=== PATIENT | male | born 1945 | race Caucasian/White ===

== ENCOUNTER 2025-09-28 14:32 | Emergency (ER) | payer MEDICARE, SELFPAY ==
--- NOTE | 2025-09-28 14:36 | ECG_ITS ---
Test Date: 2025-09-28 15:03:57 Measurements Intervals [place] Rate: 95 P: 0 IN: 0 QRS: -49 QRSD: 117 T: 80 QT: 363 QTc: 457 Interpretive Statements ATRIAL FIBRILLATION LOW QRS VOLTAGE IN PRECORDIAL LEADS INCOMPLETE RIGHT BUNDLE BRANCH BLOCK LEFT ANTERIOR FASCICULAR BLOCK POSSIBLE ANTERIOR MYOCARDIAL INFARCTION Electronically Signed On 09-28-2025 20:02:39 MANAGER CONTRACT by Kashmir Arreguin D.O
[2025-09-28 14:45] VITALS: BP 144/72; PULSE 77; RESP 20; TEMP 36.4; O2SAT 97
--- NOTE | 2025-09-28 15:23 | ED.SOB ---
HPI - SOB/Dyspnea General Chief Complaint: Shortness of Breath/Dyspnea Stated Complaint: Breathing Problems Time Seen by Provider: 09/28/25 15:00 Source: patient and RN notes reviewed Mode of arrival: ambulatory Limitations: no limitations History of Present Illness HPI Narrative: 79-year-old male patient presents to the [facility] complaining of shortness of breath last 2 weeks. Reports is worse with exertion no also reports a cough. She denies any chest pain. Patient reports leg swelling but he says that is chronic. Patient also reports some intermittent abdominal pain and orthopnea. Patient has a history diabetes, hypothyroid, atrial fibrillation, he takes Eliquis for at is on medications. Patient denies any history of congestive heart failure. Patient is a poor historian. Related Data Home Medications ?Medication ?Instructions ?Recorded ?Confirmed ?Last Taken ?Type apixaban 5 mg tablet (Eliquis) mg 09/28/25 Unknown History atorvastatin 80 mg tablet mg 09/28/25 Unknown History blood-glucose sensor (FreeStyle 09/28/25 09/28/25 Unknown History Dylan 3 Sensor device) diltiazem HCl 120 mg mg PO 09/28/25 Unknown History capsule,extended release 24 hr, controlled duloxetine 30 mg capsule,delayed mg PO 09/28/25 Unknown History release furosemide 40 mg tablet mg 09/28/25 Unknown History gabapentin 600 mg tablet mg 09/28/25 Unknown History glipizide 5 mg tablet mg 09/28/25 Unknown History insulin glargine 100 unit/mL (3 unit subcut 09/28/25 Unknown History mL) subcutaneous pen (Lantus Solostar U-100 Insulin) insulin lispro 100 unit/mL subcut 09/28/25 Unknown History subcutaneous pen lancets 33 gauge (OneTouch Delica 09/28/25 09/28/25 Unknown History Plus Lancet) levothyroxine 75 mcg tablet mcg 09/28/25 Unknown History pen needle, diabetic 32 gauge x 09/28/25 09/28/25 Unknown History (TRUEplus Pen Needle) Allergies Allergy/AdvReac Type Severity Reaction Status Date / Time aspirin Allergy Unknown Swelling Verified 09/28/25 15:11 Review of Systems Review of Systems: CONSTITUTIONAL: Denies fever, chills, or sweats. EYES: Denies visual changes, redness, or discharge. ENT: Denies rhinorrhea, congestion, sore throat, or otalgia. CARDIOVASCULAR: Denies chest pain, palpitations, dizziness, lightheadedness. Positive orthopnea and edema RESPIRATORY: Positive for cough and dyspnea. GASTROINTESTINAL: Denies abdominal pain, nausea, vomiting, or diarrhea. GENITOURINARY: Denies dysuria or hematuria. SKIN: Denies rash or itching. MUSCULOSKELETAL: Denies back pain, joint pain, or myalgia. NEUROLOGIC: Denies headache, numbness, or weakness. PSYCHIATRIC: Denies anxiety or depression. All other systems reviewed are negative, except as documented in HPI. PMFSH Comments At the time of my signature, I reviewed and agree with the nursing past medical, surgical, social, and family history. There is no relevant family history pertinent to the patient complaint. Exam Narrative: GENERAL: This is a well-nourished, well-developed adult, in no apparent distress. They are non ill-appearing, nontoxic appearing. HEAD: normocephalic, atraumatic. EYES: Sclera clear/white. Conjunctiva normal. Vision is grossly intact. Extraocular movements intact EARS: External ears normal, Hearing grossly intact. NOSE: External nose normal THROAT: Mucous membranes moist, NECK: Neck supple, no JVD CARDIOVASCULAR: Regular rate and rhythm without murmurs, gallops, or rubs. RESPIRATORY: Diminished. Breath sounds equal bilaterally. No wheezes, rales, or rhonchi. Respiratory rate normal, respiratory effort nonlabored, no respiratory distress GASTROINTESTINAL: Abdomen large, round, nondistended. Mild tenderness throughout. Bowel sounds are active. No hepato-splenomegaly, or palpable masses. No guarding or rigidity. SKIN: warm, Dry, intact with no suspicious lesions or rash, good texture and turgor. NEURO: awake, alert, and oriented to person, place and time. There were no obvious focal neurologic abnormalities. EXTREMITIES: Lower extremities are 3+ pitting. BACK: Nontender without deformity. No CVA tenderness. Course Course Emergency Course: Portions of this record may have been created with voice recognition software Level of Care: Express Care Visit Vital Signs Vital signs: Vital Signs Temperature 97.6 F 09/28/25 14:45 Pulse Rate 77 09/28/25 14:45 Respiratory Rate 20 09/28/25 14:45 Blood Pressure 144/72 H 09/28/25 14:45 Pulse Oximetry 97 09/28/25 14:45 Oxygen Delivery Room Air 09/28/25 14:45 Temperature 97.6 F 09/28/25 14:45 Pulse Rate 77 09/28/25 14:45 Respiratory Rate 20 09/28/25 14:45 Blood Pressure 144/72 H 09/28/25 14:45 Pulse Oximetry 97 09/28/25 14:45 Oxygen Delivery Room Air 09/28/25 14:45 Reviewed Transfer Transfered to: [facility] Transportation: Other (Private vehicle) Transfer rationale: Patient requires higher level care, further evaluation management. Accepting physician: Dr. Trivedi MDM - SOB/Dyspnea MDM Narrative Medical decision making narrative: EKG is atrial fibrillation at a rate of 95. No ischemic findings otherwise. Patient's symptoms are concerning for congestive heart failure. Vital signs hemodynamically stable, normal oxygen saturations. Patient is nontoxic appearing, no apparent distress. Given patient's symptoms, it is recommend the patient seek a higher level care and proceed immediately to the emergency department. Patient is agreeable to go to [facility] ER. Called over to [facility] ER and spoke to Richie Vinson who is aware this patient and Dr. Trivedi accepted the patient for transfer. Patient advised to remain NPO proceed immediately to the ER. Differential Diagnosis Differential diagnosis: Likely acute exacerbation of chronic obstructive airways disease, congestive heart failure, community acquired pneumonia, pulmonary embolism and other (Atrial fibrillation, acute coronary syndrome) ECG Data EKG #1: ECG completion date: 09/28/25 ECG completion time: 15:03 Prior ECG tracings: not available for review EKG Interpretation: normal rate, atrial fibrillation, no ST changes, normal QRS and normal QT Critical Care Time Critical Care Time Critical Care Time: No Discharge Plan Discharge Clinical Impression: Shortness of breath Patient Disposition: Acute Care Hospital Condition: Stable Patient Language: Mongolian Prescriptions: No Action furosemide 40 mg tablet atorvastatin 80 mg tablet gabapentin 600 mg tablet levothyroxine 75 mcg tablet diltiazem HCl 120 mg capsule,ext.rel 24h degradable PO glipizide 5 mg tablet insulin lispro 100 unit/mL insulin pen SUBCUT duloxetine 30 mg capsule,delayed release(DR/EC) PO insulin glargine [Lantus Solostar U-100 Insulin] 100 unit/mL (3 mL) insulin pen SUBCUT (DME) FreeStyle Dylan 3 Sensor Device MISCELLANEOUS (DME) pen needle, diabetic [TRUEplus Pen Needle] 32 gauge x 5/32 needle MISCELLANEOUS (DME) lancets [OneTouch Delica Plus Lancet] 33 gauge misc MISCELLANEOUS Eliquis 5 mg tablet Follow-up/Referrals: Harms,Luis Carlos Gay M.D. [Primary Care Provider] Time of Disposition: 15:23
== END 2025-09-28 15:17 | disposition short-term general hospital (02) ==
PROVIDERS: PCP Family Medicine
DX: R06.02 Shortness of breath (principal); E11.9 Type 2 diabetes mellitus without complications; Z79.4 Long term (current) use of insulin; Z79.84 Long term (current) use of oral hypoglycemic drugs; I48.91 Unspecified atrial fibrillation; E03.9 Hypothyroidism, unspecified; Z79.01 Long term (current) use of anticoagulants
CPT/HCPCS: 93005; 99213; G0463

== ENCOUNTER 2025-11-03 07:08 | Outpatient (CLI) | payer MEDICARE, SELFPAY ==
--- OUTSIDE RECORDS SUMMARY | 2025-11-02 14:10 | XMS_ITS | Encounter Summary ---
Author Organization [facility] Healthcare Address [address] [place] [address] Care Team Providers Care Tax Audit Manager Name Role Phone Luis Carlos Calzada MD Primary Care Provider [phone] Zena Pandya RN Unavailable [phone] Richie Arroyo CAN LINE OPERATOR Unavailable [phone] Encounter Details Date Type Department Care Team (Late st Contact Info) Description 11/02/2025 2:10 PM [employer] Lab [address] [id number] Arrived Social History Tobacco Use Types Packs/Day Years Used Date Smoking Tobacco: Never Smokeless Tobacco: Never Alcohol Use Standard Drinks/Week Comments Never 0 (1 standard drink = 0.6 oz pur e alcohol) Social Connection and Isolation Panel Answer Date Recorded In a typical week, how many times do you talk on the phone with family, friends, or neighbors? Three times a week 01/20/2025 How often do you get togethe r with friends or relatives? Twice a week 01/20/2025 How often do you attend chur ch or islam services? Never 01/20/2025 Do you belong to any clubs o r organizations such as sabianism groups, unions, fraternal or athletic groups, or school groups? No 01/20/2025 How often do you attend meet ings of the clubs or organizations you belong to? Never 01/20/2025 Are you , , di vorced, , never , or living with a partner? 01/20/2025 Overall Financial Resource Strain (CARDIA) Answe r Date Recorded How hard is it for you to pa y for the very basics like food, housing, medical care, and heating? Not very hard 01/20/2025 PHQ-2 Answer Date Recorded PHQ-2 Total Score (If total score is 3 or more points, staff should administer the PHQ-9) 0 10/14/2025 PRAPARE - Transportation Answer Date Re corded In the past 12 months, has l ack of transportation kept you from medical appointments or from getting medications? No 01/10 In the past 12 months, has l ack of transportation kept you from meetings, work, or from getting things needed for daily living? No 01/20/2025 Housing Stability Vital Sign Answer Robbie e Recorded In the last 12 months, was t here a time when you were not able to pay the mortgage or rent on time? No 03/26/2023 In the last 12 months, how many places have you lived? 1 03/26/2023 In the last 12 months, was t here a time when you did not have a steady place to sleep or slept in a mcfp (including now)? No 03/26/2023 Housing Stability Vital Sign Answer Robbie e Recorded In the last 12 months, was t here a time when you were not able to pay the mortgage or rent on time? No 01/20/2025 In the past 12 months, how m any times have you moved where you were living? 0 01/20/2025 At any time in the past 12 m [facility], were you homeless or living in a mcfp (including now)? No 01/20/2025 Social Connection and Isolation Panel Answer Date Recorded In a typical week, how many times do you talk on the phone with family, friends, or neighbors? Three times a week 10/15/2025 How often do you get togethe r with friends or relatives? Three times a week 10/15/2025 How often do you attend chur ch or islam services? Never 10/15/2025 Do you belong to any clubs o r organizations such as sabianism groups, unions, fraternal or athletic groups, or school groups? No 10/15/2025 How often do you attend meet ings of the clubs or organizations you belong to? Never 10/15/2025 Are you , , di vorced, , never , or living with a partner? 10/15/2025 AUDIT-C Answer Date Recorded Q1: How often do you have a drink containing alcohol? Never 09/28/2025 Q2: How many drinks containi ng alcohol do you have on a typical day when you are drinking? Patient does not drink Q3: How often do you have si x or more drinks on one occasion? Never 09/28/2025 Overall Financial Resource Strain (CARDIA) Answe r Date Recorded How hard is it for you to pa y for the very basics like food, housing, medical care, and heating? Not very hard 10/15/2025 Hunger Vital Sign Answer Date Recorded Within the past 12 months, y ou worried that your food would run out before you got the money to buy more. Never true 10/15/20 25 Within the past 12 months, t he food you bought just didn't last and you didn't have money to get more. Never true 10/15/2025 PRAPARE - Transportation Answer Date Re corded In the past 12 months, has l ack of transportation kept you from medical appointments or from getting medications? No 02/2025 In the past 12 months, has l ack of transportation kept you from meetings, work, or from getting things needed for daily living? No 10/15/2025 Housing Stability Vital Sign Answer Robbie e Recorded In the last 12 months, was t here a time when you were not able to pay the mortgage or rent on time? No 10/15/2025 Number of Times Moved in the Last Year Not on fi le 10/15/2025 At any time in the past 12 m [facility], were you homeless or living in a mcfp (including now)? No 10/15/2025 [facility] Utilities Answer Date Recorded In the past 12 months has th e electric, gas, oil, or water company threatened to shut off services in your home? No 10/15/2025 Personal Safety Answer Date Recorded Have you ever been in or are you currently in a harmful physical or emotional relationship or is someone making you feel afraid or unsafe? Denies 09/28/2025 Sex and Gender Information Value Date Recorded Sex Assigned at Not on file Legal Sex Male 11:50 PM [employer] Gender Identity Male 12/11/2022 7:20 PM [employer] Sexual Orientation Straight 05/18/2019 6: 29 PM CDT documented as of this encounter Plan of Treatment Not on file documented as of this encounter Goals Goal Patient Goal Type Associated Problems Recent Progress Patient-Stated? Author HF Goal - Patient's CP status will be stable with increased knowledge of self-care management ACO Care Management On track(10/22 3:59 PM [employer]) Dianna Ortiz RN Note: Problem: Heart Failure Interventions: - Assess for HF exacerbation: dyspnea at rest, reports of increased dyspnea with exertion, sudden weight gain of 3+lbs in 1 day or 5+lbs in 1 week, increased edema in legs/ankles, frequent dry hacking cough, loss of appetite, increased fatigue. - Provide education surrounding fluid restrictions, daily weights, energy conservation techniques, sodium restricted diet, edema control. - Send heart failure educational materials. TRISHA General Goal - Patient schedules and keeps appointments with all recommended providers ACO Care Management On track(10/22 3:58 PM [employer]) Zena Macias RN Note: Problem: Potential for medical complications and readmission if follow-up appointments are not scheduled Interventions: - Ensure all follow-up appointments are scheduled, all prescribed medications have been received. - Address any barriers for keeping scheduled appointment. - Coordinate with patient/caregiver(s) to ensure patient is able to keep scheduled appointment. - Emphasize importance of keeping scheduled appointments. - Identify and discuss questions for next provider visit. - Follow up with patient after scheduled appointment(s) to review any new orders or changes made to medication regimen. TRISHA General Goal - Patient / caregiver verbalizes lifestyle changes necessary to meet self-care needs and executes self-care activities to utmost capability ACO Care Management On track(10/22 3:58 PM [employer]) Zena Macias RN Note: Problem: At Risk for Self Care Deficit Interventions: - Assess patient's level of dependence on others along with current level of assistance being provided. - Use motivational interviewing to help guide the patient in accepting the needed amount of assisstance, as applicable. - Contact caregiver and assess their involvement with patient and level of assistance provided, as appropriate. - Assess appropriateness for Home Health. Start referral process if skilled need is present. - Encourage independent ADL's as appropriate. Ensure patient has the appropriate tools at home to be as independent as possible. - Provide fall prevention education to patient and caregiver. - Evaluate need for assistive devices. - Refer to SW if appropriate and patient is agreeable. TRISHA General Goal - Level of ADL/IADL assistance will meet patient's needs ACO Care Management On track(10/22 3:58 PM [employer]) Zena Macias RN Note: Problem: Inadequate assistance to manage ADL's/IADL's Interventions: - Contact current caregiver and assess their involvement with patient and level of assistance provided. Inquire if any other family or friends can provide additional assistance. - Assess appropriateness for Home Health. Start referral process if skilled need is present. - Encourage independent ADL's as appropriate. Ensure patient has the appropriate tools at home to be as independent as possible. - Refer to SW if appropriate and patient is agreeable. documented as of this encounter Procedures Procedure Name Priority Date/Time Associated Diagnosis Comments EGFR Routine 11/02/2025 2:24 PM [employer] RENAL FUNCTION PANEL Routine 11/02/2025 2:24 PM [employer] documented in this encounter Results * (ABNORMAL) eGFR (11/02/2025 2:24 PM [employer]) eGFR 29(L) >=60 mL/min/1. 73 m2 Comment: Interpretive Data Reference Interval Normal >/= 90 mL/min/1.73m2 Mildly decreased* 60 - 89 mL/min/1.73m2 Mildly to moderately decreased 45 - 59 mL/min/1.73m2 Moderately to severely decreased 30 - 44 mL/min/1.73m2 Severely decreased 15 - 29 mL/min/1.73m2 Kidney Failure < 15 mL/min/1.73m2 *Relative to young adult level Estimated glomerular filtration rate is determined by the 2020 CKD-EPI equation recommended by the National Kidney Foundation (A Unifying Approach to GFR Estimation: Recommendations of the NKF-ASK Task Force on Reassessing the Inclusion of Race in Diagnosing Kidney Disease, JASN 2020). The CKD-EPI equation should not be used for patients with unstable renal function and has not been validated in children and those over 70. Current interpretive data was last reviewed 2021. Blood 11/02/2025 2:24 PM [employer] 11/02/2025 2:53 PM [employer] us Ryan Aceves MD LAB BLOOD ORDERABLES Final Re sult [facility] ([place]) [facility] Department [place] [address] * (ABNORMAL) Renal function panel (11/02/2025 2:24 PM [employer]) Sodium 145 135 - 145 mmol/L Potassium, pl 4.9 3.3 - 4.9 mmol/L [facility] ([place]) Chloride 114(H) 97 - 110 mmol/L [facility] ([place]) CO2 21(L) 22 - 32 mmol/L [facility] ([place]) Anion gap 10 2 - 15 mmol/L [facility] ([place]) BUN 43(H) 6 - 25 mg/dL [facility] ([place]) Creatinine 2.29(H) 0.80 - 1.30 mg/dL [facility] ([place]) Glucose 69(L) 70 - 199 mg/dL [facility] ([place]) Comment: Interpretive Data Fasting glucose >/= 126 mg/dl is diagnostic for diabetes. Fasting is defined as no caloric intake for at least 8 hours. Fasting glucose between 100 mg/dl to 125 mg/dl is diagnostic of prediabetes. In a patient with classic symptoms of hyperglycemia or hyperglycemic crisis, a random glucose >/= 200 mg/dl is diagnostic for diabetes. In the absence of unequivocal hyperglycemia, results should be confirmed by repeat testing. The classification and Diagnosis of Diabetes Diabetes Care 202; 46: S19-S40. Current interpretive data was last revised 2022. Calcium 9.9 8.5 - 10.3 mg/dL [facility] ([place]) Phosphorus, pl 2.9 2.3 - 4.5 mg/dL [facility] ([place]) Albumin 4.1 3.5 - 5.0 g/dL [facility] ([place]) Blood 11/02/2025 2:24 PM [employer] 11/02/2025 2:53 PM [employer] Ryan Aceves MD LAB BLOOD ORDERABLES Final Re sult [facility] ([place]) 1 [facility] Department [place] [address] documented in this encounter Visit Diagnoses Not on filedocumented in this encounter Care Teams Tax Audit Manager Relationship Specialty Start Date End Date Luis Carlos Calzada MD [address] [place] [address] PCP - General 02/09/17 Zena Pandya RN [address] [place] [address] [address] [place], [place] [id number] Geographic Analyst 10/07/25 Richie Arroyo LCSW [address] [place] [address] [address] [place] [address] Graphic Design Professor 10/07/25 documented as of this encounter
--- NOTE | ~2025-11-03 | PE_ITS ---
EXAMINATION: PET_PETPSMAST_PT DATE: 11/03/2025 09:56 INDICATION: Prostate cancer TECHNIQUE: 5.202 mCi of Illucix Ga-68([id number]) was administered i.v. Low dose computed tomography (CT) images were acquired from the base of the brain to the base of the brain to the proximal thighs for attenuation correction and anatomic localization. Positron emission tomography (PET) images were acquired in the same distribution beginning 67 minutes after injection. Images including fused PET/CT images were reconstructed in axial, coronal, and sagittal planes. Automated exposure control technique was employed. The dose-length product was 1242.86mGy-cm. COMPARISON: None FINDINGS: Head/neck: Typical pattern of symmetric physiologic increased activity in the lacrimal, parotid and submandibular glands as well as along the mucosa of the nasal and oral cavities, pharynx and hypopharynx. No pathologically enlarged cervical lymphadenopathy or suspicious foci of increased uptake in the visualized head or neck. Chest: Calcified right upper lobe nodule along with calcified right hilar and mediastinal lymph nodes consistent with old granulomatous disease. No other suspicious pulmonary nodules, pneumonia or pleural effusion. Mild cardiomegaly. Atherosclerotic coronary artery calcifications and aortic valve calcific loc ation. No pericardial effusion. Thoracic aorta is normal in caliber. No pathologically enlarged or PSMA avid thoracic lymphadenopathy. Abdomen/pelvis/proximal thighs: Physiologic renal accumulation and excretion of activity in the kidneys, bladder and along portions of ureters. There are bilateral intraureteral stents with loops formed in the renal pelvises and in the bladder. 5 mm stone positioned along side the right internal ureteral stent at the junction of the mid to distal right ureter. There are additional renal stones, 2 in the left kidney measuring up to 5 mm and one in the left kidney measuring 4 mm. Photopenic defects associated with a couple renal cysts measuring 2.4 cm at the right kidney and 2.3 cm the left kidney. Status post prostatectomy. There is increased PSMA uptake associated with soft tissue density at the prostatectomy bed most prominent posteriorly, inferiorly and lateral and to lesser degree at the more cephalad prostatectomy bed peripheral to a central photopenic defect which would favor recurrent disease over urine activity. Normal degree and slightly heterogenous pattern of increased uptake throughout the liver and spleen without radiologic correlate or dominant PSMA avid lesion. Multiple small gallstones layering along the dependent aspect of the normal gallbladder. Dystrophic calcification at the head of the pancreas, likely sequela of chronic pancreatitis. Bilateral adrenal glands are normal. Moderate uptake scattered throughout the bowels with typical duodenal and proximal jejunal predominance and without radiologic correlate, also likely physiologic. Mild to moderate without adjacent from trace stranding to suggest diverticulitis. There are small to moderate-sized fat-containing direct and indirect left inguinal hernias. There are bilateral PSMA avid obturator lymph nodes measuring 7 mm in maximal diameter with maximal SUV of 15.3 on the left and measuring 5 mm with maximal SUV of 17.4 and 4 mm with maximal SUV of 4.0 on the right. There is an additional PSMA avid superior left external iliac chain lymph node measuring 8 mm in short axis diameter with central fatty hilum and with maximal SUV of 17.4. Musculoskeletal: Mild spondylosis with bridging osteophytes at multiple levels consistent with diffuse idiopathic skeletal hyperostosis (DISH). No suspicious lytic, blastic or abnormally PSMA avid bone lesions. IMPRESSION: 1. Prominent increased PSMA activity at what appears to be the bed of a prior prostatectomy which suggests residual/locally recurrent disease. 2. Increased activity associated with a normal-sized bilateral obturator and left external iliac chain lymph nodes consistent with metastatic disease. Reviewed, dictated and finalized at location A. RANCE ADVISER IMPRESSION: 1. Prominent increased PSMA activity at what appears to be the bed of a prior p rostatectomy which suggests residual/locally recurrent disease. 2. Increased activity associated with a normal-sized bilateral obturator and le ft external iliac chain lymph nodes consistent with metastatic disease.
--- OUTSIDE RECORDS SUMMARY | 2025-11-03 07:13 | XMS_ITS ---
Author Organization [facility] Address [address] [place] [address] Care Team Providers Care Mat Weaver Name Role Phone Luis Carlos Calzada MD Primary Care Provider [phone] Zena Pandya RN Unavailable [phone] Richie Arroyo NAILHEAD OPERATOR Unavailable [phone] Active Problems Problem Noted Date Diagnosed Date Shortness of breath 09/28/2025 Assessment & Plan (10/14/2025 11:27 AM HEAD OF IT): Resolved. Will continue to monitor. Elevated brain natriuretic peptide (BNP) level 1 11/28/2024 Assessment & Plan (10/14/2025 11:27 AM HEAD OF IT): Will continue to monitor. Swelling improved. Pneumonia 09/28/2025 Assessment & Plan (10/14/2025 11:27 AM HEAD OF IT): Resolved. Will continue to monitor. Hyperkalemia 09/28/2025 Assessment & Plan (10/14/2025 11:27 AM HEAD OF IT): Will get updated labs. Will continue to monitor. LORAINE (acute kidney injury) 09/28/2025 Assessment & Plan (10/14/2025 11:27 AM HEAD OF IT): Improving. Will continue to monitor. Will be getting updated kidney function labs next week. Continues to follow with Nephrology and Urology. Will continue to monitor. Hypertension associated with diabetes 01/22/2025 Assessment & Plan (09/10/2025 11:05 AM CDT): Stable and well-controlled. Continues on Cardizem. We will continue to monitor. Congestive heart failure, un specified HF chronicity, unspecified heart failure type 01/09/2025 Assessment & Plan (10/14/2025 11:27 AM HEAD OF IT): SOB resolved. Lower leg swelling improving. Will continue to hold Lasix while waiting for kidney function to improve. Continues to follow with Cardiology and Nephrology. Will continue to monitor. Continues on Cardizem Assessment & Plan (09/10/2025 11:05 AM CDT): Stable and well controlled. No issues with shortness or wheezing. No lower leg swelling. Continues on Cardizem. We will continue to monitor and follow with Cardiology. Assessment & Plan (02/26/2025 8:28 AM CDT): Having SOB with some wheezing. Lasix is not being given due to LORAINE. Having lower leg swelling as well. No CP. Will get BNP to assess fluid status. Orders: Pro B-type natriuretic peptide; Future Type 2 diabetes mellitus wit h stage 4 chronic kidney disease, with long-term current use of insulin 08/26/2024 Assessment & Plan (10/14/2025 11:27 AM HEAD OF IT): Will get updated labs. Continues to avoid NSAIDs and other nephrotoxic medications. Will continue to follow with nephrology. Will continue to monitor. Assessment & Plan (09/10/2025 11:05 AM CDT): Does show some decrease in kidney function. Continues to avoid nephrotoxic medications and ensure proper hydration. We will continue to monitor. Continues to work on tight control of blood pressure and cholesterol. Assessment & Plan (02/26/2025 8:28 AM CDT): Will repeat CMP and monitor. Continues to hold lasix and avoiding NSAIDs. Orders: Comprehensive metabolic panel; Future Albumin Creatinine Ratio, Urine; Future Assessment & Plan (11/27/2024 1:11 PM HEAD OF IT): Continue to monitor CMP, eGFR, and discussed avoiding NSAIDs due to kidney disease. Will recheck in 3 months. Following with Nephrology Assessment & Plan (08/26/2024 10:42 AM CDT): Continue to monitor CMP, eGFR, and discussed avoiding NSAIDs due to kidney disease. Will recheck in 3 months. Following with Nephrology. Medicare annual wellness visit, subsequent 08/20 Assessment & Plan (09/10/2025 11:05 AM CDT): In regard to health maintenance, DM-annual visual examination and podiatry visits every 3 months advised. Influenza vaccine- Given in office Eat a healthy diet: focus on lean meats and proteins, more fruits, vegetables and whole grains and low in sugars and fats. Limit red meat and avoid processed meat. Maintain a healthy weight; avoid being overweight. Aim for a normal body mass index (BMI) of 18.5-24.9. Help learning to eat healthier, we can set up appointment with certified addiction counselor/warehouse packer. Have an active lifestyle, strive for 30 minutes of moderate exercise 5 times a week and strength or resistance training at least twice a week. Use broad-spectrum (UVA+UVB) sunscreen with SPF 30 or greater, is water resistant, limit time spent in the sun (10 am-4pm), wear hat, wear UV protective clothing, wear sunglasses. Never use a tanning bed. Skin that was irradiated may be more sensitive over your lifetime. Do not smoke or chew tobacco; participate in a smoking cessation program. Limit alcohol intake, 1 drink per day for a woman and 2 drinks per day for a man. Assessment & Plan (08/26/2024 10:34 AM CDT): In regard to health maintenance, PSA- ordered DM-annual visual examination and podiatry visits every 3 months advised. Influenza vaccine- Declined ASCVD risk: 45.8% Eat a healthy diet: focus on lean meats and proteins, more fruits, vegetables and whole grains and low in sugars and fats. Limit red meat and avoid processed meat. Maintain a healthy weight; avoid being overweight. Aim for a normal body mass index (BMI) of 18.5-24.9. Help learning to eat healthier, we can set up appointment with certified addiction counselor/warehouse packer. Have an active lifestyle, strive for 30 minutes of moderate exercise 5 times a week and strength or resistance training at least twice a week. Use broad-spectrum (UVA+UVB) sunscreen with SPF 30 or greater, is water resistant, limit time spent in the sun (10 am-4pm), wear hat, wear UV protective clothing, wear sunglasses. Never use a tanning bed. Skin that was irradiated may be more sensitive over your lifetime. Do not smoke or chew tobacco; participate in a smoking cessation program. Limit alcohol intake, 1 drink per day for a woman and 2 drinks per day for a man. Assessment & Plan (08/20/2023 9:42 AM CDT): Preventive exam; reviewed recommended preventive screenings and vaccinations. Encourage annual flu vaccine. Hypothyroidism 08/20/2023 Assessment & Plan (09/10/2025 11:05 AM CDT): Euthyroid. We will continue on Synthroid. We will continue to monitor. Assessment & Plan (02/26/2025 8:28 AM CDT): Euthryoid. Will repeat levels. Will continue on Synthroid. Will continue to monitor. Orders: TSH; Future T4, free; Future Assessment & Plan (08/26/2024 10:05 AM CDT): Levothyroxine increased to 75 mcg will recheck in 3 months. Assessment & Plan (08/20/2023 9:43 AM CDT): Levothyroxine 50 mcg daily. Will check TSH/T4 and make changes as needed. Lab Results Component Value Date TSH 3.51 06/29/2022 TSH 7.87 (H) 11/18/2021 TSH 5.86 (H) 11/27/2014 Pharyngoesophageal dysphagia 10/20/2022 Assessment & Plan (10/20/2022 11:43 AM HEAD OF IT): Try to swallow with sips of water all dry foods Modified Barium swallow study Laryngeal spasm 10/20/2022 Assessment & Plan (10/20/2022 11:44 AM HEAD OF IT): Try to swallow with sips of water all dry foods Modified Barium swallow study Centralized Scheduling: Start Pepcid (Famotidine) 40 mg at bedtime Acute on chronic diastolic congestive heart fail ure 08/23/2022 Assessment & Plan (09/10/2025 11:05 AM CDT): Stable and well-controlled. Continues to show no signs of fluid overload. Denies shortness of breath, wheezing, or difficulty sleeping when lying down. Continues on Cardizem and Eliquis. We will continue to monitor. Assessment & Plan (01/22/2025 10:03 AM CDT): Symptomatically improved. Limit sodium. Will hold furosemide for now due to LORAINE. Monitor symptoms closely. Follow-up with cardiology and nephrology. Red flags reviewed. Assessment & Plan (11/27/2024 1:11 PM HEAD OF IT): Stable and well controlled. Will continue on Lasix. No signs of fluid overload. Will continue to monitor. Assessment & Plan (08/26/2024 10:38 AM CDT): Continues on Laxis. Patient no longer following with Cardiology. Encouraged to get in and get appointment. DELPHINE (obstructive sleep apnea) 08/23/2022 Assessment & Plan (09/10/2025 11:05 AM CDT): Compliant with nightly CPAP use. Does state that if he loses another 10 lb can get the inspire implantable device. We will continue to monitor. Denies daytime fatigue or drowsiness. Assessment & Plan (01/22/2025 10:02 AM CDT): Highly encouraged CPAP use. Assessment & Plan (08/26/2024 10:05 AM CDT): Not using CPAP discussed benefits of wearing machine on overall health. Assessment & Plan (08/20/2023 9:41 AM CDT): Does not currently CPAP. Discussed untreated sleep apnea contributing to cardiovascular risk. Dyslipidemia associated with type 2 diabetes ivet litus 12/23/2020 Assessment & Plan (09/10/2025 11:05 AM CDT): LDL at goal of less than 70. We will continue to monitor. We will continue on atorvastatin. Stable and well-controlled. Orders: atorvastatin (LIPITOR) 80 mg tablet; Take 1 tablet (80 mg total) by mouth daily Assessment & Plan (02/26/2025 8:28 AM CDT): Lipid panel ordered. Will continue to monitor. Continues on Atorvastatin. Orders: Lipid panel; Future Assessment & Plan (11/27/2024 1:10 PM HEAD OF IT): Lipid panel order placed by another provider. Will get labs today. Will continue to monitor. Will continue on Atorvastatin and monitor. Assessment & Plan (08/26/2024 10:04 AM CDT): Lipid panel not stable. Lipitor increased to 80 mg. Discussed heart healthy diet and lifestyle. Will recheck in 3 months. Assessment & Plan (08/20/2023 9:21 AM CDT): Continues atorvastatin 40 mg daily. Assessment & Plan (03/22/2021 10:15 AM CDT): Atorvastatin 40mg daily Patient should focus on limiting bad fats in the diet and using exercise as a way to improve the lipid status. Secondary prevention. Reviewed medications. Denies any statin Ses. Reviewed diet/exercise recommendations. Reviewed red flags. Assessment & Plan (12/23/2020 2:16 PM HEAD OF IT): Lab Results Component Value Date CHOL 137 12/15/2020 CHOL 152 06/10/2020 CHOL 194 02/11/2019 HDL 42 12/15/2020 HDL 38 (L) 06/10/2020 HDL 40 02/11/2019 LDL 151 (H) 03/05/2017 LDL 127 09/20/2016 LDL 136 (H) 02/03/2016 TRIG 142 12/15/2020 TRIG 183 (H) 06/10/2020 TRIG 176 (H) 02/11/2019 Patient should focus on limiting bad fats in the diet and using exercise as a way to improve the lipid status. Secondary prevention. Reviewed medications. Lipid panel ordered; will call w/results when rec'd. Denies any statin Ses. Reviewed diet/exercise recommendations. Reviewed red flags. Class 2 severe obesity with serious comorbidity and body mass index (BMI) of 36.0 to 36.9 in adult 12/23/2020 Assessment & Plan (10/14/2025 11:27 AM HEAD OF IT): Encouraged heart healthy diet and lifestyle. Advised 150 min/week of aerobic exercise. Assessment & Plan (09/10/2025 11:05 AM CDT): Encouraged heart healthy diet and lifestyle. Advised 150 min/week of aerobic exercise. To be congratulated on weight loss success. Continues to keep up the good work. Assessment & Plan (02/26/2025 8:28 AM CDT): Encouraged heart healthy diet and lifestyle. Advised 150 min/week of aerobic exercise. Assessment & Plan (01/22/2025 10:02 AM CDT): Limit sodium intake. Monitor weight. Assessment & Plan (11/27/2024 1:10 PM HEAD OF IT): Weight appropriate for patient. Assessment & Plan (08/26/2024 10:04 AM CDT): Encouraged heart healthy diet and lifestyle. Advised 150 min/week of aerobic exercise. Assessment & Plan (03/22/2021 10:10 AM CDT): Reviewed need to lose weight, reviewed health benefits. Reviewed recommendations for daily intake & activity 20-30 minutes/day. Discussed healthy diet and importance of regular physical activity. Assessment & Plan (12/23/2020 2:25 PM HEAD OF IT): Reviewed need to lose weight, reviewed health benefits. Reviewed recommendations for daily intake & activity 20-30 minutes/day. Discussed healthy diet and importance of regular physical activity. Has been exercising regularly. Prostate cancer 11/26/2020 Overview (11/26/2020): Added automatically from request for surgery [id number] Assessment & Plan (09/10/2025 11:05 AM CDT): Stable and controlled. Continues to follow with Urology. We will continue to monitor. Assessment & Plan (08/26/2024 10:03 AM CDT): PSA lab ordered for next appointment. Continue to follow with Urology. Assessment & Plan (08/20/2023 9:39 AM CDT): PSA check every 6 months following with urology. Assessment & Plan (03/22/2021 10:11 AM CDT): Had surgery 01/04/21 w/Dr Evans. Has healed w/o difficulty. Denies any urinary issues. Reports that chemo/xrt not indicated. Assessment & Plan (12/23/2020 2:15 PM HEAD OF IT): Has surgery scheduled 01/04/21 w/Dr Evans. History of colonic polyps 10/29/2020 Overview (10/29/2020): Added automatically from request for surgery [id number] Need for influenza vaccination 09/22/2020 Assessment & Plan (09/10/2025 11:05 AM CDT): Flu vaccine given in office today. Orders: Flu Vaccine High Dose Tri PF 65y+ IM - Fluzone High Dose () Assessment & Plan (11/27/2024 1:09 PM HEAD OF IT): Flu vaccine given at appointment Assessment & Plan (09/22/2020 10:39 AM HEAD OF IT): Flu vaccine given today. Discussed possible tenderness/redness at injection site. Colon cancer screening 09/22/2020 Assessment & Plan (09/22/2020 10:38 AM HEAD OF IT): Refuses colonoscopy; aware that it is gold standard for CRC screening. Agreeable to cologuard. Aware that cologuard kit will be mailed with directions. To call if no results rec'd 1-2 weeks after kit mailed back for completion of test. Diabetic polyneuropathy asso ciated with type 2 diabetes mellitus 09/22/2020 Assessment & Plan (09/10/2025 11:05 AM CDT): Reports significant improvement better control of blood sugars. Continues on duloxetine 30 mg daily. We will continue to monitor. Assessment & Plan (02/26/2025 8:28 AM CDT): Continues to having neuropathy. Continues with Duloxetine and Gabapentin. Will continue to monitor. Assessment & Plan (11/27/2024 1:09 PM HEAD OF IT): Neuropathy not well controlled. Will continue on Gabapentin. Referral placed to Neurology as well for additional relief and evaluation. Assessment & Plan (08/26/2024 10:03 AM CDT): Continue on Gabapentin. Feet are unchanged. Assessment & Plan (12/23/2020 2:15 PM HEAD OF IT): Improvement noted w/gabapentin. Denies any med SE. Assessment & Plan (09/22/2020 11:45 AM HEAD OF IT): +neuropathy. Aware to check feet. Discussed worsening if BG remains uncontrolled. Hx of colonic polyps 05/20/2020 Overview (05/20/2020): Added automatically from request for surgery [id number] Elevated PSA 05/10/2019 Assessment & Plan (12/23/2020 2:12 PM HEAD OF IT): Scheduled for prostate surgery 01/04/21 w/Dr Evans. Assessment & Plan (09/22/2020 11:46 AM HEAD OF IT): Has bx 09/30/20 w/Dr Evans at [facility]. MRI shows high suspicion for malignancy. Assessment & Plan (05/10/2019 9:33 AM CDT): PSA 02/11/19 PSA=8.94. Will repeat. Can be discussed w/Dr Galeana at [facility] for kidney stones also. Screening for malignant neoplasm of colon 2017 Primary osteoarthritis of right knee 07/17/2017 Assessment & Plan (08/26/2024 10:01 AM CDT): Parking placard filled out for patient. Discussed avoiding NSAIDs due to kidney disease, and taking Tylenol 650 mg PRN ordered. Type 2 diabetes mellitus wit h hypoglycemia, with long-term current use of insulin 03/14/2017 Overview (04/06/2017): Type 2 diabetes mellitus with hyperglycemia, without long-term current use of insulin Assessment & Plan (10/14/2025 11:27 AM HEAD OF IT): Blood sugar low at 68 despite eating bonita's and breakfast this AM. Increased and started to resolve symptoms after eating jelly beans. Will decrease Lantus to 24 Units and continue to follow sliding scale insulin instructions. Will continue on Glipizide. Lab Results Component Value Date HGBA1C 7.9 (H) 08/28/2025 HGBA1C 8.9 (H) 03/19/2025 HGBA1C 11.1 (H) 01/12/2025 Office Visit on 10/14/2025 Component Date Value Ref Range Status Glucose Blood, POC 10/14/2025 68 Normal Fasting 70 - 100, Random <200 mg/dL Final Orders: insulin glargine (LANTUS) 100 unit/mL (3 mL) pen for injection; Inject 24 Units under the skin nightly POCT glucose Assessment & Plan (09/10/2025 11:05 AM CDT): Stable and well-controlled. Significant improvement in A1c. We will continue on glipizide, Lantus, and Humalog. We will continue to monitor. Lab Results Component Value Date HGBA1C 7.9 (H) 08/28/2025 HGBA1C 8.9 (H) 03/19/2025 HGBA1C 11.1 (H) 01/12/2025 Assessment & Plan (02/26/2025 8:28 AM CDT): Having low blood sugars in the morning around the 60s. He states he is having nightly blood sugars around 200s which he thinks is why after the 28 units his blood sugar is low in the AM. Advised if less than 210 to do 24 units and we will monitor. Will continue on Lantus nightly, Humalog with meals, Glipizide, and monitoring blood sugars. Orders: Comprehensive metabolic panel; Future CBC with auto differential; Future Hemoglobin A1c; Future Assessment & Plan (01/22/2025 10:03 AM CDT): Improving. Continue current regimen. Keep follow-up next month to re-evaluate. RTC sooner for any concerns. Red flags reviewed. Assessment & Plan (11/27/2024 1:09 PM HEAD OF IT): Still having elevated blood sugars even after increases Lantus to 28 units. Will restart Humalog with meals and continue to monitor. Lab Results Component Value Date HGBA1C 10.4 (H) 08/19/2024 HGBA1C 9.4 (H) 08/13/2023 HGBA1C 8.7 (H) 06/14/2023 Assessment & Plan (10/07/2024 11:35 AM HEAD OF IT): Blood sugar 312 in office. A1C [id number]. Lantus increased 28 U nightly. Will use CGM for blood sugar monitoring. Will recheck in 3 months. Assessment & Plan (08/20/2023 9:40 AM CDT): Instructed to resume glipizide, to take 2.5 mg twice daily. Continue basaglar 25 units nightly and lispro for bs >150. A1c not at goal. Will repeat labs in 3 months. Assessment & Plan (12/23/2020 2:13 PM HEAD OF IT): Lab Results Component Value Date HGBA1C 9.9 (H) 12/15/2020 HGBA1C 11.5 % 09/22/2020 HGBA1C 10.8 (H) 06/10/2020 Improvement in A1c. Congratulated on results--especially over the holidays. Reviewed dietary/exercise recommendations. Instructed to perform daily foot check. Reviewed medication side effects & scheduling. To check/record FSBS & bring to appointments. Labs ordered; will call with results when received. To make follow up appointment in 3 months. Reviewed red flags; what would warrant further evaluation. Assessment & Plan (04/06/2020 1:46 PM CDT): Reviewed diabetic diet and need for complete labs and will await these pending labs. Other emphysema 09/14/2016 Overview (02/16/2017): COPD Assessment & Plan (09/10/2025 11:05 AM CDT): Stable and well-controlled. Continues to show no signs of recent flare-ups or shortness of breath. We will continue to monitor. Not currently using any inhalers. Assessment & Plan (02/26/2025 8:28 AM CDT): Stable and no recent flare ups. Continues to use Albuterol inhaler PRN and Breo Ellipta with relief. Assessment & Plan (08/26/2024 10:01 AM CDT): Controlled Ellipta. Denies recent exacerbations and continues to follow with Pulmonology. Assessment & Plan (08/20/2023 9:20 AM CDT): Following with pulmonology Dr. Canales. Continues breo ellipta. Denies any recent exacerbations or need for albuterol. Assessment & Plan (03/22/2021 10:10 AM CDT): Has rescue inhaler but no maintenance inhaler. No exacerbations. Doing well w/o inhalers currently. Assessment & Plan (12/23/2020 2:26 PM HEAD OF IT): No exacerbations. Denies SOB/cough. Assessment & Plan (04/06/2020 1:47 PM CDT): No recent exacerbation. Symptoms have been well controlled. Benign prostatic hyperplasia without urinary obs truction 04/29/2014 Assessment & Plan (09/10/2025 11:05 AM CDT): Stable and controlled. Will continue to monitor. Assessment & Plan (02/26/2025 8:28 AM CDT): Stable and controlled. Will continue to monitor. Assessment & Plan (12/23/2020 2:13 PM HEAD OF IT): Has prostate surgery scheduled for 01/04/21 w/Dr Evans. Hypogonadism in male 01/28/2014 Current Treatment and Therapy Plans No current plan information found. Past Treatment and Therapy Plans No past plan information found. Lifetime Dose Tracking * Chemical Lifetime Dose Automatic Entry Manual Entr y Fluoro Time 5.433 minutes 4.933 minutes 0.5 minutes Air kerma at the reference point (Ka,r) 195.79 mGy 1 95.79 mGy 0 mGy Resolved Problems Problem Noted Date Diagnosed Date Resolved Date Diabetic polyneuropathy asso ciated with type 2 diabetes mellitus 08/20/2023 08/26/2024 Assessment & Plan (08/20/2023 9:41 AM CDT): Discussed importance of glycemic control. Continue gabapentin. Checking feet daily. Osteomyelitis of left foot, unspecified type 3 08/26/2024 Multifocal atrial tachycardia 08/23/2022 08/26/2024 Assessment & Plan (08/26/2024 10:34 AM CDT): Controlled with Diltiazem. Morbid (severe) obesity due to excess calories 06/29/2022 11/27/2024 Need for pneumococcal vaccination 09/22/2020 12/23/2020 Assessment & Plan (09/22/2020 10:39 AM HEAD OF IT): Pneumovax 23 vaccine given today. Discussed possible tenderness/redness at injection site. BMI 38.0-38.9,adult 09/22/2020 12/23/19 21 Assessment & Plan (09/22/2020 10:38 AM HEAD OF IT): Reviewed need to lose weight, reviewed health benefits. Reviewed recommendations for daily intake & activity 20-30 minutes/day. Discussed healthy diet and importance of regular physical activity. Uncontrolled type 2 diabetes mellitus with hyperglycemia 09/22/2020 08/26/2024 Assessment & Plan (08/26/2024 10:02 AM CDT): BS was 312 in office. A1C not at goal. Increased Lantus to 28 Units nightly. Will recheck in 3 months. Assessment & Plan (03/22/2021 10:12 AM CDT): Lab Results Component Value Date HGBA1C 9.9 (H) 12/15/2020 HGBA1C 11.5 % 09/22/2020 HGBA1C 10.8 (H) 06/10/2020 A1c=9.2% today. Has been trying to improve diet. Discussed increasing activity. Reviewed dietary/exercise recommendations. Instructed to perform daily foot check. Reviewed medication side effects & scheduling. To check/record FSBS & bring to appointments. To make follow up appointment in 3 months. Reviewed red flags; what would warrant further evaluation. Assessment & Plan (12/23/2020 2:24 PM HEAD OF IT): Lab Results Component Value Date HGBA1C 9.9 (H) 12/15/2020 HGBA1C 11.5 % 09/22/2020 HGBA1C 10.8 (H) 06/10/2020 Improvement in A1c. Congratulated on results--especially over the holidays. ozempic 0.25mg subcutaneous injection every 7 days. Reviewed med SE& scheduling. Reviewed dietary/exercise recommendations. Instructed to perform daily foot check. Reviewed medication side effects & scheduling. To check/record FSBS & bring to appointments. Labs ordered; will call with results when received. To make follow up appointment in 3 months. Reviewed red flags; what would warrant further evaluation. Assessment & Plan (09/22/2020 11:48 AM HEAD OF IT): Refuses insulin at this time. Lab Results Component Value Date HGBA1C 11.5 % 09/22/2020 HGBA1C 10.8 (H) 06/10/2020 HGBA1C 10.6 10/07/2019 Hand out for glycemic index given to Mr & Mrs Hill. Discussed diet. Needs to greatly change diet & increase activity. Discussed poor healing after prostate bx d/t elevated BG/A1c. Reviewed end-organ damage. Website/info for ADA given to Mr Mrs Hill to review DM education, tips, help. Declines repeat DM educator. Stressed need for great diet/activity changes at this time. Declines insulin/injections at this time. Discussed need for additional meds if he cannot get under control with increased activity/improved diet. Hyperlipidemia 04/06/2020 12/23/2020 Assessment & Plan (09/22/2020 11:46 AM HEAD OF IT): Poor diet habits. We will check labs and make adjustments to medications as needed. Patient should focus on limiting bad fats in the diet and using exercise as a way to improve the lipid status. Secondary prevention. Reviewed medications. Lipid panel ordered; will call w/results when rec'd. Denies any statin Ses. Reviewed diet/exercise recommendations. Reviewed red flags. Assessment & Plan (04/06/2020 1:47 PM CDT): Reviewed heart healthy eating. Bilateral kidney stones 05/21/201909/12 Overview (05/21/2019): Added automatically from request for surgery [id number] Refused influenza vaccine 05/10/2019 Obesity (BMI 30-39.9) 05/10/20192020 Assessment & Plan (04/06/2020 1:47 PM CDT): Weight loss encouraged. Assessment & Plan (05/10/2019 9:33 AM CDT): Reviewed need to lose weight, reviewed health benefits. Reviewed recommendations for daily intake & activity 20-30 minutes/day. Discussed healthy diet and importance of regular physical activity. Swelling of lower extremity 03/02/2017 12/23/2020 Overview (04/06/2017): Left leg swelling Preoperative state 12/01/2016 0 Overview (02/16/2017): Preoperative clearance Calculus of kidney 01/28/2014 5 Assessment & Plan (05/10/2019 9:32 AM CDT): Referral to Dr Galeana. Will continue flomax until seen. Aware to push fluids. Strain urine. Specimen cup given to bring in any stones for testing. Reviewed med side effects & scheduling. Discussed different options of treatment: stents or lithotripsy if unable to pass stone on own. Reviewed red flags; what would warrant more emergent evaluation.
--- OUTSIDE RECORDS SUMMARY | 2025-11-03 07:13 | XMS_ITS | Encounter Summary ---
Author Organization [facility] Healthcare Address [address] [place] [address] Care Team Providers Care Event Marketing Manager Name Role Phone Luis Carlos Calzada MD Primary Care Provider [phone] Carlos Mcneill PT Unavailable Unavailable Maria Luisa Pittman FLOORWORKER DISTRIBUTOR Unavailable Unavailab Gordo Owens PT Unavailable Unavaila ble Dianna Stanford RN Unavailable [phone] Maranda Pitts RN Unavailable [phone] Maranda Pitts RN Unavailable [phone] Xiomy Morgan CDAnusha Unavailable Dianna Stanford RN Unavailable Zena Pandya RN Unavailable Richie Arroyo LCSW Unavailable [phone] Encounter Details Date Type Department Care Team (Late st Contact Info) Description 09/10/2020 Telephone [facility] Radiology [address] [place] [address] Tasha Purcell, CHRISTIAN [address] [place] [address] Social History Tobacco Use Types Packs/Day Years Used Date Smoking Tobacco: Never Smokeless Tobacco: Never Alcohol Use Standard Drinks/Week Comments No 0 (1 standard drink = 0.6 oz pur e alcohol) PHQ-2 Answer Date Recorded PHQ-2 Score 0 07/02/2019 Sex and Gender Information Value Date Recorded Sex Assigned at Not on file Legal Sex Male 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 Gender Identity Male 12/11/2022 7:20 PM CNC MACHINE OPERATOR Sexual Orientation Straight 05/18/2019 6: 29 PM CDT documented as of this encounter Plan of Treatment Not on file documented as of this encounter Visit Diagnoses Not on filedocumented in this encounter Additional Health Concerns Infection Onset Date Last Indicated Resolved Time COVID: Suspected 10/11/2021 10/11/2021 10/11/2021 9:12 AM CNC MACHINE OPERATOR COVID: Suspected 10/11/2021 10/11/2021 10/11/2021 5:06 PM CNC MACHINE OPERATOR COVID: Suspected 01/09/2025 01/09/2025 01/09/2025 11:18 PM CNC MACHINE OPERATOR documented as of this encounter Care Teams Event Marketing Manager Relationship Specialty Start Date End Date Luis Carlos Calzada MD [address] [place] [address] PCP - General 02/09/17 Carlos Mcneill, PT Physical Therapist Physical Therapy 01/07/18 10/06/25 Maria Luisa Pittman, FLOORWORKER DISTRIBUTOR Physical Therapist Physical Therapy 01/14/1809/13 Gordo Burnette, PT Physical Therapist Physical Therapy 01/28/18 Dianna Stanford RN [address] [place] [address] [place] [address] Genetic Engineer 03/29/23 05/02/23 Maranda Pitts RN [address] [place] [address] [address] [place] [address] Genetic Engineer 05/03/23 06/05/23 Maranda Pitts RN [address] [place] [address] [address] [place] [address] Genetic Engineer 06/06/23 08/30/23 Xiomy Morgan CDE [address] [place] [address] [address] [place] [address] Director Volunteer Services 06/25/23 07/03/23 Dianna Stanford RN [address] [place] [address] [place] [address] Genetic Engineer 01/19/25 02/09/25 Zena Pandya RN [address] [place] [address] [address] [place] [address] Genetic Engineer 10/07/25 Richie Arroyo LCSW [address] [place] [address] [address] [place] [address] Skein Yard Drier 10/07/25 documented as of this encounter
--- OUTSIDE RECORDS SUMMARY | 2025-11-03 07:13 | XMS_ITS | Clinical Summary ---
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 Dx: hyperglycemia 300 each 3 019 Active lancets 23 gauge misc USE TO TEST BLOOD SUGAR 1 TIME DAILY-E11.9 100 each 3 023 Active lancets 30 gauge misc Use as directed to test blood sugars daily. Dx: E11. 42 100 each 3 023 Active blood glucose diagnostic (OneTouch Verio test strips) stripIndication s:Type 2 diabetes mellitus with hyperglycemia, with long-term current use of insulin (HCC) 1 each by other route as directed Use test strip two times a day before meals. 100 each 2 024 Active blood-glucose meter (OneTouch Verio Flex meter) miscIndications :Type 2 diabetes mellitus with hyperglycemia, with long-term current use of insulin (HCC) Use to test blood sugar twice a day DX: E11.69 type 2 diabetes non insulin independent 1 each 024 Active lancets (Lancets,Thin) 23 gauge miscIndications :Type 2 diabetes mellitus with hyperglycemia, with long-term current use of insulin (HCC) Use as directed to check blood sugar, type 2 diabetes mellitus without long-term use of insulin, 2 times a day 1 each 1 Active pen needle, diabetic (TRUEplus Pen Needle) 32 gauge x 5/32 needle USE 1 NEW PEN NEEDLE WITH EACH INJECTION 3 TIMES A DAY BEFORE MEALS AND NIGHTLY WITH NOVOLOG ANG 100 each 3 Active dilTIAZem CD/XR/XT (CARDIZEM CD,DILACOR XR) 120 mg 24 hr capsule Take 1 capsule (120 mg total) by mouth daily 30 capsule 11 2025 Active apixaban (ELIQUIS) 5 mg tabletIndicatio ns:atrial fibrillation Take 1 tablet (5 mg total) by mouth every 12 (twelve) hours 60 tablet 11 025 2025 Active albuterol HFA (Ventolin HFA) 90 mcg/actuation inhaler Inhale 2 puffs every 6 (six) hours as needed for wheezing 18 g 3 Active blood-glucose sensor (FreeStyle Dylan 3 Sensor) device Freestyle Dylan 3 sensor use for 14 days to monitor blood sugar., E11.65/Z79.4 6 each [address] (CYMBALTA) 30 mg capsuleIndicati ons: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) TAKE 1 CAPSULE BY MOUTH EVERY DAY 90 capsule 1 Active glipiZIDE (GLUCOTROL) 5 mg tablet TAKE 1 TABLET BY MOUTH TWICE DAILY BEFORE BREAKFAST AND LUNCH 180 tablet Active levothyroxine (SYNTHROID) 75 mcg tabletIndicatio ns:Hypothyroidi sm, unspecified type TAKE 1 TABLET BY MOUTH EVERY DAY 90 tablet 3 025 Active atorvastatin (LIPITOR) 80 mg tabletIndicatio ns:Dyslipidemia associated with type 2 diabetes mellitus (HCC) Take 1 tablet (80 mg total) by mouth daily Active furosemide (LASIX) 40 mg tablet Take 1 tablet (40 mg total) by mouth daily Active insulin lispro (HumaLOG, ADMELOG) 100 unit/mL vial for injection Inject 1-14 Units under the skin 3 (three) times a day before meals Sliding scale Active tamsulosin (FLOMAX) 0.4 mg extended release capsule Take 1 capsule (0.4 mg total) by mouth daily with dinner 30 capsule 1 025 2025 Active gabapentin (NEURONTIN) 600 mg tablet TAKE 1 TABLET BY MOUTH THREE TIMES A DAY 300 tablet 1 Active insulin glargine (LANTUS) 100 unit/mL (3 mL) pen for injectionIndica tions:Type 2 diabetes mellitus with hypoglycemia without coma, with long-term current use of insulin (HCC) Inject 24 Units under the skin nightly 15 mL 3 025 2025 Active insulin lispro (HumaLOG, ADMELOG) 100 unit/mL pen for injectionIndica tions:type 2 diabetes mellitus Inject 1-14 Units under the skin 3 (three) times a day with meals (2 units for every 25 mg/dL blood glucose greater than 150 mg/dL up to max 14 units) Refer to After Visit Summary for Sliding Scale Insulin Instructions. 12.6 mL 1 025 2024 Discontinued(S top Taking at Discharge) gabapentin (NEURONTIN) 600 mg tablet TAKE 1 TABLET BY MOUTH THREE TIMES A DAY 270 tablet 1 025 2024 Discontinued insulin glargine (LANTUS) 100 unit/mL (3 mL) pen for injectionIndica tions:Type 2 diabetes mellitus with hyperglycemia, with long-term current use of insulin (HCC) INJECT 28 UNITS UNDER THE SKIN NIGHTLY 15 mL 3 025 2024 Discontinued(R eorder) Active Problems Problem Noted Date Diagnosed Date Shortness of breath 09/28/2025 Assessment & Plan (10/14/2025 11:27 AM RANGE OPERATOR): Resolved. Will continue to monitor. Elevated brain natriuretic peptide (BNP) level 1 11/28/2024 Assessment & Plan (10/14/2025 11:27 AM RANGE OPERATOR): Will continue to monitor. Swelling improved. Pneumonia 09/28/2025 Assessment & Plan (10/14/2025 11:27 AM RANGE OPERATOR): Resolved. Will continue to monitor. Hyperkalemia 09/28/2025 Assessment & Plan (10/14/2025 11:27 AM RANGE OPERATOR): Will get updated labs. Will continue to monitor. CLOVIS (acute kidney injury) 09/28/2025 Assessment & Plan (10/14/2025 11:27 AM RANGE OPERATOR): Improving. Will continue to monitor. Will be [...] 01/09/2025 Assessment & Plan (10/14/2025 11:27 AM RANGE OPERATOR): SOB resolved. Lower leg swelling improving. Will [...] Lasix is not being given due to CLOVIS. Having lower leg swelling as well. No CP. Will get BNP to assess fluid status. 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 Continues to avoid [...] Future Assessment & Plan (11/27/2024 1:11 PM RANGE OPERATOR): Continue to monitor CMP, eGFR, and discussed [...] healthier, we can set up appointment with grubber/car installations supervisor. Have an active lifestyle, strive for 30 [...] healthier, we can set up appointment with grubber/car installations supervisor. Have an active lifestyle, strive for 30 [...] 10/20/2022 Assessment & Plan (10/20/2022 11:43 AM RANGE OPERATOR): Try to swallow with sips of water all dry foods Modified Barium swallow study Laryngeal spasm 10/20/2022 Assessment & Plan (10/20/2022 11:44 AM RANGE OPERATOR): Try to swallow with sips of water [...] Will hold furosemide for now due to CLOVIS. Monitor symptoms closely. Follow-up with cardiology and nephrology. Red flags reviewed. Assessment & Plan (11/27/2024 1:11 PM RANGE OPERATOR): Stable and well controlled. Will continue on [...] Future Assessment & Plan (11/27/2024 1:10 PM RANGE OPERATOR): Lipid panel order placed by another provider. [...] flags. Assessment & Plan (12/23/2020 2:16 PM RANGE OPERATOR): Lab Results Component Value Date CHOL 137 [...] 12/23/2020 Assessment & Plan (10/14/2025 11:27 AM RANGE OPERATOR): Encouraged heart healthy diet and lifestyle. Advised [...] weight. Assessment & Plan (11/27/2024 1:10 PM RANGE OPERATOR): Weight appropriate for patient. Assessment & Plan (08/26/2024 10:04 AM CDT): Encouraged heart healthy diet and lifestyle. Advised 150 min/week of aerobic exercise. Assessment & Plan (03/22/2021 10:10 AM CDT): Reviewed need to lose weight, reviewed health benefits. Reviewed recommendations for daily intake & activity 20-30 minutes/day. Discussed healthy diet and importance of regular physical activity. Assessment & Plan (12/23/2020 2:25 PM RANGE OPERATOR): Reviewed need to lose weight, reviewed health benefits. Reviewed recommendations for daily intake & activity 20-30 minutes/day. Discussed healthy diet and importance of regular physical activity. Has been exercising regularly. Prostate cancer 11/26/2020 Overview (11/26/2020): Added automatically from request for surgery [id number] Assessment & Plan (09/10/2025 11:05 AM CDT): [...] indicated. Assessment & Plan (12/23/2020 2:15 PM RANGE OPERATOR): Has surgery scheduled 01/04/21 w/Dr Evans. History of colonic polyps 10/29/2020 Overview (10/29/2020): Added automatically from request for surgery [id number] Need for influenza vaccination 09/22/2020 Assessment & Plan (09/10/2025 11:05 AM CDT): Flu vaccine given in office today. Orders: Flu Vaccine High Dose Tri PF 65y+ IM - Fluzone High Dose () Assessment & Plan (11/27/2024 1:09 PM RANGE OPERATOR): Flu vaccine given at appointment Assessment & Plan (09/22/2020 10:39 AM RANGE OPERATOR): Flu vaccine given today. Discussed possible tenderness/redness at injection site. Colon cancer screening 09/22/2020 Assessment & Plan (09/22/2020 10:38 AM RANGE OPERATOR): Refuses colonoscopy; aware that it is gold [...] monitor. Assessment & Plan (11/27/2024 1:09 PM RANGE OPERATOR): Neuropathy not well controlled. Will continue on Gabapentin. Referral placed to Neurology as well for additional relief and evaluation. Assessment & Plan (08/26/2024 10:03 AM CDT): Continue on Gabapentin. Feet are unchanged. Assessment & Plan (12/23/2020 2:15 PM RANGE OPERATOR): Improvement noted w/gabapentin. Denies any med SE. Assessment & Plan (09/22/2020 11:45 AM RANGE OPERATOR): +neuropathy. Aware to check feet. Discussed worsening if BG remains uncontrolled. Hx of colonic polyps 05/20/2020 Overview (05/20/2020): Added automatically from request for surgery [id number] Elevated PSA 05/10/2019 Assessment & Plan (12/23/2020 2:12 PM RANGE OPERATOR): Scheduled for prostate surgery 01/04/21 w/Dr Evans. Assessment & Plan (09/22/2020 11:46 AM RANGE OPERATOR): Has bx 09/30/20 w/Dr Evans at [facility]. MRI shows high suspicion for malignancy. Assessment & Plan (05/10/2019 9:33 AM CDT): PSA 02/11/19 PSA=8.94. Will repeat. Can be discussed w/Dr Galeana at [facility] for kidney stones also. Screening for [...] insulin Assessment & Plan (10/14/2025 11:27 AM RANGE OPERATOR): Blood sugar low at 68 despite eating [...] reviewed. Assessment & Plan (11/27/2024 1:09 PM RANGE OPERATOR): Still having elevated blood sugars even after increases Lantus to 28 units. Will restart Humalog with meals and continue to monitor. Lab Results Component Value Date HGBA1C 10.4 (H) 08/19/2024 HGBA1C 9.4 (H) 08/13/2023 HGBA1C 8.7 (H) 06/14/2023 Assessment & Plan (10/07/2024 11:35 AM RANGE OPERATOR): Blood sugar 312 in office. A1C [id number]. Lantus increased 28 U nightly. Will use CGM for blood sugar monitoring. Will recheck in 3 months. Assessment & Plan (08/20/2023 9:40 AM CDT): Instructed to resume glipizide, to take 2.5 mg twice daily. Continue basaglar 25 units nightly and lispro for bs >150. A1c not at goal. Will repeat labs in 3 months. Assessment & Plan (12/23/2020 2:13 PM RANGE OPERATOR): Lab Results Component Value Date HGBA1C 9.9 [...] currently. Assessment & Plan (12/23/2020 2:26 PM RANGE OPERATOR): No exacerbations. Denies SOB/cough. Assessment & Plan (04/06/2020 1:47 PM CDT): No recent exacerbation. Symptoms have been well controlled. Benign prostatic hyperplasia without urinary obs truction 04/29/2014 Assessment & Plan (09/10/2025 11:05 AM CDT): Stable and controlled. Will continue to monitor. Assessment & Plan (02/26/2025 8:28 AM CDT): Stable and controlled. Will continue to monitor. Assessment & Plan (12/23/2020 2:13 PM RANGE OPERATOR): Has prostate surgery scheduled for 01/04/21 w/Dr Evans. Hypogonadism in male 01/28/2014 Resolved Problems Problem Noted Date Diagnosed Date [...] 12/23/2020 Assessment & Plan (09/22/2020 10:39 AM RANGE OPERATOR): Pneumovax 23 vaccine given today. Discussed possible tenderness/redness at injection site. BMI 38.0-38.9,adult 09/22/2020 12/23/19 21 Assessment & Plan (09/22/2020 10:38 AM RANGE OPERATOR): Reviewed need to lose weight, reviewed health [...] evaluation. Assessment & Plan (12/23/2020 2:24 PM RANGE OPERATOR): Lab Results Component Value Date HGBA1C 9.9 [...] evaluation. Assessment & Plan (09/22/2020 11:48 AM RANGE OPERATOR): Refuses insulin at this time. Lab Results Component Value Date HGBA1C 11.5 % 09/22/2020 HGBA1C 10.8 (H) 06/10/2020 HGBA1C 10.6 10/07/2019 Hand out for glycemic index given to Mr & Mrs Gleason. Discussed diet. Needs to greatly change diet & increase activity. Discussed poor healing after prostate bx d/t elevated BG/A1c. Reviewed end-organ damage. Website/info for ADA given to Mr Mrs Gleason to review DM education, tips, help. Declines repeat DM educator. Stressed need for great diet/activity changes at this time. Declines insulin/injections at this time. Discussed need for additional meds if he cannot get under control with increased activity/improved diet. Hyperlipidemia 04/06/2020 12/23/2020 Assessment & Plan (09/22/2020 11:46 AM RANGE OPERATOR): Poor diet habits. We will check labs [...] (05/21/2019): Added automatically from request for surgery [id number] Refused influenza vaccine 05/10/2019 Obesity (BMI 30-39.9) [...] flags; what would warrant more emergent evaluation. Encounters Date Type Department Care Team Description 11/02/2025 2:10 PM RANGE OPERATOR Lab [facility] [address] [place] [address] Arrived 10/30/2025 12:30 PM RANGE OPERATOR Office Visit [facility] at [address] [place] [phone] Mignon Burt MD Chronic diastolic congestive heart failure (HCC) (Primary Dx); Class 2 severe obesity due to excess calories with serious comorbidity and body mass index (BMI) of 37.0 to 37.9 in adult; DELPHINE (obstructive sleep apnea); Chronic kidney disease (CKD), stage IV (severe) (HCC); On continuous oral anticoagulation; Paroxysmal atrial fibrillation (HCC); Essential hypertension 10/29/2025 10:00 AM RANGE OPERATOR Office Visit [facility] [address] [facility] [address] [place] [phone] Albina Adame MD DELPHINE (obstructive sleep apnea) (Primary Dx); Hypersomnia with sleep apnea; Severe obesity (BMI 35.0-35.9 with comorbidity) (HCC) 10/27/2025 Telephone [facility] [address] [phone] Ciera Aldridge NP 10/23/2025 11:35 AM RANGE OPERATOR Lab [facility] [address] [place] [address] 10/19/2025 9:05 AM RANGE OPERATOR Lab [facility] [address] [place] [address] CLOVIS (acute kidney injury) 10/19/2025 8:50 AM RANGE OPERATOR Lab [facility] [address] [place] [address] 10/14/2025 10:00 AM RANGE OPERATOR Office Visit [facility] [address] [phone] Ciera Aldridge NP Type 2 diabetes mellitus with hypoglycemia without coma, with long-term current use of insulin ([facility]) (Primary Dx); Hospital discharge follow-up; CLOVIS (acute kidney injury); Hyperkalemia; Pneumonia due to infectious organism, unspecified laterality, unspecified part of lung; Shortness of breath; Elevated brain natriuretic peptide (BNP) level; Congestive heart failure, unspecified HF chronicity, unspecified heart failure type ([facility]); Type 2 diabetes mellitus with stage 4 chronic kidney disease, with long-term current use of insulin ([facility]); Class 2 severe obesity with serious comorbidity and body mass index (BMI) of 36.0 to 36.9 in adult, unspecified obesity type 10/12/2025 Telephone [facility] [address] [phone] Luis Carlos Calzada MD 09/30/2025 12:30 PM RANGE OPERATOR - 09/30/2025 1:30 PM RANGE OPERATOR Surgery [facility] Operating Room [address] [place] [address] Oscar Alcazar MD CYSTOSCOPY PLACEMENT URETERAL STENT-BILATERAL. LAZAR CATHETER PLACEMENT, RETROGRADE PYELOGRAM 09/30/2025 12:10 PM RANGE OPERATOR Anesthesia Event [facility] Operating Room [address] [place] [address] Farhat Cabrera DO Murphy, Shelby Morgan, CRNA 09/28/2025 5:18 PM RANGE OPERATOR - 10/06/2025 6:10 PM RANGE OPERATOR Hospital Encounter [facility] Acute Medicine [address] [place] [address] Blanche Oakley MD Sargsyan, Narine, MD Nikolic, Jelena, MD Shortness of breath (Primary Dx); CLOVIS (acute kidney injury); Pneumonia of left lung due to infectious organism, unspecified part of lung; Hyperkalemia Discharge Disposition: Discharge to home or self care 09/10/2025 10:30 AM CDT Office Visit [facility] [address] [place] [address] Ciera Aldridge NP Medicare annual wellness visit, subsequent (Primary Dx); Congestive heart failure, unspecified HF chronicity, unspecified heart failure type (HCC); Type 2 diabetes mellitus without complication, with long-term current use of insulin (HCC); Diabetic polyneuropathy associated with type 2 diabetes mellitus (HCC); Prostate cancer (HCC); Dyslipidemia associated with type 2 diabetes mellitus (HCC); Acute on chronic diastolic congestive heart failure (HCC); Type 2 diabetes mellitus with stage 4 chronic kidney disease, with long-term current use of insulin (HCC); Hypertension associated with diabetes (HCC); Acquired hypothyroidism; DELPHINE (obstructive sleep apnea); Other emphysema; Benign prostatic hyperplasia without urinary obstruction; Need for influenza vaccination; Class 2 severe obesity with serious comorbidity and body mass index (BMI) of 35.0 to 35.9 in adult, unspecified obesity type 08/31/2025 Results Follow-Up [facility] [address] [place] [address] Ciera Aldridge NP Lipid panel, Comprehensive metabolic panel, CBC with auto differential, Additional followed-up results: 3 08/28/2025 11:44 AM CDT - 08/28/2025 11:59 PM CDT Hospital Encounter [facility] [address] [place] [address] 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); Type 2 diabetes mellitus with hyperglycemia, with long-term current use of insulin (HCC); Type 2 diabetes mellitus with hypoglycemia without coma, with long-term current use of insulin (HCC); Type 2 diabetes mellitus with stage 4 chronic kidney disease, with long-term current use of insulin (HCC); Dyslipidemia associated with type 2 diabetes mellitus (HCC) Discharge Disposition: Discharge to home or self care 08/28/2025 9:35 AM CDT [facility] [address] [place] [address] Type 2 diabetes mellitus with hypoglycemia without coma, with long-term current use of insulin (HCC); Type 2 diabetes mellitus with stage 4 chronic kidney disease, with long-term current use of insulin (HCC); Dyslipidemia associated with type 2 diabetes mellitus (HCC); 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); Type 2 diabetes mellitus with hyperglycemia, with long-term current use of insulin (HCC) 08/28/2025 Orders Only [facility] [address] [address] Ciera Aldridge NP 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) (Primary Dx); Type 2 diabetes mellitus with hyperglycemia, with long-term current use of insulin (HCC); Type 2 diabetes mellitus with hypoglycemia without coma, with long-term current use of insulin (HCC); Type 2 diabetes mellitus with stage 4 chronic kidney disease, with long-term current use of insulin (HCC); Dyslipidemia associated with type 2 diabetes mellitus (HCC) 08/18/2025 8:45 AM CDT Office Visit [facility] [address] [place] [address] [place] [phone] Albina Adame MD DELPHINE (obstructive sleep apnea) (Primary Dx); Hypersomnia with sleep apnea; Severe obesity (BMI 35.0-35.9 with comorbidity) (HCC) 08/17/2025 9:00 AM CDT Office Visit [facility] [address] [place] [address] [address] [address] Gordo King MD Diabetic polyneuropathy associated with type 2 diabetes mellitus (HCC) (Primary Dx) 08/13/2025 Telephone [facility] [address] [address] Luis Carlos Calzada MD Medical Question/Miscellaneou s 08/13/2025 Telephone [facility] [address] [address] Ciera Aldridge, UROGYNECOLOGY PHYSICIAN 08/04/2025 Telephone [facility] [address] [address] Luis Carlos Calzada MD Med Refill from Last 3 Months Immunizations Immunization Administration Dates Next Due Influenza, Quadrivalent, Hig h Dose, Preservative Free, Intrr 11/18/2021,09/22/2020 Influenza, Quadrivalent, Spl it, Preservative Free, Intramuscular 09/02/2015 Influenza, Split 03/16/2014 Influenza, Trivalent, High D ose, Split, Preservative Free, Intramuscular 09/10/2025,11/27/2024 Influenza, Unspecified 09/10/2025(Deferr ed: Patient Refused),08/26/2024(Deferred: Patient Refused),08/20/2023(Deferred: Patient Refused),07/13/2023(Deferred: Patient Refused),07/13/2023(Deferred: Patient Refused),12/13/2022(Deferred: Patient Refused),08/12/2022(Deferred: Patient Refused),07/13/2022(Deferred: Patient Refused),11/12/2019(Deferred: Patient Refused),05/06/2019(Deferred: Patient Refused),11/12/2018(Deferred: Patient Refused),08/12/2018(Deferred: Patient Refused),11/19/2017(Deferred: Patient Refused),11/12/2017(Deferred: Patient Refused),11/12/2016(Deferred: Patient Refused) Pfizer SARS-CoV-2 Monovalent Vaccination (12+ Yrs) PURPLE 06/16/2022,09/23/2021,09/23/2021 Pneumococcal Conjugate PCV 13 11/18/2021 Pneumococcal Polysaccharide PPV23 09/22/2020 Surgical History Surgery Date Site/Laterality Comments OTHER SURGICAL HISTORY 11/12/2013 - 11/11/2014 Right kidney stone: REmoval of kidney stone KNEE ARTHROPLASTY Bilateral Knee replacement JOINT REPLACEMENT left knee 2017 JOINT REPLACEMENT right knee 2018 SINUS SURGERY ROTATOR CUFF REPAIR Right COLONOSCOPY 11/12/2009 - 11/11/2010 more than ten years ago, unable to locate report PROSTATE SURGERY 11/12/2020 - 11/11/2021 PROSTATE SURGERY TOE AMPUTATION 03/12/2023 - 04/11/2023 Left left great toe CATARACT EXTRACTION Left eye 04/17/23 and Right eye on 05/29/23 CARDIAC CATHETERIZATION 01/13/2025 N/A Procedure: RIGHT HEART CATHETERIZATION [id number]; Surgeon: Mignon Burt MD; Location: [facility] CARDIAC MOBILE DISC [place]OC[place]; Service: Cardiovascular; Laterality: N/A; Medical History Medical History Date Comments Chronic obstructive pulmonary disease COPD Type 2 diabetes mellitus Sleep apnea Does not wear t he mask Vertigo Arthritis Bilateral kidney stones 05/21/2019 Added au tomatically from request for surgery [id number] Atrial fibrillation (HCC) Cataract Cancer (HCC) Prostate Calculus of kidney 01/28/2014 Family History Medical History Relation Name Comments Other Father asbestosis; Cau se of : asbestosis Cancer Father's Brother 1 [place] Liz Cancer Father's Brother 2 [place] Novi Other Mother Alive and well; Relation Name Status Comments Father Father's Brother 1 [place] Novi Father's Brother 2 [place] Liz Alive Mother Social History Tobacco Use Types Packs/Day Years Used Date Smoking Tobacco: Never Smokeless Tobacco: Never Tobacco Cessation:Counseling Given: Not Answered Alcohol Use Standard Drinks/Week Comments Never 0 [...] often do you attend chur ch or caodaism services? Never 01/20/2025 Do you belong to any clubs o r organizations such as muslim groups, unions, fraternal or athletic groups, or [...] place to sleep or slept in a intermediate (including now)? No 03/26/2023 Housing Stability Vital [...] time in the past 12 m [facility], were you homeless or living in a intermediate (including now)? No 01/20/2025 Social Connection and Isolation Panel Answer Date Recorded In a typical week, how many times do you talk on the phone with family, friends, or neighbors? Three times a week 10/15/2025 How often do you get togethe r with friends or relatives? Three times a week 10/15/2025 How often do you attend chur ch or caodaism services? Never 10/15/2025 Do you belong to any clubs o r organizations such as muslim groups, unions, fraternal or athletic groups, or [...] time in the past 12 m [facility], were you homeless or living in a intermediate (including now)? No 10/15/2025 [facility] Utilities Answer Date Recorded In the past [...] on file Legal Sex Male 11:50 PM RANGE OPERATOR Gender Identity Male 12/11/2022 7:20 PM RANGE OPERATOR Sexual Orientation Straight 05/18/2019 6: 29 PM CDT Last Filed Vital Signs Vital Sign Reading Time Taken Comments Blood Pressure 118/72 10/30/2025 12:48 PM RANGE OPERATOR Pulse 83 10/30/2025 12:48 PM RANGE OPERATOR Temperature 36.5 C (97.7 F) 10/14/2025 10:31 AM RANGE OPERATOR Respiratory Rate 16 10/14/2025 10:31 AM RANGE OPERATOR Oxygen Saturation 95% 10/29/2025 10:03 AM RANGE OPERATOR Inhaled Oxygen Concentration - - Weight 106.1 kg (234 lb) 10/30/2025 12:48 PM RANGE OPERATOR Height 167.6 cm (5' 6) 10/30/2025 12:48 PM RANGE OPERATOR Body Mass Index 37.77 10/30/2025 12:48 PM RANGE OPERATOR Plan of Treatment Health Maintenance Due Date Last Done Comments Hepatitis C Screening 1945 Hepatitis B Screening 1965 Zoster Vaccine (1 of 2) 1997 Dilated Eye Exam 09/30/2023 09/30/2021, , 05/06/2018, Additional history exists Covid-19 Vaccine (2024- 6 season) 2025 06/16/2022, 06/15/2022, 09/23/2021, Additional history exists Foot Exam 11/27/2025 11/27/2024, 08/12, 03/06/2023, Additional history exists Hemoglobin A1C 02/26/2026 08/28/2025, 05/0 06/2025, 01/12/2025, Additional history exists Albumin Creatinine Ratio, Urine 08/28/2026 08/28/2025, 08/19/2024, 12/13/2022, Additional history exists Lipid Panel 08/28/2026 08/28/2025, 03/0 01/2025, 11/27/2024, Additional history exists Well Visit 65+ 09/10/2026 09/10/2025, 08/12, 08/20/2023, Additional history exists Depression Screening 10/14/2026 10/14/2025, 09/10/2025, 02/26/2025, Additional history exists Fall Risk Assessment 10/14/2026 10/14/2025, 10/06/2025, 09/10/2025, Additional history exists eGFR 11/02/2026 11/02/2025, 10/12, 10/19/2025, Additional history exists Colon Cancer Screening-CT Colonography Discontinued 11/19/2020 Colon Cancer Screening-Colonoscopy Discontinued 11/19/2020 Colon Cancer Screening-DNA Stool Discontinued 11/19/19, 10/03/2020 Colon Cancer Screening-FIT Discontinued 11/19/2020, Colon Cancer Screening-FOBT Discontinued 11/19/2020, 12/03/2019 Colon Cancer Screening-Sigmoidoscopy Discontinued 11/19/2020 Colorectal Cancer Screening Discontinued Pneumococcal vaccine 65+ Discontinued 11/18/2021, 09/12 Influenza Vaccine Completed 09/10/2025, , 11/18/2021, Additional history exists DTaP/Tdap/Td Vaccine Discontinued Goals Goal Patient Goal Type Associated Problems Recent Progress Patient-Stated? Author HF Goal - Patient's CP status will be stable with increased knowledge of self-care management ACO Care Management On track(10/22 3:59 PM RANGE OPERATOR) No Dianna Stanford RN Note: Problem: Heart Failure Interventions: - [...] ACO Care Management On track(10/22 3:58 PM RANGE OPERATOR) No Zena Pandya RN Note: Problem: Potential for medical complications [...] ACO Care Management On track(10/22 3:58 PM RANGE OPERATOR) Zena Macias RN Note: Problem: At Risk [...] ACO Care Management On track(10/22 3:58 PM RANGE OPERATOR) Zena Macias RN Note: Problem: Inadequate assistance [...] SW if appropriate and patient is agreeable. Medical Devices Implanted Type Area Seo Professional Device Identifier Shelf Expiration Date Model / Serial / Lot Cement Bone Smartset Gentamicin 40 Gm High Viscosity - [id number] Implanted:Qty: 1 on 12/17/2017 by Refugio Haas MD at [facility] Right: Knee [employer] 05/11/2019 [id number] / / [id number] Cement Bone Smartset Gentamicin 40 Gm High Viscosity - [id number] Implanted:Qty: 1 on 12/17/2017 by Refugio Haas MD at [facility] Right: Knee [employer] 05/11/2019 [id number] / / [id number] Component Femoral Attune 6 Knee Right Cemented Posterior Stabilize Sterile - Sn/A - [id number] Implanted:Qty: 1 on 12/17/2017 by Refugio Haas MD at [facility] Right: Knee [employer] 09/11/2027 [id number] / N/A / [id number] Dome Patellar Attune Aox H38 Mm Knee Cemented Medialize Sterile - Sn/A - [id number] Implanted:Qty: 1 on 12/17/2017 by Refugio Haas MD at [facility] Right: Patella [employer] 07/12/2022 [id number] / N/A / [id number] Attune Knee System, Tibial Base Fixed Bearing Implanted:Qty: 1 on 12/17/2017 by Refugio Haas MD at [facility] Right: Patella [employer] 10/11/2027 1506-70-007 / N/A / [id number] Description:Tibial Base 1506 -70-007 Insert Tibial Attune Aox 6 H12 Mm Knee Posterior Stabilize Fix Bearing Sterile - Sn/A - [id number] Implanted:Qty: 1 on 12/17/2017 by Refugio Haas MD at [facility] Right: Knee [employer] 05/11/2018 [id number] / N/A / [id number] [employer] Catherine Contour Vl 6fr 22-30cm Large Inner Lumen Low Profile Bladder Steffen Latex Free [id number] - [id number] Implanted:Qty: 1 on 09/30/2025 by Oscar Alcazar MD at [facility] Right: Ureter [employer] Catherine 01/27/2028 [id number] / / [id number] [employer] Catherine Contour Vl 6fr 22-30cm Large Inner Lumen Low Profile Bladder Steffen Latex Free [id number] - [id number] Implanted:Qty: 1 on 09/30/2025 by Oscar Alcazar MD at [facility] Left: Ureter [employer] 01/07/2028 [id number] / / [id number] Explanted Type Area Seo Professional Device Identifier Shelf Expiration Date Model / Serial / Lot Pin Fixation Attune Thread Pack Head Headless Disposable - [id number] Explanted:Qty: 1 on 12/17/2017 at [facility] Right: Knee [employer] [id number] / / [employer] Catherine 180-222 Contour 6fr 24cm Large Inner Lumen Low Profile Bladder Steffen Taper Latex Free - [id number] Implanted:Qty: 1 on 07/22/2019 by Dez Evans MD at [facility] Explanted:Qty: 1 on 08/04/2019 by Dez Evans MD Right: Kidney [employer] Catherine 04/21/2022 180-222 / / [id number] [employer] Catherine 180-222 Contour 6fr 24cm Large Inner Lumen Low Profile Bladder Steffen Taper Latex Free - [id number] Implanted:Qty: 1 on 07/22/2019 by Dez Evans MD at [facility] Explanted:Qty: 1 on 08/04/2019 by Dez Evans MD Left: Kidney [employer] Catherine 04/23/2022 180-222 / / [id number] [employer] Catherine 180-222 Contour 6fr 24cm Large Inner Lumen Low Profile Bladder Steffen Taper Latex Free - [id number] Implanted:Qty: 1 on 12/01/2021 by Dez Evans MD at [facility] Explanted:Qty: 1 on 01/11/2022 Right: Ureter [employer] 09/05/2024 180-222 / / [id number] [employer] Catherine 180-222 Contour 6fr 24cm Large Inner Lumen Low Profile Bladder Steffen Taper Latex Free - [id number] Implanted:Qty: 1 on 12/01/2021 by Dez Evans MD at [facility] Explanted:Qty: 1 on 01/12/2022 Left: Ureter [employer] Catherine 09/05/2024 180-222 / / [id number] [employer] Catherine 180-222 Contour 6fr 24cm Large Inner Lumen Low Profile Bladder Steffen Taper Latex Free - [id number] Implanted:Qty: 1 on 01/12/2022 by Dez Evans MD at [facility] Explanted:Qty: 1 on 01/20/2022 Left: Ureter [employer] Catherine 09/05/2024 180-222 / / [id number] [employer] Catherine 180-222 Contour 6fr 24cm Large Inner Lumen Low Profile Bladder Steffen Taper Latex Free - [id number] Implanted:Qty: 1 on 01/12/2022 by Dez Evans MD at [facility] Explanted:Qty: 1 on 01/20/2022 Right: Ureter [employer] Catherine 10/02/2024 180-222 / / [id number] Procedures Procedure Name Priority Date/Time Associated Diagnosis Comments EGFR Routine 11/02/2025 2:24 PM RANGE OPERATOR RENAL FUNCTION PANEL Routine 11/02/2025 2:24 PM RANGE OPERATOR EGFR Routine 10/23/2025 11:56 AM RANGE OPERATOR RENAL FUNCTION PANEL Routine 10/23/2025 11:56 AM RANGE OPERATOR EGFR Routine 10/19/2025 8:52 AM RANGE OPERATOR DIFFERENTIAL AUTO Routine 10/19/2025 8:5 2 AM RANGE OPERATOR PRO B-TYPE NATRIURETIC PEPTIDE Routine 10/19/2025 8:52 AM RANGE OPERATOR CBC WITH AUTO DIFFERENTIAL Routine 10/19/2025 8:52 AM RANGE OPERATOR RENAL FUNCTION PANEL Routine 10/19/2025 8:52 AM RANGE OPERATOR EGFR Routine 10/19/2025 8:50 AM RANGE OPERATOR CLOVIS (acute kidney injury) BASIC METABOLIC PANEL Routine 10/19/2025 8:50 AM RANGE OPERATOR CLOVIS (acute kidney injury) POCT GLUCOSE Routine 10/14/2025 10:57 AM RANGE OPERATOR Type 2 diabetes mellitus with hypoglycemia without coma, with long-term current use of insulin (HCC) POCT GLUCOSE DEVICE Routine 10/06/2025 5 :04 PM RANGE OPERATOR POCT GLUCOSE DEVICE Routine 10/06/2025 1 1:35 AM RANGE OPERATOR POCT GLUCOSE DEVICE Routine 10/06/2025 7 :47 AM RANGE OPERATOR EGFR Routine 10/06/2025 6:47 AM RANGE OPERATOR RENAL FUNCTION PANEL Routine 10/06/2025 6:47 AM RANGE OPERATOR CBC WITHOUT DIFFERENTIAL Routine 10/06/2025 6:47 AM RANGE OPERATOR POCT GLUCOSE DEVICE Routine 10/06/2025 3 :09 AM RANGE OPERATOR POCT GLUCOSE DEVICE Routine 10/05/2025 8 :59 PM RANGE OPERATOR POCT GLUCOSE DEVICE Routine 10/05/2025 4 :23 PM RANGE OPERATOR POCT GLUCOSE DEVICE Routine 10/05/2025 1 1:01 AM RANGE OPERATOR POCT GLUCOSE DEVICE Routine 10/05/2025 7 :06 AM RANGE OPERATOR EGFR Routine 10/05/2025 3:18 AM RANGE OPERATOR RENAL FUNCTION PANEL Routine 10/05/2025 3:18 AM RANGE OPERATOR CBC WITHOUT DIFFERENTIAL Routine 10/05/2025 3:18 AM RANGE OPERATOR POCT GLUCOSE DEVICE Routine 10/05/2025 2 :47 AM RANGE OPERATOR POCT GLUCOSE DEVICE Routine 10/04/2025 8 :44 PM RANGE OPERATOR POCT GLUCOSE DEVICE Routine 10/04/2025 4 :28 PM RANGE OPERATOR POCT GLUCOSE DEVICE Routine 10/04/2025 1 1:20 AM RANGE OPERATOR POCT GLUCOSE DEVICE Routine 10/04/2025 7 :09 AM RANGE OPERATOR EGFR Routine 10/04/2025 2:59 AM RANGE OPERATOR RENAL FUNCTION PANEL Routine 10/04/2025 2:59 AM RANGE OPERATOR CBC WITHOUT DIFFERENTIAL Routine 10/04/2025 2:59 AM RANGE OPERATOR POCT GLUCOSE DEVICE Routine 10/04/2025 2 :18 AM RANGE OPERATOR POCT GLUCOSE DEVICE Routine 10/03/2025 7 :59 PM RANGE OPERATOR POCT GLUCOSE DEVICE Routine 10/03/2025 4 :35 PM RANGE OPERATOR POCT GLUCOSE DEVICE Routine 10/03/2025 1 1:13 AM RANGE OPERATOR POCT GLUCOSE DEVICE Routine 10/03/2025 7 :14 AM RANGE OPERATOR EGFR Routine 10/03/2025 3:37 AM RANGE OPERATOR RENAL FUNCTION PANEL Routine 10/03/2025 3:37 AM RANGE OPERATOR CBC WITHOUT DIFFERENTIAL Routine 10/03/2025 3:37 AM RANGE OPERATOR POCT GLUCOSE DEVICE Routine 10/03/2025 3 :10 AM RANGE OPERATOR POCT GLUCOSE DEVICE Routine 10/02/2025 8 :17 PM RANGE OPERATOR POCT GLUCOSE DEVICE Routine 10/02/2025 4 :23 PM RANGE OPERATOR CLINICAL PATHOLOGY REPORT Routine 10/02/2025 12:18 PM RANGE OPERATOR PROTEIN ELECTROPHORESIS, WITH REFLEX, SERUM Routine 10/02/2025 12:[address] ABDOMEN PELVIS WO CONTRAST IP Routine 10/02/2025 11:48 AM RANGE OPERATOR URINALYSIS, MICROSCOPIC ONLY Routine 10/02/2025 11:30 AM RANGE OPERATOR SODIUM, URINE, RANDOM Routine 10/02/2025 11:30 AM RANGE OPERATOR URINE CULTURE Routine 10/02/2025 11:30 AM RANGE OPERATOR URINALYSIS AND REFLEX TO MICROSCOPIC AND CULTURE Routine 10/02/2025 11:30 AM RANGE OPERATOR POCT GLUCOSE DEVICE Routine 10/02/2025 1 1:21 AM RANGE OPERATOR US SCROTUM W COMPLETE DOPPLER (C) IP Routine 10/02/2025 8:41 AM RANGE OPERATOR POCT GLUCOSE DEVICE Routine 10/02/2025 7 :23 AM RANGE OPERATOR ERYTHROCYTE SEDIMENTATION RATE Routine 10/02/2025 3:53 AM RANGE OPERATOR C3 COMPLEMENT Routine 10/02/2025 3:53 AM RANGE OPERATOR EGFR Routine 10/02/2025 3:53 AM RANGE OPERATOR RENAL FUNCTION PANEL Routine 10/02/2025 3:53 AM RANGE OPERATOR CBC WITHOUT DIFFERENTIAL Routine 10/02/2025 3:53 AM RANGE OPERATOR POCT GLUCOSE DEVICE Routine 10/02/2025 2 :00 AM RANGE OPERATOR POCT GLUCOSE DEVICE Routine 10/01/2025 7 :[address] CHEST WO CONTRAST IP Routine 10/01/2025 4:52 PM RANGE OPERATOR POCT GLUCOSE DEVICE Routine 10/01/2025 3 :57 PM RANGE OPERATOR POCT GLUCOSE DEVICE Routine 10/01/2025 1 1:29 AM RANGE OPERATOR POCT GLUCOSE DEVICE Routine 10/01/2025 7 :19 AM RANGE OPERATOR PSA DIAGNOSTIC Routine 10/01/2025 3:47 AM RANGE OPERATOR EGFR Routine 10/01/2025 3:47 AM RANGE OPERATOR PHOSPHORUS Routine 10/01/2025 3:47 AM RANGE OPERATOR COMPREHENSIVE METABOLIC PANEL Routine 10/01/2025 3:47 AM RANGE OPERATOR CBC WITHOUT DIFFERENTIAL Routine 10/01/2025 3:47 AM RANGE OPERATOR PRO B-TYPE NATRIURETIC PEPTIDE Routine 10/01/2025 3:47 AM RANGE OPERATOR POCT GLUCOSE DEVICE Routine 10/01/2025 3 :10 AM RANGE OPERATOR POCT GLUCOSE DEVICE Routine 09/30/2025 7 :54 PM RANGE OPERATOR POCT GLUCOSE DEVICE Routine 09/30/2025 5 :05 PM RANGE OPERATOR POCT GLUCOSE DEVICE Routine 09/30/2025 1 :07 PM RANGE OPERATOR FL FLUOROSCOPY < 1 HOUR IP Routine 09/30/2025 12:50 PM RANGE OPERATOR URINE CULTURE Routine 09/30/2025 12:36 PM RANGE OPERATOR [place] AN ELECTIVE SUPRAGLOTTIC AIRWAY Routine 09/30/2025 12:16 PM RANGE OPERATOR CYSTOSCOPY PLACEMENT URETERAL STENT 09/30/2025 12:10 PM RANGE OPERATOR BILATERAL URETERAL STONES POCT GLUCOSE DEVICE Routine 09/30/2025 1 1:32 AM RANGE OPERATOR POCT GLUCOSE DEVICE Routine 09/30/2025 8 :04 AM RANGE OPERATOR EGFR Routine 09/30/2025 3:56 AM RANGE OPERATOR PHOSPHORUS Routine 09/30/2025 3:56 AM RANGE OPERATOR COMPREHENSIVE METABOLIC PANEL Routine 09/30/2025 3:56 AM RANGE OPERATOR CBC WITHOUT DIFFERENTIAL Routine 09/30/2025 3:56 AM RANGE OPERATOR PRO B-TYPE NATRIURETIC PEPTIDE Routine 09/30/2025 3:56 AM RANGE OPERATOR POCT GLUCOSE DEVICE Routine 09/30/2025 2 :58 AM RANGE OPERATOR POCT GLUCOSE DEVICE Routine 09/29/2025 7 :59 PM RANGE OPERATOR POCT GLUCOSE DEVICE Routine 09/29/2025 4 :40 PM RANGE OPERATOR URINALYSIS, MICROSCOPIC ONLY Routine 09/29/2025 4:26 PM RANGE OPERATOR SODIUM, URINE, RANDOM Routine 09/29/2025 4:26 PM RANGE OPERATOR URINALYSIS AND REFLEX TO MICROSCOPIC AND CULTURE Routine 09/29/2025 4:26 PM RANGE OPERATOR TRANSTHORACIC ECHO (TTE) LIMITED/FOLLOW UP W LTD DOPPLER/CF WO CONTRAST Routine 09/29/2025 1:21 PM RANGE OPERATOR POCT GLUCOSE DEVICE Routine 09/29/2025 1 1:[address] ABDOMEN PELVIS WO CONTRAST IP Routine 09/29/2025 11:09 AM RANGE OPERATOR US KIDNEY COMPLETE IP Routine 09/29/2025 9: 52 AM RANGE OPERATOR XR ABDOMEN AP 1 VIEW IP Routine 09/29/2025 9:19 AM RANGE OPERATOR POCT GLUCOSE DEVICE Routine 09/29/2025 7 :32 AM RANGE OPERATOR EGFR Routine 09/29/2025 4:04 AM RANGE OPERATOR COMPREHENSIVE METABOLIC PANEL Routine 09/29/2025 4:04 AM RANGE OPERATOR CBC WITHOUT DIFFERENTIAL Routine 09/29/2025 4:04 AM RANGE OPERATOR POCT GLUCOSE DEVICE Routine 09/29/2025 2 :33 AM RANGE OPERATOR PRO B-TYPE NATRIURETIC PEPTIDE Routine 09/28/2025 9:49 PM RANGE OPERATOR TROPONIN T HIGH-SENSITIVITY 6-HOUR Timed 09/28/2025 9:49 PM RANGE OPERATOR MRSA ONLY (STAPHYLOCOCCUS AUREUS) PCR Routine 09/28/2025 9:35 PM RANGE OPERATOR POCT GLUCOSE DEVICE Routine 09/28/2025 8 :12 PM RANGE OPERATOR PROCALCITONIN Routine 09/28/2025 7:53 PM RANGE OPERATOR TROPONIN T HIGH-SENSITIVITY 4-HR Timed 09/28/2025 7:47 PM RANGE OPERATOR UREA NITROGEN, URINE, RANDOM Routine 09/28/2025 6:18 PM RANGE OPERATOR CREATININE, URINE, RANDOM Routine 09/28/2025 6:18 PM RANGE OPERATOR URINALYSIS, MICROSCOPIC ONLY STAT 09/28/2025 6:18 PM RANGE OPERATOR SODIUM, URINE, RANDOM Routine 09/28/2025 6:18 PM RANGE OPERATOR LEGIONELLA ANTIGEN, URINE Routine 09/28/2025 6:18 PM RANGE OPERATOR STREP PNEUMONIAE AG, URINE Routine 09/28/2025 6:18 PM RANGE OPERATOR URINALYSIS AND REFLEX TO MICROSCOPIC AND CULTURE STAT 09/28/2025 6:18 PM RANGE OPERATOR ED CRITICAL CARE Routine 09/28/2025 5:50 PM RANGE OPERATOR SEPSIS LACTATE WITH REFLEX STAT 09/28/2025 5:48 PM RANGE OPERATOR TROPONIN T HIGH-SENSITIVITY 2-HOUR Timed 09/28/2025 5:48 PM RANGE OPERATOR BLOOD CULTURE Routine 09/28/2025 5:48 PM RANGE OPERATOR BLOOD CULTURE Routine 09/28/2025 5:48 PM RANGE OPERATOR XR CHEST PA LATERAL 2 VIEWS ED 09/28/2025 4:17 PM RANGE OPERATOR EGFR STAT 09/28/2025 4:04 PM RANGE OPERATOR DIFFERENTIAL AUTO STAT 09/28/2025 4:0 4 PM RANGE OPERATOR PRO B-TYPE NATRIURETIC PEPTIDE STAT 09/28/2025 4:04 PM RANGE OPERATOR TROPONIN T HIGH-SENSITIVITY SERIES (BASELINE, 2HR, 4HR, 6HR) STAT 09/28/2025 4:04 PM RANGE OPERATOR COMPREHENSIVE METABOLIC PANEL STAT 09/28/2025 4:04 PM RANGE OPERATOR CBC WITH AUTO DIFFERENTIAL STAT 09/28/2025 4:04 PM RANGE OPERATOR POCT GLUCOSE DEVICE Routine 09/28/2025 4 :03 PM RANGE OPERATOR ECG 12-LEAD STAT 09/28/2025 3:51 PM RANGE OPERATOR ALBUMIN CREATININE RATIO, URINE Routine 08/28/2025 11:44 AM CDT 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) Type 2 diabetes mellitus with hyperglycemia, with long-term current use of insulin (HCC) Type 2 diabetes mellitus with hypoglycemia without coma, with long-term current use of insulin (HCC) Type 2 diabetes mellitus with stage 4 chronic kidney disease, with long-term current use of insulin (HCC) Dyslipidemia associated with type 2 diabetes mellitus (HCC) EGFR Routine 08/28/2025 9:59 AM CDT 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) Type 2 diabetes mellitus with hyperglycemia, with long-term current use of insulin (HCC) Type 2 diabetes mellitus with hypoglycemia without coma, with long-term current use of insulin (HCC) Type 2 diabetes mellitus with stage 4 chronic kidney disease, with long-term current use of insulin (HCC) Dyslipidemia associated with type 2 diabetes mellitus (HCC) DIFFERENTIAL AUTO Routine 08/28/2025 9:5 9 AM CDT 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) Type 2 diabetes mellitus with hyperglycemia, with long-term current use of insulin (HCC) Type 2 diabetes mellitus with hypoglycemia without coma, with long-term current use of insulin (HCC) Type 2 diabetes mellitus with stage 4 chronic kidney disease, with long-term current use of insulin (HCC) Dyslipidemia associated with type 2 diabetes mellitus (HCC) HEMOGLOBIN A1C Routine 08/28/2025 9:59 AM CDT 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) Type 2 diabetes mellitus with hyperglycemia, with long-term current use of insulin (HCC) Type 2 diabetes mellitus with hypoglycemia without coma, with long-term current use of insulin (HCC) Type 2 diabetes mellitus with stage 4 chronic kidney disease, with long-term current use of insulin (HCC) Dyslipidemia associated with type 2 diabetes mellitus (HCC) CBC WITH AUTO DIFFERENTIAL Routine 08/28/2025 9:59 AM CDT 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) Type 2 diabetes mellitus with hyperglycemia, with long-term current use of insulin (HCC) Type 2 diabetes mellitus with hypoglycemia without coma, with long-term current use of insulin (HCC) Type 2 diabetes mellitus with stage 4 chronic kidney disease, with long-term current use of insulin (HCC) Dyslipidemia associated with type 2 diabetes mellitus (HCC) COMPREHENSIVE METABOLIC PANEL Routine 08/28/2025 9:59 AM CDT 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) Type 2 diabetes mellitus with hyperglycemia, with long-term current use of insulin (HCC) Type 2 diabetes mellitus with hypoglycemia without coma, with long-term current use of insulin (HCC) Type 2 diabetes mellitus with stage 4 chronic kidney disease, with long-term current use of insulin (HCC) Dyslipidemia associated with type 2 diabetes mellitus (HCC) LIPID PANEL Routine 08/28/2025 9:59 AM CDT 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) Type 2 diabetes mellitus with hyperglycemia, with long-term current use of insulin (HCC) Type 2 diabetes mellitus with hypoglycemia without coma, with long-term current use of insulin (HCC) Type 2 diabetes mellitus with stage 4 chronic kidney disease, with long-term current use of insulin (HCC) Dyslipidemia associated with type 2 diabetes mellitus (HCC) DIABETIC EYE EXAM Routine 09/30/2021 COLONOSCOPY 11/19/2020 8:53 AM RANGE OPERATOR DIABETES FOOT EXAM Routine 11/19/2017 from Last 3 Months or Most Recently Relevant to Health Maintenance Results * (ABNORMAL) eGFR (11/02/2025 2:24 PM RANGE OPERATOR) eGFR 29(L) >=60 mL/min/1. 73 m2 Comment: [...] last reviewed 2021. Blood 11/02/2025 2:24 PM RANGE OPERATOR 11/02/2025 2:53 PM RANGE OPERATOR Herminia Aceves MD LAB BLOOD ORDERABLES Final Re sult BRETT GOMEZ ([place]) [facility] Department [place] [address] * (ABNORMAL) Renal function panel (11/02/2025 2:24 PM RANGE OPERATOR) Sodium 145 135 - 145 mmol/L Potassium, [...] [facility] ([place]) Blood 11/02/2025 2:24 PM RANGE OPERATOR 11/02/2025 2:53 PM RANGE OPERATOR us Herminia Aceves MD LAB BLOOD ORDERABLES Final Re sult BRETT GOMEZ ([place]) 1 [facility] Department [place] [address] * (ABNORMAL) eGFR (10/23/2025 11:56 AM RANGE OPERATOR) eGFR 27(L) >=60 mL/min/1. 73 m2 Comment: Interpretive Data [...] Current interpretive data was last reviewed 2021. Testing performed by: [facility], [address] [place] [address]., [id number] Blood 10/23/2025 11:5 6 AM RANGE OPERATOR 10/23/2025 5:50 PM RANGE OPERATOR us Herminia Aceves MD LAB BLOOD ORDERABLES Final Re sult BRETT GOMEZ ([place]) 1 [facility] Department [place] [address] * (ABNORMAL) Renal function panel (10/23/2025 11:56 AM RANGE OPERATOR) Sodium 140 135 - 145 mmol/L Comment:Testing performed by : [address] [id number] Potassium, pl 5.2(H) 3.3 - 4.9 mmol/L BRETT GOMEZ ([place]) Comment:Testing performed by : [facility], [address] [place] [address]., [id number] Chloride 106 97 - 110 mmol/L [facility] ([place]) Comment:Testing performed by : [facility], [address] [place] [address]., [id number] CO2 20(L) 22 - 32 mmol/L [facility] ([place]) Comment:Testing performed by : [facility], [address] [place] [address]., [id number] Anion gap 14 2 - 15 mmol/L [facility] ([place]) Comment:Testing performed by : [address] [address] BUN 54(H) 6 - 25 mg/dL [facility] ([place]) Comment:Testing performed by : [facility], [address] [place] [address], [address] Creatinine 2.42(H) 0.80 - 1.30 mg/dL [facility] ([place]) Comment:Testing performed by : [address], [address] Glucose 198 70 - 199 mg/dL [facility] ([place]) [...] Current interpretive data was last revised 2022. Testing performed by: [facility], [address] [place] [address]., [id number] Calcium 9.5 8.5 - 10.3 mg/dL [facility] ([place]) Comment:Testing performed by : [address] [address] Phosphorus, pl 3.6 2.3 - 4.5 mg/dL [facility] ([place]) Comment:Testing performed by : [address] [address] Albumin 3.9 3.5 - 5.0 g/dL [facility] ([place]) Comment:Testing performed by : [address], [address] Blood 10/23/2025 11:5 6 AM RANGE OPERATOR 10/23/2025 11:56 AM RANGE OPERATOR Narrative REECEKIMBERLY GOMEZ ([place]) - 10/23/2025 6:23 PM RANGE OPERATOR Computer would not change registration from Luis Carlos to Aceves even though registration did it on their side. Send results to Herminia Aceves only eHrminia Aceves MD LAB BLOOD ORDERABLES Final Re sult BRETT JASON ([place]) 1 [facility] Department [place] [address] * (ABNORMAL) eGFR (10/19/2025 8:52 AM RANGE OPERATOR) eGFR 28(L) >=60 mL/min/1. 73 m2 Comment: Interpretive Data [...] Current interpretive data was last reviewed 2021. Testing performed by: [facility], [address] [place] [address], [place]., [address] Blood 10/19/2025 8:52 AM RANGE OPERATOR 10/19/2025 3:50 PM RANGE OPERATOR us Herminia Aceves MD LAB BLOOD ORDERABLES Final Re sult [facility] ([place]) [facility] Department [place] [address] * Differential, auto (10/19/2025 8:52 AM RANGE OPERATOR) Neutrophil abs 5.42 1.50 - 6.50 K/cumm Comment:Testing performed by : [facility], [address] [place] [address]., [id number] Imm gran abs 0.04 0.00 - 0.10 K/cumm [facility] ([place]) Comment:Testing performed by : [facility], [address] [place] [address]., [id number] Lymphocyte abs 2.38 0.80 - 3.30 K/cumm [facility] ([place]) Comment:Testing performed by : [facility], [address] [place] [address], [id number] Monocyte abs 0.60 0.20 - 0.80 K/cumm [facility] ([place]) Comment:Testing performed by : [address], [address] Eosinophil abs 0.32 0.00 - 0.50 K/cumm [facility] ([place]) Comment:Testing performed by : [facility], [address] [place] [address]., [id number] Basophil abs 0.06 0.00 - 0.10 K/cumm [facility] ([place]) Comment:Testing performed by : [address], [address] Neutrophil pct 61.4 % [facility] ([place]) Comment: Interpretive Data Percent cell count reference ranges are not reported, since discordance with absolute values may lead to misinterpretation of CBC data. Current Interpretive Data was last revised on 2018. Testing performed by: [facility], [address] [place] [address]., [id number] Imm gran pct 0.5 % [facility] ([place]) Comment: Interpretive Data Percent cell count reference ranges are not reported, since discordance with absolute values may lead to misinterpretation of CBC data. Current Interpretive Data was last revised on 2018. Testing performed by: [address], [address] Lymphocyte pct 27.0 % [facility] ([place]) Comment: Interpretive Data Percent cell count reference ranges are not reported, since discordance with absolute values may lead to misinterpretation of CBC data. Current Interpretive Data was last revised on 2018. Testing performed by: [facility], [address] [place] [address]., [address] Monocyte pct 6.8 % [facility] ([place]) Comment: Interpretive Data Percent cell count reference ranges are not reported, since discordance with absolute values may lead to misinterpretation of CBC data. Current Interpretive Data was last revised on 2018. Testing performed by: [facility], [address] [place] [address]., [id number] Eosinophil pct 3.6 % [facility] ([place]) Comment: Interpretive Data Percent cell count reference ranges are not reported, since discordance with absolute values may lead to misinterpretation of CBC data. Current Interpretive Data was last revised on 2018. Testing performed by: [address] [address] Basophil pct 0.7 % [facility] ([place]) Comment: Interpretive Data Percent cell count reference ranges are not reported, since discordance with absolute values may lead to misinterpretation of CBC data. Current Interpretive Data was last revised on 2018. Testing performed by: [address] [address] Blood 10/19/2025 8:52 AM RANGE OPERATOR 10/19/2025 8:52 AM RANGE OPERATOR Herminia Aceves MD LAB BLOOD ORDERABLES Final Re sult REECEKIMBERLY GOMEZ ([place]) 1 [facility] Department [place] [address] * (ABNORMAL) Pro B-type natriuretic peptide (10/19/2025 8:52 AM RANGE OPERATOR) NT-proBNP 3,026(H) <=450 pg/mL Comment: Interpretive Comments: A. Dyspnea in Acute Care Setting All Ages: < 300 pg/ml, acute heart failure unlikely. < 50 yrs: 300 - 450 pg/ml, further investigation warranted. > 450 pg/ml, acute heart failure likely. 50 - 74 yrs: 300 - 900 pg/ml, further investigation warranted. > 900 pg/ml, acute heart failure likely . > or = 75 yrs: 450 - 1800 pg/ml, further investigation warranted. > 1800 pg/ml, acute heart failure likely. B. Non-acute Setting < 75 yrs < 125 pg/ml, rules out heart failure. > or = 125 pg/ml, further investigation warranted. > or = 75 yrs < 450 pg/ml, rules out heart failure. > or = 450 pg/ml, further investigation warranted. - Knowledge of each individual patient's NT-proBNP range may be more useful than using similar cut-points for every patient. Please note that marked elevations in NT-proBNP levels may be observed in state other than Left Ventricular Congestive Failure, including: acute coronary syndromes, right heart strain/failure (including pulmonary embolism and cor pulmonale), critical illness, renal failure, as well as advanced age. - References: 1. Vira BA et.al. Eur Heart J. 2006:27:330-337. 2. Zenia RW, Aicha KC. J. AM Martinez Cardiol: Cardiovasc Imag. 2009;2: 216- 225. Interpretive Data Last Revised Date: 2018. Testing performed by: [address] [address] Blood 10/19/2025 8:52 AM RANGE OPERATOR 10/19/2025 8:52 AM RANGE OPERATOR Herminia Aceves MD LAB BLOOD ORDERABLES Final Re sult [facility] ([place]) 1 [facility] Department [place] [address] * (ABNORMAL) CBC with auto differential (10/19/2025 8:52 AM RANGE OPERATOR) [facility] WBC 8.82 3.80 - 9.90 K/cumm Comment:Testing performed by : [address] [address] Hgb 9.3(L) 13.0 - 17.5 g/dL [facility] ([place]) Comment:Testing performed by : [address], [address] Hct 31.5(L) 38.9 - 50.3 % [facility] ([place]) Comment:Testing performed by : [address], [address] Plt 240 150 - 400 K/cumm [facility] ([place]) Comment:Testing performed by : [address], [address] MPV 11.5 9.1 - 12.3 fL [facility] ([place]) Comment:Testing performed by : [address], [address] RBC 3.36(L) 4.30 - 5.80 M/cumm [facility] ([place]) Comment:Testing performed by : [address], [address] MCV 93.8 81.3 - 96.4 fL [facility] ([place]) Comment:Testing performed by : [address], [address] MCH 27.7 27.1 - 33.3 pg [facility] ([place]) Comment:Testing performed by : [address], [address] MCHC 29.5(L) 32.3 - 35.7 g/dL [facility] ([place]) Comment:Testing performed by : [address], [address] RDW CV 15.0(H) 11.1 - 14.9 % [facility] ([place]) Comment:Testing performed by : [address], [address] RDW SD 51.7(H) 35.7 - 48.1 fL [facility] ([place]) Comment:Testing performed by : [address], [address] NRBC abs 0.00 0.00 - 0.01 K/cumm [facility] ([place]) Comment:Testing performed by : [address], [address] Blood 10/19/2025 8:52 AM RANGE OPERATOR 10/19/2025 8:52 AM RANGE OPERATOR us Herminia Aceves MD LAB BLOOD ORDERABLES Final Re sult BRETT JASON ([place]) 1 [facility] Department [place] [address] * (ABNORMAL) Renal function panel (10/19/2025 8:52 AM RANGE OPERATOR) Sodium 143 135 - 145 mmol/L Comment:Testing performed by : [facility], [address] [place] [address]., [address] Potassium, pl 5.5(H) 3.3 - 4.9 mmol/L [facility] ([place]) Comment:Testing performed by : [facility], [address] [place] [address], [address] Chloride 108 97 - 110 mmol/L [facility] ([place]) Comment:Testing performed by : [address], [address] CO2 23 22 - 32 mmol/L [facility] ([place]) Comment:Testing performed by : [facility], [address] [place] [address], [address] Anion gap 12 2 - 15 mmol/L [facility] ([place]) Comment:Testing performed by : [address], [address] BUN 51(H) 6 - 25 mg/dL [facility] ([place]) Comment:Testing performed by : [address], [address] Creatinine 2.37(H) 0.80 - 1.30 mg/dL [facility] ([place]) Comment:Testing performed by : [address], [address] Glucose 129 70 - 199 mg/dL [facility] ([place]) Comment: Interpretive Data Fasting glucose [...] classification and Diagnosis of Diabetes Diabetes Care 2021; 46: S19-S40. Current interpretive data was last revised 2022. Testing performed by: [facility], [address] [place] [address]., [address] Calcium 9.6 8.5 - 10.3 mg/dL [facility] ([place]) Comment:Testing performed by : [facility], [address] [place] [address]., [address] Phosphorus, pl 4.2 2.3 - 4.5 mg/dL [facility] ([place]) Comment:Testing performed by : [facility], [address] [place] [address], [address] Albumin 3.8 3.5 - 5.0 g/dL [facility] ([place]) Comment:Testing performed by : [facility], [address] [place] [address]., [address] Blood 10/19/2025 8:52 AM RANGE OPERATOR 10/19/2025 8:52 AM RANGE OPERATOR us Herminia Aceves MD LAB BLOOD ORDERABLES Final Re sult BRETT JASON ([place]) 1 [facility] Department [place] [address] * (ABNORMAL) eGFR (10/19/2025 8:50 AM RANGE OPERATOR) eGFR 27(L) >=60 mL/min/1. 73 m2 Comment: Interpretive Data [...] Current interpretive data was last reviewed 2021. Testing performed by: [address] [address] Blood 10/19/2025 8:50 AM RANGE OPERATOR 10/19/2025 3:50 PM RANGE OPERATOR Blanche [place]ley MD LAB BLOOD ORDERABLES Ching hernandez Result [facility] ([place]) 1 [facility] Department [place] [address] * (ABNORMAL) Basic metabolic panel (10/19/2025 8:50 AM RANGE OPERATOR) Sodium 144 135 - 145 mmol/L Comment:Testing performed by : [address], [address] Potassium, pl 5.4(H) 3.3 - 4.9 mmol/L [facility] ([place]) Comment:Testing performed by : [address], [address] Chloride 110 97 - 110 mmol/L [facility] ([place]) Comment:Testing performed by : [address], [address] CO2 23 22 - 32 mmol/L [facility] ([place]) Comment:Testing performed by : [address], [address] Anion gap 11 2 - 15 mmol/L [facility] ([place]) Comment:Testing performed by : [address], [address] BUN 52(H) 6 - 25 mg/dL [facility] ([place]) Comment:Testing performed by : [address], [address] Creatinine 2.41(H) 0.80 - 1.30 mg/dL [facility] ([place]) Comment:Testing performed by : [address], [address] Glucose 131 70 - 199 mg/dL [facility] ([place]) [...] classification and Diagnosis of Diabetes Diabetes Care 2021; 46: S19-S40. Current interpretive data was last revised 2022. Testing performed by: [facility], [address] [place] [address]., [address] Calcium 9.7 8.5 - 10.3 mg/dL [facility] ([place]) Comment:Testing performed by : [facility], [address] [place] [address]., [address] Blood 10/19/2025 8:50 AM RANGE OPERATOR 10/19/2025 3:40 PM RANGE OPERATOR Blanche [place]ley MD LAB BLOOD ORDERABLES Ching l Result [facility] ([place]) 1 [facility] Department of Laboratories [place], [place] [id number] * POCT glucose (10/14/2025 10:57 AM RANGE OPERATOR) Glucose Blood, POC 68 Normal Fasting 70 - 100, Random <200 mg/dL Blood 10/14/2025 10:5 7 AM RANGE OPERATOR Ciera Aldridge NP POINT OF CARE TEST ORDERABLES Final Result * POCT glucose (10/06/2025 5:04 PM RANGE OPERATOR) Glucose, POC 130 70 - 199 mg/dL Blood 10/06/2025 5:04 PM RANGE OPERATOR 10/06/2025 5:04 PM RANGE OPERATOR Blanche [place]ley MD LAB POCT ORDERABLES - DEV ICE Final Result [facility] ([place]) 1 [facility] [place] [address] * (ABNORMAL) POCT glucose (10/06/2025 11:35 AM RANGE OPERATOR) Glucose, POC 286(H) 70 - 199 mg/dL Blood 10/06/2025 11:3 5 AM RANGE OPERATOR 10/06/2025 11:35 AM RANGE OPERATOR us Blanhce [place]ley MD LAB POCT ORDERABLES - DEV ICE Final Result Performing Organization Address City/[facility]/ZIP Co de Phone Number BRETT MotleyBUDA) 1 [facility] [place] [address] * POCT glucose (10/06/2025 7:47 AM RANGE OPERATOR) Glucose, POC 126 70 - 199 mg/dL Blood 10/06/2025 7:47 AM RANGE OPERATOR 10/06/2025 7:47 AM RANGE OPERATOR us Blanche [place]ley MD LAB POCT ORDERABLES - DEV ICE Final Result Performing Organization Address City/[facility]/ZIP Co de Phone Number [facility]TT [facility] ([place]) 1 [facility] [place] [address] * (ABNORMAL) eGFR (10/06/2025 6:47 AM RANGE OPERATOR) eGFR 23(L) >=60 mL/min/1. 73 m2 Comment: Interpretive Data [...] interpretive data was last reviewed 2021. Blood 10/06/2025 6:47 AM RANGE OPERATOR 10/06/2025 8:35 AM RANGE OPERATOR us Herminia Aceves MD LAB BLOOD ORDERABLES Final Re sult [facility] ([place]) 1 [facility] Department [place] [address] * (ABNORMAL) CBC without differential (10/06/2025 6:47 AM RANGE OPERATOR) WBC 8.61 3.80 - 9.90 K/cumm Hgb 9.2(L) 13.0 - 17.5 g/dL [facility] ([place]) Hct 30.1(L) 38.9 - 50.3 % [facility] ([place]) Plt 184 150 - 400 K/cumm [facility] ([place]) MPV 11.0 9.1 - 12.3 fL [facility] ([place]) RBC 3.30(L) 4.30 - 5.80 M/cumm [facility] ([place]) MCV 91.2 81.3 - 96.4 fL [facility] ([place]) MCH 27.9 27.1 - 33.3 pg [facility] ([place]) MCHC 30.6(L) 32.3 - 35.7 g/dL [facility] ([place]) RDW CV 14.1 11.1 - 14.9 % [facility] ([place]) RDW SD 46.7 35.7 - 48.1 fL [facility] ([place]) NRBC abs 0.00 0.00 - 0.01 K/cumm [facility] ([place]) Blood 10/06/2025 6:47 AM RANGE OPERATOR 10/06/2025 7:29 AM RANGE OPERATOR us Marc PALACIOS LAB BLOOD ORDERABLES Final Result [facility] ([place]) 1 [facility] Department [place] [address] * (ABNORMAL) Renal function panel (10/06/2025 6:47 AM RANGE OPERATOR) Sodium 141 135 - 145 mmol/L Potassium, pl 4.7 3.3 - 4.9 mmol/L [facility] ([place]) Chloride 109 97 - 110 mmol/L [facility] ([place]) CO2 20(L) 22 - 32 mmol/L [facility] ([place]) Anion gap 12 2 - 15 mmol/L [facility] ([place]) BUN 46(H) 6 - 25 mg/dL [facility] ([place]) Creatinine 2.80(H) 0.80 - 1.30 mg/dL [facility] ([place]) Glucose 130 70 - 199 mg/dL [facility] ([place]) [...] interpretive data was last revised 2022. Calcium 9.2 8.5 - 10.3 mg/dL [facility] ([place]) Phosphorus, pl 3.6 2.3 - 4.5 mg/dL [facility] ([place]) Albumin 3.3(L) 3.5 - 5.0 g/dL [facility] ([place]) Blood 10/06/2025 6:47 AM RANGE OPERATOR 10/06/2025 8:35 AM RANGE OPERATOR us Herminia Aceves MD LAB BLOOD ORDERABLES Final Re sult [facility] ([place]) 1 [place] [address] * POCT glucose (10/06/2025 3:09 AM RANGE OPERATOR) Glucose, POC 134 70 - 199 mg/dL Blood 10/06/2025 3:09 AM RANGE OPERATOR 10/06/2025 3:09 AM RANGE OPERATOR us Blanche [place] MD LAB POCT ORDERABLES - DEV ICE Final Result Performing Organization Address City/[facility]/ZIP Co de Phone Number [facility]TT G[facility] ([place]) 1 [facility] [place] [address] * POCT glucose (10/05/2025 8:59 PM RANGE OPERATOR) Glucose, POC 152 70 - 199 mg/dL Blood 10/05/2025 8:59 PM RANGE OPERATOR 10/05/2025 8:59 PM RANGE OPERATOR us Blanche [place]ley MD LAB POCT ORDERABLES - DEV ICE Final Result Performing Organization Address City/[facility]/ZIP Co de Phone Number [facility] ([place]) 1 [facility] [place] [address] * POCT glucose (10/05/2025 4:23 PM RANGE OPERATOR) Glucose, POC 199 70 - 199 mg/dL Blood 10/05/2025 4:23 PM RANGE OPERATOR 10/05/2025 4:23 PM RANGE OPERATOR us Blanche Oakley MD LAB POCT ORDERABLES - DEV ICE Final Result [facility] ([place]) 1 [facility] [place] [address] * POCT glucose (10/05/2025 11:01 AM RANGE OPERATOR) Glucose, POC 137 70 - 199 mg/dL Blood 10/05/2025 11:0 1 AM RANGE OPERATOR 10/05/2025 11:01 AM RANGE OPERATOR Blanche Oakley MD LAB POCT ORDERABLES - DEV ICE Final Result Performing Organization Address City/[facility]/ZIP Co de Phone Number BRETT G[facility] ([place]) 1 [facility] [place] [address] * POCT glucose (10/05/2025 7:06 AM RANGE OPERATOR) Glucose, POC 149 70 - 199 mg/dL Blood 10/05/2025 7:06 AM RANGE OPERATOR 10/05/2025 7:06 AM RANGE OPERATOR Blanche Oakley MD LAB POCT ORDERABLES - DEV ICE Final Result Performing Organization Address City/[facility] Co de Phone Number [facility] ([place]) 1 [facility] [place] [address] * (ABNORMAL) eGFR (10/05/2025 3:18 AM RANGE OPERATOR) [facility] eGFR 21(L) >=60 mL/min/1. 73 m2 Comment: Interpretive Data [...] interpretive data was last reviewed 2021. Blood 10/05/2025 3:18 AM RANGE OPERATOR 10/05/2025 3:28 AM RANGE OPERATOR us Herminia Aceves MD LAB BLOOD ORDERABLES Final Re sult [facility] ([place]) 1 [facility] [place] [place] [address] * (ABNORMAL) CBC without differential (10/05/2025 3:18 AM RANGE OPERATOR) WBC 8.92 3.80 - 9.90 K/cumm Hgb 8.6(L) 13.0 - 17.5 g/dL [facility] ([place]) Hct 28.0(L) 38.9 - 50.3 % [facility] ([place]) Plt 186 150 - 400 K/cumm [facility] ([place]) MPV 10.7 9.1 - 12.3 fL [facility] ([place]) RBC 3.14(L) 4.30 - 5.80 M/cumm [facility] ([place]) MCV 89.2 81.3 - 96.4 fL [facility] ([place]) MCH 27.4 27.1 - 33.3 pg [facility] ([place]) MCHC 30.7(L) 32.3 - 35.7 g/dL [facility] ([place]) RDW CV 14.0 11.1 - 14.9 % [facility] ([place]) RDW SD 45.4 35.7 - 48.1 fL [facility] ([place]) NRBC abs 0.00 0.00 - 0.01 K/cumm [facility] ([place]) Blood 10/05/2025 3:18 AM RANGE OPERATOR 10/05/2025 3:28 AM RANGE OPERATOR us Marc PALACIOS LAB BLOOD ORDERABLES Final Result [facility] ([place]) 1 [facility] [place] [address] * (ABNORMAL) Renal function panel (10/05/2025 3:18 AM RANGE OPERATOR) Sodium 140 135 - 145 mmol/L Potassium, pl 4.6 3.3 - 4.9 mmol/L [facility] ([place]) Chloride 107 97 - 110 mmol/L [facility] ([place]) CO2 23 22 - 32 mmol/L [facility] ([place]) Anion gap 10 2 - 15 mmol/L [facility] ([place]) BUN 54(H) 6 - 25 mg/dL [facility] ([place]) Creatinine 2.93(H) 0.80 - 1.30 mg/dL [facility] ([place]) Glucose 152 70 - 199 mg/dL [facility] ([place]) Comment: Interpretive Data Fasting glucose >/= [...] classification and Diagnosis of Diabetes Diabetes Care 2021; 46: S19-S40. Current interpretive data was last revised 2022. Calcium 8.6 8.5 - 10.3 mg/dL [facility] ([place]) Phosphorus, pl 3.3 2.3 - 4.5 mg/dL [facility] ([place]) Albumin 3.3(L) 3.5 - 5.0 g/dL [facility] ([place]) Blood 10/05/2025 3:18 AM RANGE OPERATOR 10/05/2025 3:28 AM RANGE OPERATOR us Herminia Aceves MD LAB BLOOD ORDERABLES Final Re sult [facility] G[facility] ([place]) 1 [facility] Department [place] [address] * POCT glucose (10/05/2025 2:47 AM RANGE OPERATOR) Glucose, POC 151 70 - 199 mg/dL Blood 10/05/2025 2:47 AM RANGE OPERATOR 10/05/2025 2:47 AM RANGE OPERATOR us Tamanna James MD LAB POCT ORDERABLES - DEVICE F inal Result Performing Organization Address [facility] Co de Phone Number [facility] ([place]) 1 [facility] [place] [address] * POCT glucose (10/04/2025 8:44 PM RANGE OPERATOR) Glucose, POC 162 70 - 199 mg/dL Blood 10/04/2025 8:44 PM RANGE OPERATOR 10/04/2025 8:44 PM RANGE OPERATOR Tamanna James MD LAB POCT ORDERABLES - DEVICE F inal Result Performing Organization Address [facility] Co de Phone Number BRETT [facility] ([place]) 1 [facility] [place] [address] * POCT glucose (10/04/2025 4:28 PM RANGE OPERATOR) Glucose, POC 170 70 - 199 mg/dL Blood 10/04/2025 4:28 PM RANGE OPERATOR 10/04/2025 4:28 PM RANGE OPERATOR Tamanna James MD LAB POCT ORDERABLES - DEVICE F inal Result Performing Organization Address [facility] Co de Phone Number BRETT [facility] ([place]) 1 [facility] [place] [address] * POCT glucose (10/04/2025 11:20 AM RANGE OPERATOR) Glucose, POC 178 70 - 199 mg/dL Blood 10/04/2025 11:2 0 AM RANGE OPERATOR 10/04/2025 11:20 AM RANGE OPERATOR Tamanna James MD LAB POCT ORDERABLES - DEVICE F inal Result Performing Organization Address City/[facility]/ZIP Co de Phone Number [facility] ([place]) 1 [facility] [place] [address] * POCT glucose (10/04/2025 7:09 AM RANGE OPERATOR) Glucose, POC 119 70 - 199 mg/dL Blood 10/04/2025 7:09 AM RANGE OPERATOR 10/04/2025 7:09 AM RANGE OPERATOR us Tamanna James MD LAB POCT ORDERABLES - DEVICE F inal Result Performing Organization Address [facility] Co de Phone Number [facility] ([place]) 1 [place] [address] * (ABNORMAL) eGFR (10/04/2025 2:59 AM RANGE OPERATOR) [facility] eGFR 18(L) >=60 mL/min/1. 73 m2 Comment: Interpretive Data [...] interpretive data was last reviewed 2021. Blood 10/04/2025 2:59 AM RANGE OPERATOR 10/04/2025 4:02 AM RANGE OPERATOR us Herminia Aceves MD LAB BLOOD ORDERABLES Final Re sult Performing Organization Address City/[facility]/ZIP Co de Phone Number [facility] ([place]) 1 [facility] Department [place] [address] * (ABNORMAL) CBC without differential (10/04/2025 2:59 AM RANGE OPERATOR) [facility] WBC 8.84 3.80 - 9.90 K/cumm Hgb 8.7(L) 13.0 - 17.5 g/dL [facility] ([place]) Hct 28.5(L) 38.9 - 50.3 % [facility] ([place]) Plt 194 150 - 400 K/cumm [facility] ([place]) MPV 10.9 9.1 - 12.3 fL [facility] ([place]) RBC 3.14(L) 4.30 - 5.80 M/cumm [facility] ([place]) MCV 90.8 81.3 - 96.4 fL [facility] ([place]) MCH 27.7 27.1 - 33.3 pg [facility] ([place]) MCHC 30.5(L) 32.3 - 35.7 g/dL [facility] ([place]) RDW CV 13.8 11.1 - 14.9 % [facility] ([place]) RDW SD 45.7 35.7 - 48.1 fL [facility] ([place]) NRBC abs 0.00 0.00 - 0.01 K/cumm [facility] ([place]) Blood 10/04/2025 2:59 AM RANGE OPERATOR 10/04/2025 4:03 AM RANGE OPERATOR Marc PALACIOS LAB BLOOD ORDERABLES Final Result [facility] ([place]) 1 [facility] Department [place] [address] * (ABNORMAL) Renal function panel (10/04/2025 2:59 AM RANGE OPERATOR) [facility] Sodium 143 135 - 145 mmol/L Potassium, pl 4.0 3.3 - 4.9 mmol/L [facility] ([place]) Chloride 107 97 - 110 mmol/L [facility] ([place]) CO2 25 22 - 32 mmol/L [facility] ([place]) Anion gap 11 2 - 15 mmol/L [facility] ([place]) BUN 63(H) 6 - 25 mg/dL [facility] ([place]) Creatinine 3.35(H) 0.80 - 1.30 mg/dL [facility] ([place]) Glucose 124 70 - 199 mg/dL [facility] ([place]) [...] interpretive data was last revised 2022. Calcium 8.6 8.5 - 10.3 mg/dL [facility] ([place]) Phosphorus, pl 3.9 2.3 - 4.5 mg/dL [facility] ([place]) Albumin 3.3(L) 3.5 - 5.0 g/dL [facility] ([place]) Blood 10/04/2025 2:59 AM RANGE OPERATOR 10/04/2025 4:02 AM RANGE OPERATOR us Herminia Aceves MD LAB BLOOD ORDERABLES Final Re sult [facility] ([place]) 1 [facility] [place] [address] * POCT glucose (10/04/2025 2:18 AM RANGE OPERATOR) Glucose, POC 135 70 - 199 mg/dL Blood 10/04/2025 2:18 AM RANGE OPERATOR 10/04/2025 2:18 AM RANGE OPERATOR Faith Hightower MD LAB POCT ORDERABLES - DEVICE Final Result [facility] G[facility] ([place]) 1 [facility] [employer] [place] [address] * POCT glucose (10/03/2025 7:59 PM RANGE OPERATOR) Glucose, POC 183 70 - 199 mg/dL Blood 10/03/2025 7:59 PM RANGE OPERATOR 10/03/2025 7:59 PM RANGE OPERATOR Faith Hightower MD LAB POCT ORDERABLES - DEVICE Final Result [facility] G[facility] ([place]) 1 [facility] [place] [address] * POCT glucose (10/03/2025 4:35 PM RANGE OPERATOR) Glucose, POC 127 70 - 199 mg/dL Blood 10/03/2025 4:35 PM RANGE OPERATOR 10/03/2025 4:35 PM RANGE OPERATOR us Faith Hightower MD LAB POCT ORDERABLES - DEVICE Final Result Performing Organization Address City/[facility]/ZIP Co de Phone Number [facility] ([place]) 1 [facility] [place] [address] * POCT glucose (10/03/2025 11:13 AM RANGE OPERATOR) Glucose, POC 171 70 - 199 mg/dL Blood 10/03/2025 11:1 3 AM RANGE OPERATOR 10/03/2025 11:13 AM RANGE OPERATOR us Faith Hightower MD LAB POCT ORDERABLES - DEVICE Final Result Performing Organization Address City/[facility]/ZIP Co de Phone Number [facility] ([place]) 1 [facility] [place] [address] * POCT glucose (10/03/2025 7:14 AM RANGE OPERATOR) Glucose, POC 114 70 - 199 mg/dL Blood 10/03/2025 7:14 AM RANGE OPERATOR 10/03/2025 7:14 AM RANGE OPERATOR Faith Hightower MD LAB POCT ORDERABLES - DEVICE Final Result Performing Organization Address [facility] Co de Phone Number [facility] ([place]) 1 [facility] [employer] [place] [address] * (ABNORMAL) eGFR (10/03/2025 3:37 AM RANGE OPERATOR) eGFR 15(L) >=60 mL/min/1. 73 m2 Comment: Interpretive Data [...] interpretive data was last reviewed 2021. Blood 10/03/2025 3:37 AM RANGE OPERATOR 10/03/2025 4:54 AM RANGE OPERATOR us Herminia Aceves MD LAB BLOOD ORDERABLES Final Re sult Performing Organization Address City/[facility]/ZIP Co de Phone Number [facility] ([place]) 1 [facility] [place] [address] * (ABNORMAL) CBC without differential (10/03/2025 3:37 AM RANGE OPERATOR) WBC 9.07 3.80 - 9.90 K/cumm Hgb 8.2(L) 13.0 - 17.5 g/dL [facility] ([place]) Hct 26.8(L) 38.9 - 50.3 % [facility] ([place]) Plt 209 150 - 400 K/cumm [facility] ([place]) MPV 11.0 9.1 - 12.3 fL [facility] ([place]) RBC 3.00(L) 4.30 - 5.80 M/cumm [facility] ([place]) MCV 89.3 81.3 - 96.4 fL [facility] ([place]) MCH 27.3 27.1 - 33.3 pg [facility] ([place]) MCHC 30.6(L) 32.3 - 35.7 g/dL [facility] ([place]) RDW CV 14.1 11.1 - 14.9 % [facility] ([place]) RDW SD 45.7 35.7 - 48.1 fL [facility] ([place]) NRBC abs 0.00 0.00 - 0.01 K/cumm [facility] Blood 10/03/2025 3:37 AM RANGE OPERATOR 10/03/2025 4:54 AM RANGE OPERATOR Marc PALACIOS LAB BLOOD ORDERABLES Final Result [facility] ([place]) 1 [facility] Department [place] [address] * (ABNORMAL) Renal function panel (10/03/2025 3:37 AM RANGE OPERATOR) Sodium 136 135 - 145 mmol/L Potassium, pl 3.6 3.3 - 4.9 mmol/L [facility] ([place]) Chloride 101 97 - 110 mmol/L [facility] ([place]) CO2 26 22 - 32 mmol/L [facility] ([place]) Anion gap 9 2 - 15 mmol/L [facility] ([place]) BUN 73(H) 6 - 25 mg/dL [facility] ([place]) Creatinine 3.96(H) 0.80 - 1.30 mg/dL [facility] ([place]) Glucose 139 70 - 199 mg/dL [facility] ([place]) Comment: Interpretive Data Fasting glucose [...] classification and Diagnosis of Diabetes Diabetes Care 2021; 46: S19-S40. Current interpretive data was last revised 2022. Calcium 8.6 8.5 - 10.3 mg/dL [facility] ([place]) Phosphorus, pl 4.9(H) 2.3 - 4.5 mg/dL [facility] ([place]) Albumin 3.3(L) 3.5 - 5.0 g/dL [facility] ([place]) Blood 10/03/2025 3:37 AM RANGE OPERATOR 10/03/2025 4:54 AM RANGE OPERATOR Herminia Aceves MD LAB BLOOD ORDERABLES Final Re sult Performing Organization Address City/[facility]/ZIP Co de Phone Number [facility] ([place]) 1 [facility] [place] [address] * POCT glucose (10/03/2025 3:10 AM RANGE OPERATOR) Glucose, POC 149 70 - 199 mg/dL Blood 10/03/2025 3:10 AM RANGE OPERATOR 10/03/2025 3:10 AM RANGE OPERATOR Faith Hightower MD LAB POCT ORDERABLES - DEVICE Final Result Performing Organization Address City/[facility]/ZIP Co de Phone Number [facility] ([place]) 1 [facility] [employer] [address] * (ABNORMAL) POCT glucose (10/02/2025 8:17 PM RANGE OPERATOR) Glucose, POC 234(H) 70 - 199 mg/dL Blood 10/02/2025 8:17 PM RANGE OPERATOR 10/02/2025 8:17 PM RANGE OPERATOR Faith Hightower MD LAB POCT ORDERABLES - DEVICE Final Result [facility] G[facility] ([place]) 1 [facility] [place] [address] * POCT glucose (10/02/2025 4:23 PM RANGE OPERATOR) Glucose, POC 151 70 - 199 mg/dL Blood 10/02/2025 4:23 PM RANGE OPERATOR 10/02/2025 4:23 PM RANGE OPERATOR Faith Hightower MD LAB POCT ORDERABLES - DEVICE Final Result Performing Organization Address [facility] de Phone Number BRETT [place]) 1 [facility] [place] [address] * Clinical pathology report (10/02/2025 12:18 PM RANGE OPERATOR) Miscellaneous 10/02/2025 12: 18 PM RANGE OPERATOR 10/06/2025 8:09 AM RANGE OPERATOR Narrative 10/07/2025 11:53 AM RANGE OPERATOR EPIC results best viewed via link to PDF [facility] Department of Pathology [address] [place] [id number] Final Report Note to Patients: This report may contain a detailed description of human tissue sent by a health care provider to the laboratory for pathologic evaluation. The content of this report is essential for diagnosis and may provide important critical findings. This information may be unfamiliar to patients to review without a medical professional present. It is advised that the patient review this report in the presence of a health care provider who can answer questions and explain the details. Patient Name: MONICO GLEASON Address: [address] [place] [id number]- Gender: M : 1945 (Age: 79) Service: Medical Location: [facility] Hospital #: [id number] Patient Type: [facility] Taken: 10/02/2025 Received: 10/06/2025 Accessioned: 10/06/2025 Physician(s): Herminia Aceves M.D. Specimen(s) Received A: Blood (serum) Serum Protein ElectrophoresisReported:10/07/2025 Interpretation: Serum Protein Electrophoresis: Normal serum protein electrophoresis pattern. Comment: Serum Protein Electrophoresis: There are no significant abnormalities of the protein fractions. See Epic and/or separate report for protein fraction table. Matteo Coleman MD PhDReport Electronically Reviewed and Signed Out By Matteo Coleman MD PhD 10/07/2025 11:51:01 The performance characteristics of some immunohistochemical stains, fluorescence in-situ hybridization tests and immunophenotyping by flow cytometry cited in this report (if any) were determined by the Surgical Pathology Department at [facility] as part of an ongoing quality control engineer program and in compliance with federally mandated regulations drawn from the Clinical Laboratory Improvement Act of 1988 (CLIA '88). Some of these tests rely on the use of analyte specific reagents and are subject to specific labeling requirements by the US Food and Drug Administration. Such diagnostic tests may only be performed in a facility that is certified by the Department of Health and Human Services as a high complexity laboratory under CLIA '88. The FDA has determined that such clearance or approval is not necessary. This test is used for clinical purposes. It should not be regarded as investigational or for research. Nevertheless, federal rules concerning the medical use of analyte specific reagents require that the following disclaimer be attached to the report: This test was developed and its performance characteristics determined by the Surgical Pathology Department [facility]. It has not been cleared or approved by the U. S. Food and Drug Administration. REPORT IMAGES AND SCANNED DOCUMENTS, IF INCLUDED, ONLY VIEWABLE IN PDF VERSION OF REPORTe o Herminia Aceves MD LAB PATHOLOGY ORDERABLES Ching l Result * (ABNORMAL) Protein electrophoresis with reflex, serum with interpretation (10/02/2025 12:18 PM RANGE OPERATOR) Protein, sr 6.9 6.2 - 8.2 g/dL Comment:Testing performed by : [facility], [address] [place] [address], [place]., [id number] Albumin 3.4 3.2 - 5.0 g/dL [facility] ([place]) Comment:Testing performed by : [facility], [address] [place] [address], [place] [address] Alpha-1 globulin 0.4 0.2 - 0.4 g/dL [facility] ([place]) Comment:Testing performed by : [facility], [address] [place] [address]., [id number] Alpha-2 globulin 1.1(H) 0.5 - 1.0 g/dL [facility] ([place]) Comment:Testing performed by : [facility], [address] [place] [address]., [id number] Beta-1 globulin 0.4 0.3 - 0.6 g/dL [facility] ([place]) Comment:Testing performed by : [facility], [address] [place] [address]., [id number] Beta-2 globulin 0.5 0.2 - 0.6 g/dL [facility] ([place]) Comment:Testing performed by : [facility], [address] [place] [address]., [id number] Gamma globulin 1.1 0.5 - 1.7 g/dL [facility] ([place]) Comment:Testing performed by : [facility], [address] [place] [address]., [phone] SPEP interp See Cl Path Rpt [facility] ([place]) Comment:Testing performed by : [facility], [address] [place] [address]., [id number] Blood 10/02/2025 12:1 8 PM RANGE OPERATOR 10/02/2025 6:26 PM RANGE OPERATOR us Herminia Aceves MD LAB BLOOD ORDERABLES Final Re sult [facility] ([place]) 1 [facility] Department [place] [address] * CT Abdomen Pelvis WO Contrast (10/02/2025 11:48 AM RANGE OPERATOR) Anatomical Region Laterality Modality Body N/A Computed Tomogra phy 10/02/2025 12:3 6 PM RANGE OPERATOR Impressions 10/02/2025 12:36 PM RANGE OPERATOR Resolution of previous hydronephrosis with bilateral ureteral stents normally positioned. Electronically signed by: Monico Matta M.D. Narrative 10/02/2025 12:36 PM RANGE OPERATOR EXAMINATION: CT ABDOMEN PELVIS WO CONTRAST ORDERING HEALTHCARE PROVIDER: YANG ARROYO HISTORY: assess stent position/resolving hydro. Creatinine worsening. TECHNIQUE: CT abdomen and pelvis without intravenous and without oral contrast. Reconstructed coronal and sagittal MPR images reviewed. All images stored on PACS. Automated exposure control was used as a dose optimization technique for this examination. COMPARISON: 09/29/2025 FINDINGS: The sensitivity for detection of visceral lesions is diminished without the use of intravenous contrast. LOWER CHEST: Bibasilar linear densities most suggestive of scarring or atelectasis similar to slightly more pronounced than previous. No large effusion. Heart size moderately enlarged partially visualized. Coronary chill calcifications are present. LIVER: Normal length. GALLBLADDER: Gallbladder is distended containing multiple small stones and/or sludge. No surrounding induration. SPLEEN: Normal length. PANCREAS: No peripancreatic inflammation. ADRENALS: No discrete nodules. KIDNEYS/URINARY TRACT: The right kidney demonstrates resolution of previous hydronephrosis. A double pigtail ureteral stent is identified extending to the upper pole moiety superiorly and extending to the urinary bladder inferiorly in appropriate position. Calyceal stone mid pole right kidney unchanged. Ureteral stone mid to distal segment on the right unchanged. Left kidney also demonstrates a double pigtail ureteral stent positioned appropriately. Unchanged calyceal stones. Bladder is decompressed containing a balloon tip Lazar catheter. GI: No bowel obstruction. Normal appendix. PERITONEUM: No free intraperitoneal air or ascites. VASCULATURE: No abdominal aortic aneurysm. MUSCULOSKELETAL: No acute findings. OTHER: No other acute findings. Procedure Note Monico Matta MD - 10/02/2025 EXAMINATION: CT ABDOMEN PELVIS WO CONTRAST ORDERING HEALTHCARE PROVIDER: YANG ARROYO HISTORY: assess stent position/resolving hydro. Creatinine worsening. TECHNIQUE: CT abdomen and pelvis without intravenous and without oral contrast. Reconstructed coronal and sagittal MPR images reviewed. All images stored on PACS. Automated exposure control was used as a dose optimization technique for this examination. COMPARISON: 09/29/2025 FINDINGS: The sensitivity for detection of visceral lesions is diminished without the use of intravenous contrast. LOWER CHEST: Bibasilar linear densities most suggestive of scarring or atelectasis similar to slightly more pronounced than previous. No large effusion. Heart size moderately enlarged partially visualized. Coronary chill calcifications are present. LIVER: Normal length. GALLBLADDER: Gallbladder is distended containing multiple small stones and/or sludge. No surrounding induration. SPLEEN: Normal length. PANCREAS: No peripancreatic inflammation. ADRENALS: No discrete nodules. KIDNEYS/URINARY TRACT: The right kidney demonstrates resolution of previous hydronephrosis. A double pigtail ureteral stent is identified extending to the upper pole moiety superiorly and extending to the urinary bladder inferiorly in appropriate position. Calyceal stone mid pole right kidney unchanged. Ureteral stone mid to distal segment on the right unchanged. Left kidney also demonstrates a double pigtail ureteral stent positioned appropriately. Unchanged calyceal stones. Bladder is decompressed containing a balloon tip Lazar catheter. GI: No bowel obstruction. Normal appendix. PERITONEUM: No free intraperitoneal air or ascites. VASCULATURE: No abdominal aortic aneurysm. MUSCULOSKELETAL: No acute findings. OTHER: No other acute findings. IMPRESSION: Resolution of previous hydronephrosis with bilateral ureteral stents normally positioned. Electronically signed by: Monico Matta M.D. Yang Arroyo UROGYNECOLOGY PHYSICIAN IMG CT PROCEDURES Final Resu lt * (ABNORMAL) Urinalysis reflex to microscopic and culture Urine (10/02/2025 11:30 AM RANGE OPERATOR) Color, ur Light-Brown Clarity, ur Turbid(A) Clear [facility] ([place]) Specific gravity, ur 1.013 1.003 - 1.030 [facility] ([place]) pH, urine 6.5 [facility] ([place]) Comment: Interpretive Data U rine pH is affected by diet, medications, systemic acid-base disturbances, and renal tubular function. pH may affect urinary stone formation. For example, urine pH below 6.0 may help reduce the tendency for calcium phosphate stones and pH greater than 6.0 may reduce the tendency for uric acid stone formation. Source: 2can Current Interpretive Data was last revised on 2017 Protein, ur ql 1+(A) Negative [facility] ([place]) Glucose, ur ql 1+(A) Negative [facility] ([place]) Ketones, ur Negative Negative [facility] ([place]) Bilirubin, ur Negative Negative [facility] ([place]) Blood, ur 3+(A) Negative [facility] ([place]) Urobilinogen, ur <2.0 <2.0 mg/dL [facility] ([place]) Nitrite, ur Negative Negative [facility] A ([place]) Leukocyte esterase, ur 4+(A) Negative [facility] UA reflex comment Reflex to microscopic UA will be performed. [facility] ([place]) Urine 10/02/2025 11:3 0 AM RANGE OPERATOR 10/02/2025 11:34 AM RANGE OPERATOR Herminia Aceves MD LAB MICROBIOLOGY - GENERAL OR DERABLES Final Result Performing Organization Address [facility] Co de Phone Number [facility] ([place] 1 [facility] [place] [address] * Sodium, urine, random (10/02/2025 11:30 AM RANGE OPERATOR) Sodium, ur 72 mmol/L Comment: Interpretive Data No reference range established. Current interpretive data was last revised 2019. Urine 10/02/2025 11:3 0 AM RANGE OPERATOR 10/02/2025 11:34 AM RANGE OPERATOR Narrative [facility] ([place] - 10/02/2025 11:56 AM RANGE OPERATOR No normal range Herminia Aceves MD LAB URINE ORDERABLES Final Re sult Performing Organization Address [facility] Co de Phone Number [facility] ([place] 1 [facility] [place] [address] * (ABNORMAL) Urinalysis, microscopic only (10/02/2025 11:30 AM RANGE OPERATOR) WBC, ur 21-50(A) 0 - 5 /HPF RBC, ur >50(A) 0 - 2 /HPF [facility] ([place]) Bacteria, ur Trace(A) [facility] ([place]) Mucous, ur Present(A) [facility] A ([place]) Culture Reflex Comment Reflex to urine culture will be performed. BRETT [facility] ([place]) Urine 10/02/2025 11:3 0 AM RANGE OPERATOR 10/02/2025 11:34 AM RANGE OPERATOR Herminia Aceves MD LAB URINE ORDERABLES Final Re sult Performing Organization Address City/[facility]/ZIP Co de Phone Number [facility] ([place]) 1 [facility] [place] [address] * Urine culture Urine (10/02/2025 11:30 AM RANGE OPERATOR) Report Final Report: No growth Comment:Testing performed by : [facility], 1 [facility] [place]., [address] Urine 10/02/2025 11:3 0 AM RANGE OPERATOR 10/02/2025 3:07 PM RANGE OPERATOR Narrative [facility] ([place]) - 10/03/2025 5:29 PM RANGE OPERATOR Urine culture reflexed based upon urinalysis results. Testing performed by [facility] Microbiology Laboratory ([phone]) Herminia Aceves MD LAB MICROBIOLOGY - GENERAL OR DERABLES Final Result Performing Organization Address [facility]/ZIP Co de Phone Number [facility] ([place]) 1 [facility] [place] [address] * POCT glucose (10/02/2025 11:21 AM RANGE OPERATOR) Glucose, POC 80 70 - 199 mg/dL Blood 10/02/2025 11:2 1 AM RANGE OPERATOR 10/02/2025 11:21 AM RANGE OPERATOR Faith Hightower MD LAB POCT ORDERABLES - DEVICE Final Result [facility] ([place]) 1 [facility] [place] [address] * US Scrotum W Complete Doppler (C) (10/02/2025 8:41 AM RANGE OPERATOR) Anatomical Region Laterality Modality Testis N/A Ultrasound 10/02/2025 8:54 AM RANGE OPERATOR Impressions 10/02/2025 8:54 AM RANGE OPERATOR 1. No evidence of testicular torsion. 2. Scrotal wall swelling. 3. 1.5 cm septated cyst or cluster of cysts in the right epididymal head. 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 Electronically signed by: Wilian Woods M.D. Narrative 10/02/2025 8:54 AM RANGE OPERATOR EXAMINATION: 1. SCROTAL SONOGRAM 2. SCROTAL DOPPLER HISTORY: Scrotal swelling for one month, improved. COMPARISON: None FINDINGS: SCROTAL SONOGRAM: The testes are normal in size and appearance. The right testis measures 4.0, 1.9. 2.5 cm and the left measures 3.8 2.1, 2.4 cm . No focal lesions are seen. In the right epididymis there is a septated cyst or cluster of adjacent cysts measuring 1.5 x 1.1 x 1.1 cm in aggregate. There is a 4 mm cyst in the left epididymal head. No abnormal scrotal masses or fluid collections are seen. (Comment on the presence or absence of a varicocele). There is scrotal wall thickening. There is bilateral ectasia of the rete testis. SCROTAL DOPPLER: Color Doppler and spectral analysis were used to evaluate the scrotal contents. Blood flow is readily detectable in both the right and left testis and appears symmetric bilaterally. Arterial waveforms are present bilaterally. Venous waveforms are detectable on both sides. There is no evidence of hyperemia in either the right or left epididymis. Procedure Note Wilian Woods MD - 10/02/2025 EXAMINATION: 1. SCROTAL SONOGRAM 2. SCROTAL DOPPLER HISTORY: Scrotal swelling for one month, improved. COMPARISON: None FINDINGS: SCROTAL SONOGRAM: The testes are normal in size and appearance. The right testis measures 4.0, 1.9. 2.5 cm and the left measures 3.8 2.1, 2.4 cm . No focal lesions are seen. In the right epididymis there is a septated cyst or cluster of adjacent cysts measuring 1.5 x 1.1 x 1.1 cm in aggregate. There is a 4 mm cyst in the left epididymal head. No abnormal scrotal masses or fluid collections are seen. (Comment on the presence or absence of a varicocele). There is scrotal wall thickening. There is bilateral ectasia of the rete testis. SCROTAL DOPPLER: Color Doppler and spectral analysis were used to evaluate the scrotal contents. Blood flow is readily detectable in both the right and left testis and appears symmetric bilaterally. Arterial waveforms are present bilaterally. Venous waveforms are detectable on both sides. There is no evidence of hyperemia in either the right or left epididymis. IMPRESSION: 1. No evidence of testicular torsion. 2. Scrotal wall swelling. 3. 1.5 cm septated cyst or cluster of cysts in the right epididymal head. 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 Electronically signed by: Wilian Woods M.D. us Yang Arroyo NP IMG US PROCEDURES Final Resu lt * (ABNORMAL) POCT glucose (10/02/2025 7:23 AM RANGE OPERATOR) Glucose, POC 267(H) 70 - 199 mg/dL Blood 10/02/2025 7:23 AM RANGE OPERATOR 10/02/2025 7:23 AM RANGE OPERATOR us Faith Hightower MD LAB POCT ORDERABLES - DEVICE Final Result [facility]) 4 [facility] [place] [address] * (ABNORMAL) eGFR (10/02/2025 3:53 AM RANGE OPERATOR) eGFR 13(L) >=60 mL/min/1. 73 m2 Comment: Interpretive Data [...] interpretive data was last reviewed 2021. Blood 10/02/2025 3:53 AM RANGE OPERATOR 10/02/2025 5:02 AM RANGE OPERATOR Herminia Aceves MD LAB BLOOD ORDERABLES Final Re sult [facility] ([place]) 1 [facility] [place] [address] * (ABNORMAL) Erythrocyte sedimentation rate (10/02/2025 3:53 AM RANGE OPERATOR) Erythrocyte sedimentation rate 62(H) 1 - 20 mm/hr Blood 10/02/2025 3:53 AM RANGE OPERATOR 10/02/2025 10:12 AM RANGE OPERATOR Herminia Aceves MD LAB BLOOD ORDERABLES Final Re sult Performing Organization Address City/[facility]/ZIP Co de Phone Number [facility] ([place]) 1 [facility] [place] [address] * (ABNORMAL) CBC without differential (10/02/2025 3:53 AM RANGE OPERATOR) WBC 9.97(H) 3.80 - 9.90 K/cumm Hgb 8.3(L) 13.0 - 17.5 g/dL [facility] ([place]) Hct 27.0(L) 38.9 - 50.3 % [facility] ([place]) Plt 207 150 - 400 K/cumm [facility] ([place]) MPV 11.0 9.1 - 12.3 fL [facility] ([place]) RBC 3.04(L) 4.30 - 5.80 M/cumm [facility] ([place]) MCV 88.8 81.3 - 96.4 fL [facility] ([place]) MCH 27.3 27.1 - 33.3 pg [facility] ([place]) MCHC 30.7(L) 32.3 - 35.7 g/dL [facility] ([place]) RDW CV 14.0 11.1 - 14.9 % [facility] ([place]) RDW SD 45.7 35.7 - 48.1 fL [facility] ([place]) NRBC abs 0.00 0.00 - 0.01 K/cumm [facility] ([place]) Blood 10/02/2025 3:53 AM RANGE OPERATOR 10/02/2025 5:02 AM RANGE OPERATOR Marc PALACIOS LAB BLOOD ORDERABLES Final Result Performing Organization Address [facility]/ZIP Co de Phone Number [facility] ([place]) 1 [facility] [place] [place] [address] * C3 complement (10/02/2025 3:53 AM RANGE OPERATOR) Pathologist [facility] Complement C3 161 90 - 180 mg/dL Comment:Testing performed by : [facility], [address] [place] [address], [facility] Blood 10/02/2025 3:53 AM RANGE OPERATOR 10/02/2025 1:57 PM RANGE OPERATOR us Herminia Aceves MD LAB BLOOD ORDERABLES Final Re sult Performing Organization Address [facility]/ZIP Co de Phone Number [facility] ([place]) 1 [facility] [place] [address] * (ABNORMAL) Renal function panel (10/02/2025 3:53 AM RANGE OPERATOR) Sodium 141 135 - 145 mmol/L Potassium, pl 4.1 3.3 - 4.9 mmol/L [facility] ([place]) Chloride 104 97 - 110 mmol/L [facility] ([place]) CO2 24 22 - 32 mmol/L [facility] ([place]) Anion gap 13 2 - 15 mmol/L [facility] ([place]) BUN 74(H) 6 - 25 mg/dL [facility] ([place]) Creatinine 4.46(H) 0.80 - 1.30 mg/dL [facility] ([place]) Glucose 168 70 - 199 mg/dL [facility] ([place]) [...] classification and Diagnosis of Diabetes Diabetes Care 2021; 46: S19-S40. Current interpretive data was last revised 2022. Calcium 8.8 8.5 - 10.3 mg/dL [facility] ([place]) Phosphorus, pl 5.3(H) 2.3 - 4.5 mg/dL [facility] ([place]) Albumin 3.3(L) 3.5 - 5.0 g/dL [facility] ([place]) Blood 10/02/2025 3:53 AM RANGE OPERATOR 10/02/2025 5:02 AM RANGE OPERATOR us Herminia Aceves MD LAB BLOOD ORDERABLES Final Re sult Performing Organization Address City/[facility]/ZIP Co de Phone Number [facility] ([facility]) 1 [facility] [place] [address] * POCT glucose (10/02/2025 2:00 AM RANGE OPERATOR) Glucose, POC 197 70 - 199 mg/dL Blood 10/02/2025 2:00 AM RANGE OPERATOR 10/02/2025 2:00 AM RANGE OPERATOR us Faith Hightower MD LAB POCT ORDERABLES - DEVICE Final Result Performing Organization Address City/[facility]/ZIP Co de Phone Number [facility] ([place]) 1 [facility] [employer] [place] [address] * POCT glucose (10/01/2025 7:25 PM RANGE OPERATOR) Glucose, POC 144 70 - 199 mg/dL Blood 10/01/2025 7:25 PM RANGE OPERATOR 10/01/2025 7:25 PM RANGE OPERATOR us Faith Hightower MD LAB POCT ORDERABLES - DEVICE Final Result BRETT GOME[facility] ([place]) 1 [facility] Department [place] [address] * CT Chest WO Contrast (10/01/2025 4:52 PM RANGE OPERATOR) Anatomical Region Laterality Modality Body N/A Computed Tomogra phy 10/01/2025 6:22 PM RANGE OPERATOR Impressions 10/01/2025 6:22 PM RANGE OPERATOR 1. No evidence of thoracic metastatic disease. 2. Trace bilateral pleural effusions. Bilateral lower lobe atelectasis. Electronically signed by: Carlos Rausch M.D. Narrative 10/01/2025 6:22 PM RANGE OPERATOR EXAMINATION: CT CHEST WO CONTRAST HISTORY: s/p prostatectomy elevated psa.assessing for mets. TECHNIQUE: CT scan of the chest without intravenous contrast. Reconstructed coronal and sagittal MPR images reviewed. All images stored on PACS. Automated exposure control was used as a dose optimization technique for this examination. COMPARISON: CT chest 12/25/2022 FINDINGS: HEART: Normal heart size without pericardial effusion. VASCULATURE: No thoracic aortic aneurysm. MEDIASTINUM/JOYCELYN: No identified masses. No abnormal lymph nodes by size criteria. LUNGS/PLEURA: Trace bilateral pleural effusions and lower lobe atelectasis. No suspicious pulmonary nodules. Stable bleb along the inferior left major fissure. AXILLA: No adenopathy. CHEST WALL: No masses. No soft tissue gas. HARDWARE/LINES/TUBES: None. UPPER ABDOMEN: Cholelithiasis. MUSCULOSKELETAL: No acute fracture. No lytic or sclerotic osseous lesions. OTHER: No other acute abnormality. Procedure Note Carlos Rausch MD - 10/01/2025 EXAMINATION: CT CHEST WO CONTRAST HISTORY: s/p prostatectomy elevated psa.assessing for mets. TECHNIQUE: CT scan of the chest without intravenous contrast. Reconstructed coronal and sagittal MPR images reviewed. All images stored on PACS. Automated exposure control was used as a dose optimization technique for this examination. COMPARISON: CT chest 12/25/2022 FINDINGS: HEART: Normal heart size without pericardial effusion. VASCULATURE: No thoracic aortic aneurysm. MEDIASTINUM/JOYCELYN: No identified masses. No abnormal lymph nodes by size criteria. LUNGS/PLEURA: Trace bilateral pleural effusions and lower lobe atelectasis. No suspicious pulmonary nodules. Stable bleb along the inferior left major fissure. AXILLA: No adenopathy. CHEST WALL: No masses. No soft tissue gas. HARDWARE/LINES/TUBES: None. UPPER ABDOMEN: Cholelithiasis. MUSCULOSKELETAL: No acute fracture. No lytic or sclerotic osseous lesions. OTHER: No other acute abnormality. IMPRESSION: 1. No evidence of thoracic metastatic disease. 2. Trace bilateral pleural effusions. Bilateral lower lobe atelectasis. Electronically signed by: Carlos Rausch M.D. Yang Arroyo UROGYNECOLOGY PHYSICIAN IMG CT PROCEDURES Final Resu lt * (ABNORMAL) POCT glucose (10/01/2025 3:57 PM RANGE OPERATOR) Glucose, POC 209(H) 70 - 199 mg/dL Blood 10/01/2025 3:57 PM RANGE OPERATOR 10/01/2025 3:57 PM RANGE OPERATOR Faith Hightower MD LAB POCT ORDERABLES - DEVICE Final Result Performing Organization Address [facility] Co de Phone Number BRETT JASON ([place]) 1 [facility] [place] [address] * POCT glucose (10/01/2025 11:29 AM RANGE OPERATOR) Glucose, POC 180 70 - 199 mg/dL Blood 10/01/2025 11:2 9 AM RANGE OPERATOR 10/01/2025 11:29 AM RANGE OPERATOR Faith Hightower MD LAB POCT ORDERABLES - DEVICE Final Result Performing Organization Address [facility] Co de Phone Number BRETT GOMEZ ([place]) 1 [facility] [place] [address] * POCT glucose (10/01/2025 7:19 AM RANGE OPERATOR) Pathologist [facility] Glucose, POC 164 70 - 199 mg/dL Blood 10/01/2025 7:19 AM RANGE OPERATOR 10/01/2025 7:19 AM RANGE OPERATOR us Faith Hightower MD LAB POCT ORDERABLES - DEVICE Final Result BRETT GOMEZ ([place]) 1 [facility] [place] [address] * (ABNORMAL) eGFR (10/01/2025 3:47 AM RANGE OPERATOR) [facility] eGFR 14(L) >=60 mL/min/1. 73 m2 Comment: Interpretive Data [...] interpretive data was last reviewed 2021. Blood 10/01/2025 3:47 AM RANGE OPERATOR 10/01/2025 5:04 AM RANGE OPERATOR us Marquita Asencio MD LAB BLOOD ORDERABLES Final Resu lt [facility]TT GOME[facility] ([place]) 1 [facility] [place] [address] * (ABNORMAL) Pro B-type natriuretic peptide (10/01/2025 3:47 AM RANGE OPERATOR) NT-proBNP 6,452(H) <=450 pg/mL Comment: Interpretive Comments: A. Dyspnea in Acute Care Setting All Ages: < 300 pg/ml, acute heart failure unlikely. < 50 yrs: 300 - 450 pg/ml, further investigation warranted. > 450 pg/ml, acute heart failure likely. 50 - 74 yrs: 300 - 900 pg/ml, further investigation warranted. > 900 pg/ml, acute heart failure likely . > or = 75 yrs: 450 - 1800 pg/ml, further investigation warranted. > 1800 pg/ml, acute heart failure likely. B. Non-acute Setting < 75 yrs < 125 pg/ml, rules out heart failure. > or = 125 pg/ml, further investigation warranted. > or = 75 yrs < 450 pg/ml, rules out heart failure. > or = 450 pg/ml, further investigation warranted. - Knowledge of each individual patient's NT-proBNP range may be more useful than using similar cut-points for every patient. Please note that marked elevations in NT-proBNP levels may be observed in state other than Left Ventricular Congestive Failure, including: acute coronary syndromes, right heart strain/failure (including pulmonary embolism and cor pulmonale), critical illness, renal failure, as well as advanced age. - References: 1. Vira BA et.al. Eur Heart J. 2006:27:330-337. 2. Zenia RW, Aicha AM. J. AM Martinez Cardiol: Cardiovasc Imag. 2009;2: 216- 225. Interpretive Data Last Revised Date: 2018. Blood 10/01/2025 3:47 AM RANGE OPERATOR 10/01/2025 5:05 AM RANGE OPERATOR us Marquita Asencio MD LAB BLOOD ORDERABLES Final Resu lt [facility] 1 [facility] Department [place] [address] * (ABNORMAL) CBC without differential (10/01/2025 3:47 AM RANGE OPERATOR) WBC 9.08 3.80 - 9.90 K/cumm Hgb 8.6(L) 13.0 - 17.5 g/dL [facility] ([place]) Hct 27.9(L) 38.9 - 50.3 % [facility] ([place]) Plt 216 150 - 400 K/cumm [facility] ([place]) MPV 11.3 9.1 - 12.3 fL [facility] ([place]) RBC 3.10(L) 4.30 - 5.80 M/cumm [facility] ([place]) MCV 90.0 81.3 - 96.4 fL [facility] ([place]) MCH 27.7 27.1 - 33.3 pg [facility] ([place]) MCHC 30.8(L) 32.3 - 35.7 g/dL [facility] ([place]) RDW CV 14.1 11.1 - 14.9 % [facility] ([place]) RDW SD 45.6 35.7 - 48.1 fL [facility] ([place]) NRBC abs 0.00 0.00 - 0.01 K/cumm [facility] ([place]) Blood 10/01/2025 3:47 AM RANGE OPERATOR 10/01/2025 5:04 AM RANGE OPERATOR Marc PALACIOS LAB BLOOD ORDERABLES Final Result [facility] ([place]) 1 [facility] Department [place] [address] * (ABNORMAL) PSA diagnostic (10/01/2025 3:47 AM RANGE OPERATOR) PSA-Total 7.80(H) <=6.20 ng/mL Comment: Interpretive Data AGE SEX REFERENCE INTERVAL 0 minutes-150 years Female None 0 minutes-49 years Male None 50-59 years Male 0-3.90 60-69 years Male 0-5.40 70-79 years Male 0-6.20 80-150 years Male 0-6.20 The [employer] PSA Total assay procedure was used. Results from different manufacturers or methods may not be comparable. Serial testing should be performed using the same method. Current interpretive data last revised 22. Blood 10/01/2025 3:47 AM RANGE OPERATOR 10/01/2025 9:40 AM RANGE OPERATOR us Yang Arroyo NP LAB BLOOD ORDERABLES Final R esult Performing Organization Address City/[facility]/ZIP Co de Phone Number [facility]TT G[facility] ([place]) 1 [facility] [place] [address] * (ABNORMAL) Phosphorus (10/01/2025 3:47 AM RANGE OPERATOR) Phosphorus, pl 6.1(H) 2.3 - 4.5 mg/dL Blood 10/01/2025 3:4 7 AM RANGE OPERATOR 10/01/2025 5:04 AM RANGE OPERATOR us Marquita Asencio MD LAB BLOOD ORDERABLES Final Resu lt Performing Organization Address [facility] Co de Phone Number BRETT GOMEZ ([place]) 1 [facility] [place] [address] * (ABNORMAL) Comprehensive metabolic panel (10/01/2025 3:47 AM RANGE OPERATOR) Sodium 141 135 - 145 mmol/L Potassium, pl 5.1(H) 3.3 - 4.9 mmol/L [facility] ([place]) Chloride 109 97 - 110 mmol/L [facility] ([place]) CO2 16(L) 22 - 32 mmol/L [facility] ([place]) Anion gap 16(H) 2 - 15 mmol/L [facility] ([place]) BUN 66(H) 6 - 25 mg/dL [facility] ([place]) Creatinine 4.26(H) 0.80 - 1.30 mg/dL [facility] ([place]) Glucose 151 70 - 199 mg/dL [facility] ([place]) [...] classification and Diagnosis of Diabetes Diabetes Care 2021; 46: S19-S40. Current interpretive data was last revised 2022. Calcium 9.2 8.5 - 10.3 mg/dL [facility] ([place]) Bilirubin, total 0.2 0.1 - 1.2 mg/dL [facility] ([place]) Protein, pl 6.6 6.5 - 8.5 g/dL [facility] ([place]) Albumin 3.3(L) 3.5 - 5.0 g/dL [facility] ([place]) Alk phos 92 40 - 130 Units/L [facility] ([place]) ALT 13 7 - 55 Units/L [facility] ([place]) AST 13 10 - 50 Units/L [facility] ([place]) Blood 10/01/2025 3:47 AM RANGE OPERATOR 10/01/2025 5:04 AM RANGE OPERATOR us Marquita Asencio MD LAB BLOOD ORDERABLES Final Resu lt [facility]TT [facility] ([place]) 1 [facility] [place] [address] * POCT glucose (10/01/2025 3:10 AM RANGE OPERATOR) Glucose, POC 157 70 - 199 mg/dL Blood 10/01/2025 3:10 AM RANGE OPERATOR 10/01/2025 3:10 AM RANGE OPERATOR Faith Hightower MD LAB POCT ORDERABLES - DEVICE Final Result Performing Organization Address City/[facility]/ZIP Co de Phone Number BRETT GOMEZ ([place]) 1 [facility] [place] [address] * POCT glucose (09/30/2025 7:54 PM RANGE OPERATOR) Glucose, POC 198 70 - 199 mg/dL Blood 09/30/2025 7:54 PM RANGE OPERATOR 09/30/2025 7:54 PM RANGE OPERATOR us Faith Hightower MD LAB POCT ORDERABLES - DEVICE Final Result Performing Organization Address [facility] Co de Phone Number BRETT GOMEZ ([place]) 1 [facility] [place] [address] * (ABNORMAL) POCT glucose (09/30/2025 5:05 PM RANGE OPERATOR) Glucose, POC 236(H) 70 - 199 mg/dL Blood 09/30/2025 5:05 PM RANGE OPERATOR 09/30/2025 5:05 PM RANGE OPERATOR Faith Hightower MD LAB POCT ORDERABLES - DEVICE Final Result Performing Organization Address [facility] de Phone Number BRETT GOMEZ ([place]) 1 [facility] [place] [address] * POCT glucose (09/30/2025 1:07 PM RANGE OPERATOR) Glucose, POC 126 70 - 199 mg/dL Blood 09/30/2025 1:07 PM RANGE OPERATOR 09/30/2025 1:07 PM RANGE OPERATOR Faith Hightower MD LAB POCT ORDERABLES - DEVICE Final Result Performing Organization Address [facility] de Phone Number BRETT GOMEZ ([place]) 1 [facility] [place] [address] * [place] Fluoroscopy < 1 Hour (09/30/2025 12:50 PM RANGE OPERATOR) Narrative RAD_PACS_JASON - 09/30/2025 12:52 PM RANGE OPERATOR The images from this study are not interpreted by Radiology. Please refer to the physician's procedure / OR operative note. us Oscar Alcazar MD IMG FLUOROSCOPY PROCEDURES Final Result Performing Organization Address [facility] Co de Phone Number RAD_PACS_[facility] * Urine culture Urine, cystoscopic Ureter, right (09/30/2025 12:36 PM RANGE OPERATOR) Report Final Report: No growth Comment:Testing performed by : [facility], [address] [facility] [place] [address] Urine, cystoscopic (Ureter, right) 09/30/2025 12:36 PM RANGE OPERATOR 09/30/2025 5:07 PM RANGE OPERATOR Narrative BRETT GOMEZ ([place]) - 10/02/2025 6:23 PM RANGE OPERATOR Indications for Culture:->Urology patient Testing performed by [facility] ([phone]) Oscar Alcazar MD LAB MICROBIOLOGY - GENERAL ORDER MARIAH Final Result BRETT JASON ([place]) 1 [facility] [place] [address] * [place] AN ELECTIVE SUPRAGLOTTIC AIRWAY (09/30/2025 12:16 PM RANGE OPERATOR) Narrative Florentin Alejandra CRNA - 09/30/2025 12:16 PM RANGE OPERATOR Florentin Alejandra CRNA 09/30/2025 12:16 PM Airway Patient location: OR Urgency: elective Indications for airway management: anesthesia Difficult airway: no Staff: Placed by: SOUND INSTALLATION WORKER: Florentin Alejandra CRNA Emergent airway documentation: Risks and benefits discussed: yes Consent obtained: yes Consent given by: patient Airway prep: Preoxygenated: yes Patient position: sniffing Mask difficulty assessment: 0 - not attempted Spontaneous ventilation during airway: absent Sedation level during airway: GA Final airway details: Final airway type: supraglottic airway Final supraglottic airway: IGel SGA size: 4 Number of attempts: 1 Ventilation between attempts: none Additional comments: Atraumatic LMA placement. us Farhat Cabrera DO ANESTHESIA ORDERABL ES Final Result * POCT glucose (09/30/2025 11:32 AM RANGE OPERATOR) Glucose, POC 124 70 - 199 mg/dL Blood 09/30/2025 11:3 2 AM RANGE OPERATOR 09/30/2025 11:32 AM RANGE OPERATOR Faith Hightower MD LAB POCT ORDERABLES - DEVICE Final Result BRETT GOMEZ ([place]) 1 [facility] [place] [address] * POCT glucose (09/30/2025 8:04 AM RANGE OPERATOR) Glucose, POC 164 70 - 199 mg/dL Blood 09/30/2025 8:04 AM RANGE OPERATOR 09/30/2025 8:04 AM RANGE OPERATOR Faith Hightower MD LAB POCT ORDERABLES - DEVICE Final Result Performing Organization Address City/[facility] Co de Phone Number BRETT GOMEZ ([place]) [address] [facility] [place] [address] * (ABNORMAL) eGFR (09/30/2025 3:56 AM RANGE OPERATOR) eGFR 14(L) >=60 mL/min/1. 73 m2 Comment: Interpretive Data [...] interpretive data was last reviewed 2021. Blood 09/30/2025 3:56 AM RANGE OPERATOR 09/30/2025 4:31 AM RANGE OPERATOR Marquita Asencio MD LAB BLOOD ORDERABLES Final Resu lt [facility]) 1 [facility] Department [place] [address] * (ABNORMAL) Pro B-type natriuretic peptide (09/30/2025 3:56 AM RANGE OPERATOR) NT-proBNP 6,743(H) <=450 pg/mL Comment: Interpretive Comments: A. Dyspnea in Acute Care Setting All Ages: < 300 pg/ml, acute heart failure unlikely. < 50 yrs: 300 - 450 pg/ml, further investigation warranted. > 450 pg/ml, acute heart failure likely. 50 - 74 yrs: 300 - 900 pg/ml, further investigation warranted. > 900 pg/ml, acute heart failure likely . > or = 75 yrs: 450 - 1800 pg/ml, further investigation warranted. > 1800 pg/ml, acute heart failure likely. B. Non-acute Setting < 75 yrs < 125 pg/ml, rules out heart failure. > or = 125 pg/ml, further investigation warranted. > or = 75 yrs < 450 pg/ml, rules out heart failure. > or = 450 pg/ml, further investigation warranted. - Knowledge of each individual patient's NT-proBNP range may be more useful than using similar cut-points for every patient. Please note that marked elevations in NT-proBNP levels may be observed in state other than Left Ventricular Congestive Failure, including: acute coronary syndromes, right heart strain/failure (including pulmonary embolism and cor pulmonale), critical illness, renal failure, as well as advanced age. - References: 1. Vira BA et.al. Eur Heart J. 2006:27:330-337. 2. Zenia RW, Aicha AM. J. AM Martinez Cardiol: Cardiovasc Imag. 2009;2: 216- 225. Interpretive Data Last Revised Date: 2018. Blood 09/30/2025 3:56 AM RANGE OPERATOR 09/30/2025 4:31 AM RANGE OPERATOR us Marquita Asencio MD LAB BLOOD ORDERABLES Final Resu lt [facility] ([place]) 1 [facility] [place] [address] * (ABNORMAL) CBC without differential (09/30/2025 3:56 AM RANGE OPERATOR) WBC 9.64 3.80 - 9.90 K/cumm Hgb 8.5(L) 13.0 - 17.5 g/dL [facility] ([place]) Hct 28.0(L) 38.9 - 50.3 % [facility] ([place]) Plt 194 150 - 400 K/cumm [facility] ([place]) MPV 11.1 9.1 - 12.3 fL [facility] ([place]) RBC 3.07(L) 4.30 - 5.80 M/cumm [facility] ([place]) MCV 91.2 81.3 - 96.4 fL [facility] ([place]) MCH 27.7 27.1 - 33.3 pg [facility] ([place]) MCHC 30.4(L) 32.3 - 35.7 g/dL [facility] ([place]) RDW CV 14.1 11.1 - 14.9 % [facility] ([place]) RDW SD 46.7 35.7 - 48.1 fL [facility] ([place]) NRBC abs 0.00 0.00 - 0.01 K/cumm [facility] ([place]) Blood 09/30/2025 3:56 AM RANGE OPERATOR 09/30/2025 4:31 AM RANGE OPERATOR us Marc PALACIOS LAB BLOOD ORDERABLES Final Result BRETT [facility] ([place]) 1 [facility] [place] [address] * (ABNORMAL) Phosphorus (09/30/2025 3:56 AM RANGE OPERATOR) Phosphorus, pl 6.4(H) 2.3 - 4.5 mg/dL Blood 09/30/2025 3:56 AM RANGE OPERATOR 09/30/2025 4:31 AM RANGE OPERATOR us Marquita Asencio MD LAB BLOOD ORDERABLES Final Resu lt [facility] ([place]) 1 [facility] Department [place] [address] * (ABNORMAL) Comprehensive metabolic panel (09/30/2025 3:56 AM RANGE OPERATOR) Sodium 140 135 - 145 mmol/L Potassium, pl 5.1(H) 3.3 - 4.9 mmol/L [facility] ([place]) Chloride 108 97 - 110 mmol/L [facility] ([place]) CO2 19(L) 22 - 32 mmol/L [facility] ([place]) Anion gap 13 2 - 15 mmol/L [facility] ([place]) BUN 64(H) 6 - 25 mg/dL [facility] ([place]) Creatinine 4.29(H) 0.80 - 1.30 mg/dL [facility] ([place]) Glucose 140 70 - 199 mg/dL [facility] ([place]) [...] classification and Diagnosis of Diabetes Diabetes Care 2021; 46: S19-S40. Current interpretive data was last revised 2022. Calcium 9.1 8.5 - 10.3 mg/dL [facility] ([place]) Bilirubin, total 0.2 0.1 - 1.2 mg/dL [facility] ([place]) Protein, pl 6.3(L) 6.5 - 8.5 g/dL [facility] ([place]) Albumin 3.3(L) 3.5 - 5.0 g/dL [facility] ([place]) Alk phos 98 40 - 130 Units/L [facility] ([place]) ALT 17 7 - 55 Units/L [facility] ([place]) AST 14 10 - 50 Units/L [facility] ([place]) Blood 09/30/2025 3:56 AM RANGE OPERATOR 09/30/2025 4:31 AM RANGE OPERATOR us Marquita Asencio MD LAB BLOOD ORDERABLES Final Resu lt Performing Organization Address City/[facility]/ZIP Co de Phone Number BRETT GOME[facility] ([place]) 1 [facility] [place] [address] * POCT glucose (09/30/2025 2:58 AM RANGE OPERATOR) Glucose, POC 138 70 - 199 mg/dL Blood 09/30/2025 2:58 AM RANGE OPERATOR 09/30/2025 2:58 AM RANGE OPERATOR us Faith Hightower MD LAB POCT ORDERABLES - DEVICE Final Result Performing Organization Address City/[facility]/ZIP Co de Phone Number BRETT GOMEZ ([place]) 1 [facility] [place] [address] * POCT glucose (09/29/2025 7:59 PM RANGE OPERATOR) Glucose, POC 142 70 - 199 mg/dL Blood 09/29/2025 7:59 PM RANGE OPERATOR 09/29/2025 7:59 PM RANGE OPERATOR Faith Hightower MD LAB POCT ORDERABLES - DEVICE Final Result Performing Organization Address City/[facility]/ZIP Co de Phone Number BRETT GOMEZ ([place]) [address] [facility] [place] [address] * POCT glucose (09/29/2025 4:40 PM RANGE OPERATOR) Glucose, POC 117 70 - 199 mg/dL Blood 09/29/2025 4:40 PM RANGE OPERATOR 09/29/2025 4:40 PM RANGE OPERATOR us Faith Hightower MD LAB POCT ORDERABLES - DEVICE Final Result [facility] ([place]) 1 [facility] [place] [address] * (ABNORMAL) Urinalysis reflex to microscopic and culture Urine (09/29/2025 4:26 PM RANGE OPERATOR) Color, ur Yellow Yellow Clarity, ur Clear Clear [facility] ([place]) Specific gravity, ur 1.015 1.003 - 1.030 [facility] ([place]) pH, urine 5.0 [facility] ([place]) Comment: Interpretive Data U rine pH is affected by diet, medications, systemic acid-base disturbances, and renal tubular function. pH may affect urinary stone formation. For example, urine pH below 6.0 may help reduce the tendency for calcium phosphate stones and pH greater than 6.0 may reduce the tendency for uric acid stone formation. Source: [facility] [place] Current Interpretive Data was last revised on 2017 Protein, ur ql 1+(A) Negative [facility] ([place]) Glucose, ur ql Negative Negative [facility] ([place]) Ketones, ur Negative Negative [facility] ([place]) Bilirubin, ur Negative Negative [facility] ([place]) Blood, ur Trace(A) Negative [facility] ([place]) Urobilinogen, ur <2.0 <2.0 mg/dL [facility] ([place]) Nitrite, ur Negative Negative [facility] ([place]) Leukocyte esterase, ur Negative Negative [facility] ([place]) UA reflex comment Reflex to microscopic UA will be performed. [facility] ([place]) Urine 09/29/2025 4:26 PM RANGE OPERATOR 09/29/2025 4:33 PM RANGE OPERATOR us Herminia Aceves MD LAB MICROBIOLOGY - GENERAL OR DERABLES Final Result [facility] ([place]) 1 [facility] Department [place] [address] * Sodium, urine, random (09/29/2025 4:26 PM RANGE OPERATOR) Sodium, ur 89 mmol/L Comment: Interpretive Data No reference range established. Current interpretive data was last revised 2019. Urine 09/29/2025 4:26 PM RANGE OPERATOR 09/29/2025 7:33 PM RANGE OPERATOR Narrative [facility] ([place]) - 09/29/2025 7:35 PM RANGE OPERATOR No normal range Herminia Aceves MD LAB URINE ORDERABLES Final Re sult Performing Organization Address [facility]/ZIP Co de Phone Number [facility] ([place]) [address] [place] [phone] * (ABNORMAL) Urinalysis, microscopic only (09/29/2025 4:26 PM RANGE OPERATOR) Pathologist [facility] WBC, ur 0-5 0 - 5 /HPF RBC, ur 0-2 0 - 2 /HPF [facility] ([place]) Mucous, ur Present(A) [facility] ([place]) Culture Reflex Comment Reflex conditions for urine culture (WBC >10) not met. [facility] ([place]) Urine 09/29/2025 4:26 PM RANGE OPERATOR 09/29/2025 4:33 PM RANGE OPERATOR Herminia Aceves MD LAB URINE ORDERABLES Final Re sult Performing Organization Address [facility] Co de Phone Number [facility] ([place]) [address] [place] [phone] * TRANSTHORACIC ECHO (TTE) LIMITED/FOLLOW UP W LTD DOPPLER/CF WO CONTRAST (09/29/2025 1:21 PM RANGE OPERATOR) Pathologist [facility] EF Mod BP 62 % CONS SCIMAGE Anatomical Region Laterality Modality Ultrasound 09/29/2025 1:37 PM RANGE OPERATOR Narrative 09/29/2025 3:06 PM RANGE OPERATOR [address] [place] [address] Limited Echocardiogram Report Patient Name: MONICO GLEASON D : 1945 Study Date: 09/29/2025 1:37:11 PM Sex: M Tech: Location: [place] [address] Ref Provider: MARQUITA ASENCIO Height(Cm): BSA: Weight(Kg): Quality: Good PROCEDURES: Echocardiographic Report: Limited transthoracic echocardiogram with 2D and M-Mode. INDICATIONS: Congestive Heart Failure. MEASUREMENTS: 2D/MM Value Range Doppler Value Range EF Mod BP 62 % [ 52 - 72 ] TR Peak Gage 2.65 m/s [ 1.00 - 2.80 ] TR Peak PG 28 mmHg RVSP 33.00 mmHg [ 10.00 - 36.00 ] PA Pressure 5.00 mmHg [ 10.00 - 36.00 ] 2D/MM Value Range Doppler Value Range - FINDINGS: Left Ventricle: Normal left ventricular systolic function with no focal wall motion abnormalities. Normal left ventricular size. Left ventricular wall thickness upper limits of normal. Ejection fraction is measured at 62 %. Right Ventricle: Normal right ventricular size. Normal right ventricular systolic function. Aortic Valve: Aortic cusps appear mildly sclerotic. Mitral Valve: Mitral valve leaflets appear mildly thickened. Mild mitral annular calcification. Pericardium: Normal pericardium with no significant pericardial effusion. CONCLUSIONS: Normal left ventricular systolic function with no focal wall motion abnormalities. Normal left ventricular size. Left ventricular wall thickness upper limits of normal. Ejection fraction is measured at 62 %. Normal right ventricular size. Normal right ventricular systolic function. Mitral valve leaflets appear mildly thickened. Mild mitral annular calcification. Aortic cusps appear mildly sclerotic. Normal pericardium with no significant pericardial effusion. This is a limited echocardiographic study. Electronically Signed By: Mignon Burt MD 09/29/2025 3:06:31 PM RANGE OPERATOR Procedure Note Mignon Burt MD - 09/29/[address] [place] [address] Limited Echocardiogram Report Patient Name: MONICO GLEASON D : 1945 Study Date: 09/29/2025 1:37:11 PM Sex: M Tech: AA Location: [place] [address] Ref Provider: MARQUITA ASENCIO Height(Cm): BSA: Weight(Kg): Quality: Good PROCEDURES: Echocardiographic Report: Limited transthoracic echocardiogram with 2D and M-Mode. INDICATIONS: Congestive Heart Failure. MEASUREMENTS: 2D/MM Value Range Doppler Value Range EF Mod BP 62 % [ 52 - 72 ] TR Peak Gage 2.65 m/s [ 1.00 -2.80 ] TR Peak PG 28 mmHg RVSP 33.00 mmHg [ 10.00 - 36.00 ] PA Pressure 5.00 mmHg [ 10.00 - 36.00 ] 2D/MM Value Range Doppler Value Range - FINDINGS: Left Ventricle: Normal left ventricular systolic function with no focal wall motionabnormalities. Normal left ventricular size. Left ventricular wall thickness upper limits ofnormal. Ejection fraction is measured at 62 %. Right Ventricle: Normal right ventricular size. Normal right ventricular systolicfunction. Aortic Valve: Aortic cusps appear mildly sclerotic. Mitral Valve: Mitral valve leaflets appear mildly thickened. Mild mitral annularcalcification. Pericardium: Normal pericardium with no significant pericardial effusion. CONCLUSIONS: Normal left ventricular systolic function with no focal wall motionabnormalities. Normal left ventricular size. Left ventricular wall thickness upper limits ofnormal. Ejection fraction is measured at 62 %. Normal right ventricular size. Normal right ventricular systolicfunction. Mitral valve leaflets appear mildly thickened. Mild mitral annularcalcification. Aortic cusps appear mildly sclerotic. Normal pericardium with no significant pericardial effusion. This is a limited echocardiographic study. Electronically Signed By: Mignon Burt MD 09/29/2025 3:06:31 PM RANGE OPERATOR us Marquita Asencio MD CV ECHO PROCEDURES Final Result * POCT glucose (09/29/2025 11:21 AM RANGE OPERATOR) Glucose, POC 109 70 - 199 mg/dL Blood 09/29/2025 11:2 1 AM RANGE OPERATOR 09/29/2025 11:21 AM RANGE OPERATOR us Faith Hightower MD LAB POCT ORDERABLES - DEVICE Final Result [facility]) 1 [facility] Department [place] [address] * CT Abdomen Pelvis WO Contrast (09/29/2025 11:09 AM RANGE OPERATOR) Anatomical Region Laterality Modality Body N/A Computed Tomogra phy 09/29/2025 11:2 2 AM RANGE OPERATOR Impressions 09/29/2025 11:22 AM RANGE OPERATOR Right-sided severe hydronephrosis related to obstructing proximal ureteral stone. Electronically signed by: Monico Matta M.D. Narrative 09/29/2025 11:22 AM RANGE OPERATOR EXAMINATION: CT ABDOMEN PELVIS WO CONTRAST ORDERING HEALTHCARE PROVIDER: HERMINIA ACEVES HISTORY: renal calcifications with clovis. TECHNIQUE: CT abdomen and pelvis without intravenous and without oral contrast. Reconstructed coronal and sagittal MPR images reviewed. All images stored on PACS. Automated exposure control was used as a dose optimization technique for this examination. COMPARISON: 11/26/2021 CT abdomen pelvis, 09/29/2025 KUB FINDINGS: The sensitivity for detection of visceral lesions is diminished without the use of intravenous contrast. LOWER CHEST: Subtle linear densities both bases suggesting likely atelectasis, early pneumonitis not excluded. No large effusion. Heart size is enlarged. Mitral valvular, aortic valvular and coronary arterial calcifications are present. LIVER: Normal length. GALLBLADDER: Gallbladder is normally distended containing subcentimeter stone. No surrounding induration. No biliary ductal dilatation. SPLEEN: Normal length. PANCREAS: No peripancreatic inflammation. ADRENALS: No discrete nodules. KIDNEYS/URINARY TRACT: Right kidney demonstrates severe hydronephrosis new from previous. Duplicated collecting system is identified. After it joins the dilated ureter is identified obstructing related to a 1.2 cm stone. Additional calyceal subcentimeter stones are demonstrated. Left kidney demonstrates a renal pelvic stone measuring 1.2 cm without hydronephrosis. Additional calyceal nonobstructing stones are seen. No left-sided hydronephrosis or hydroureter. Urinary bladder is normally distended. No bladder stones. GI: No bowel obstruction. Normal appendix. PERITONEUM: No free intraperitoneal air or ascites. VASCULATURE: No abdominal aortic aneurysm. MUSCULOSKELETAL: No acute findings. OTHER: No other acute findings. Procedure Note Monico Matta MD - 09/29/2025 EXAMINATION: CT ABDOMEN PELVIS WO CONTRAST ORDERING HEALTHCARE PROVIDER: HERMINIA ACEVES HISTORY: renal calcifications with clovis. TECHNIQUE: CT abdomen and pelvis without intravenous and without oral contrast. Reconstructed coronal and sagittal MPR images reviewed. All images stored on PACS. Automated exposure control was used as a dose optimization technique for this examination. COMPARISON: 11/26/2021 CT abdomen pelvis, 09/29/2025 KUB FINDINGS: The sensitivity for detection of visceral lesions is diminished without the use of intravenous contrast. LOWER CHEST: Subtle linear densities both bases suggesting likely atelectasis, early pneumonitis not excluded. No large effusion. Heart size is enlarged. Mitral valvular, aortic valvular and coronary arterial calcifications are present. LIVER: Normal length. GALLBLADDER: Gallbladder is normally distended containing subcentimeter stone. No surrounding induration. No biliary ductal dilatation. SPLEEN: Normal length. PANCREAS: No peripancreatic inflammation. ADRENALS: No discrete nodules. KIDNEYS/URINARY TRACT: Right kidney demonstrates severe hydronephrosis new from previous. Duplicated collecting system is identified. After it joins the dilated ureter is identified obstructing related to a 1.2 cm stone. Additional calyceal subcentimeter stones are demonstrated. Left kidney demonstrates a renal pelvic stone measuring 1.2 cm without hydronephrosis. Additional calyceal nonobstructing stones are seen. No left-sided hydronephrosis or hydroureter. Urinary bladder is normally distended. No bladder stones. GI: No bowel obstruction. Normal appendix. PERITONEUM: No free intraperitoneal air or ascites. VASCULATURE: No abdominal aortic aneurysm. MUSCULOSKELETAL: No acute findings. OTHER: No other acute findings. IMPRESSION: Right-sided severe hydronephrosis related to obstructing proximal ureteral stone. Electronically signed by: Monico Matta M.D. Herminia Aceves MD IMG CT PROCEDURES Final Resul t * US Kidney Complete (09/29/2025 9:52 AM RANGE OPERATOR) Anatomical Region Laterality Modality Kidney N/A Ultrasound 09/29/2025 9:59 AM RANGE OPERATOR Impressions 09/29/2025 9:59 AM RANGE OPERATOR 1. Right-sided hydronephrosis. Recommend further evaluation with CT of the abdomen and pelvis. 2. Left renal nonobstructing calculus. 3. Bilateral renal cysts. Electronically signed by: Tony Pineda D.O. Narrative 09/29/2025 9:59 AM RANGE OPERATOR EXAM DESCRIPTION:US KIDNEY COMPLETE REASON FOR STUDY: . arf TECHNIQUE:Ultrasound of the kidneys and urinary bladder was performed with grayscale imaging. COMPARISON: Renal ultrasound dated 01/13/2025, 01/04/[address] abdomen and pelvis dated 09/26/2022. FINDINGS: RIGHT KIDNEY: Right kidney measures up to 16.7 x 7.1 x 6.8 cm. Right-sided hydronephrosis. Rounded hypoechoic to anechoic focus measuring 2.3 x 1.8 x 2.6 cm in keeping with a cyst. LEFT KIDNEY: Left kidney measures up to 10.6 x 5 x 5.4 cm. There is no hydronephrosis. Rounded 2.7 x 1.7 x 2.6 cm focus in keeping with a cyst. Echogenic focus in the left kidney measuring up to 0.9 cm. URINARY BLADDER: Right and left ureteral jets were seen. Procedure Note Tony Pineda DO - 09/29/2025 EXAM DESCRIPTION:US KIDNEY COMPLETE REASON FOR STUDY: . arf TECHNIQUE:Ultrasound of the kidneys and urinary bladder was performed with grayscale imaging. COMPARISON: Renal ultrasound dated 01/13/2025, 01/04/[address] abdomen and pelvis dated 09/26/2022. FINDINGS: RIGHT KIDNEY: Right kidney measures up to 16.7 x 7.1 x 6.8 cm. Right-sided hydronephrosis. Rounded hypoechoic to anechoic focus measuring 2.3 x 1.8 x 2.6 cm in keeping with a cyst. LEFT KIDNEY: Left kidney measures up to 10.6 x 5 x 5.4 cm. There is no hydronephrosis. Rounded 2.7 x 1.7 x 2.6 cm focus in keeping with a cyst. Echogenic focus in the left kidney measuring up to 0.9 cm. URINARY BLADDER: Right and left ureteral jets were seen. IMPRESSION: 1. Right-sided hydronephrosis. Recommend further evaluation with CT of the abdomen and pelvis. 2. Left renal nonobstructing calculus. 3. Bilateral renal cysts. Electronically signed by: Tony Pineda D.O. us Marquita Asencio MD IMG US PROCEDURES Final Result * XR Abdomen 1 View AP (09/29/2025 9:19 AM RANGE OPERATOR) Anatomical Region Laterality Modality Body, Abdomen N/A Computed Radiogr aphy 09/29/2025 9:24 AM RANGE OPERATOR Impressions 09/29/2025 9:24 AM RANGE OPERATOR 1. There are calcifications project over both kidneys indicative of nephrolithiasis similar to the prior CT. 2. No definite stone along the course of the ureters. If there strong clinical concern, CT could be obtained in follow-up. 3. There are other mesenteric calcifications, nonspecific. Electronically signed by: Gordo Olivia M.D. Narrative 09/29/2025 9:24 AM RANGE OPERATOR EXAMINATION: XR ABDOMEN AP 1 VIEW HISTORY: pain lower abdomen pain TECHNIQUE: Single view abdomen COMPARISON: Prior CT 11/26/2021 and x-rays 08/04/2019 FINDINGS: Minimal opacity left lung base, atelectasis or infiltrate, improved in the interval. Nonobstructive bowel gas pattern. Jorden stations project over both kidneys indicative of nephrolithiasis. No definite stone along the course of the ureters. Large ossification is seen of the left mid abdomen this could be mesenteric ossification or phlebolith. Another seen in the lateral aspect of the upper pelvis. Pelvic phleboliths. Procedure Note Gordo Olivia MD - 09/29/2025 EXAMINATION: XR ABDOMEN AP 1 VIEW HISTORY: pain lower abdomen pain TECHNIQUE: Single view abdomen COMPARISON: Prior CT 11/26/2021 and x-rays 08/04/2019 FINDINGS: Minimal opacity left lung base, atelectasis or infiltrate, improved in the interval. Nonobstructive bowel gas pattern. Jorden stations project over both kidneys indicative of nephrolithiasis. No definite stone along the course of the ureters. Large ossification is seen of the left mid abdomen this could be mesenteric ossification or phlebolith. Another seen in the lateral aspect of the upper pelvis. Pelvic phleboliths. IMPRESSION: 1. There are calcifications project over both kidneys indicative of nephrolithiasis similar to the prior CT. 2. No definite stone along the course of the ureters. If there strong clinical concern, CT could be obtained in follow-up. 3. There are other mesenteric calcifications, nonspecific. Electronically signed by: Gordo Olivia M.D. Marquita Asencio MD IMG XR PROCEDURES Final Result * POCT glucose (09/29/2025 7:32 AM RANGE OPERATOR) Pathologist [facility] Glucose, POC 115 70 - 199 mg/dL Blood 09/29/2025 7:32 AM RANGE OPERATOR 09/29/2025 7:32 AM RANGE OPERATOR Faith Hightower MD LAB POCT ORDERABLES - DEVICE Final Result [facility] 1 [facility] Department [place] [address] * (ABNORMAL) eGFR (09/29/2025 4:04 AM RANGE OPERATOR) eGFR 14(L) >=60 mL/min/1. 73 m2 Comment: Interpretive Data [...] interpretive data was last reviewed 2021. Blood 09/29/2025 4:04 AM RANGE OPERATOR 09/29/2025 4:24 AM RANGE OPERATOR us Marquita Asencio MD LAB BLOOD ORDERABLES Final Resu lt [facility] ([place]) 1 [facility] Department of Laboratories [place], [place] [id number] * (ABNORMAL) CBC without differential (09/29/2025 4:04 AM RANGE OPERATOR) WBC 12.46(H) 3.80 - 9.90 K/cumm Hgb 9.6(L) 13.0 - 17.5 g/dL [facility] ([place]) Hct 31.5(L) 38.9 - 50.3 % [facility] ([place]) Plt 239 150 - 400 K/cumm [facility] ([place]) MPV 10.9 9.1 - 12.3 fL [facility] ([place]) RBC 3.50(L) 4.30 - 5.80 M/cumm [facility] ([place]) MCV 90.0 81.3 - 96.4 fL [facility] ([place]) MCH 27.4 27.1 - 33.3 pg [facility] ([place]) MCHC 30.5(L) 32.3 - 35.7 g/dL [facility] ([place]) RDW CV 14.2 11.1 - 14.9 % [facility] ([place]) RDW SD 46.1 35.7 - 48.1 fL [facility] ([place]) NRBC abs 0.00 0.00 - 0.01 K/cumm [facility] ([place]) Blood 09/29/2025 4:04 AM RANGE OPERATOR 09/29/2025 4:24 AM RANGE OPERATOR Marc PALACIOS LAB BLOOD ORDERABLES Final Result [facility] ([place]) 1 [facility] Department [place] [address] * (ABNORMAL) Comprehensive metabolic panel (09/29/2025 4:04 AM RANGE OPERATOR) Sodium 143 135 - 145 mmol/L Potassium, pl 5.1(H) 3.3 - 4.9 mmol/L [facility] ([place]) Chloride 109 97 - 110 mmol/L [facility] ([place]) CO2 22 22 - 32 mmol/L [facility] ([place]) Anion gap 12 2 - 15 mmol/L [facility] ([place]) BUN 63(H) 6 - 25 mg/dL [facility] ([place]) Creatinine 4.28(H) 0.80 - 1.30 mg/dL [facility] ([place]) Glucose 123 70 - 199 mg/dL [facility] ([place]) [...] classification and Diagnosis of Diabetes Diabetes Care 2021; 46: S19-S40. Current interpretive data was last revised 2022. Calcium 9.6 8.5 - 10.3 mg/dL [facility] ([place]) Bilirubin, total 0.4 0.1 - 1.2 mg/dL [facility] ([place]) Protein, pl 6.9 6.5 - 8.5 g/dL [facility] ([place]) Albumin 3.7 3.5 - 5.0 g/dL [facility] ([place]) Alk phos 106 40 - 130 Units/L [facility] ([place]) ALT 19 7 - 55 Units/L [facility] ([place]) AST 14 10 - 50 Units/L [facility] ([place]) Blood 09/29/2025 4:04 AM RANGE OPERATOR 09/29/2025 4:24 AM RANGE OPERATOR us Marquita Asencio MD LAB BLOOD ORDERABLES Final Resu lt [facility] ([place]) 1 [facility] Department [place] [address] * POCT glucose (09/29/2025 2:33 AM RANGE OPERATOR) Glucose, POC 122 70 - 199 mg/dL Blood 09/29/2025 2:33 AM RANGE OPERATOR 09/29/2025 2:33 AM RANGE OPERATOR us Blanche Oakley MD LAB POCT ORDERABLES - DEV ICE Final Result Performing Organization Address City/[facility]/ZIP Co de Phone Number [facility] ([place]) 1 [facility] [place] [address] * (ABNORMAL) Troponin T high-sensitivity 6-hour (09/28/2025 9:49 PM RANGE OPERATOR) Trop T hs 184(H) <=22 ng/L Comment: Interpretive Data For further hscTnT resources including the diagnostic algorithm and an aid in interpretation, copy and paste this link: https://nrl.testcatalog.org/show/hsTrop Current Interpretive Data last revised 2020. Trop T hs pct delta -3 % [facility] ([place]) Trop T hs interp Insignificant [facility] ([place]) Blood 09/28/2025 9:49 PM RANGE OPERATOR 09/28/2025 10:04 PM RANGE OPERATOR us Marc PALACIOS LAB BLOOD ORDERABLES Final Result [facility]) 1 [facility] Department [place] [address] * (ABNORMAL) Pro B-type natriuretic peptide (09/28/2025 9:49 PM RANGE OPERATOR) NT-proBNP 6,779(H) <=450 pg/mL Comment: Interpretive Comments: A. Dyspnea in Acute Care Setting All Ages: < 300 pg/ml, acute heart failure unlikely. < 50 yrs: 300 - 450 pg/ml, further investigation warranted. > 450 pg/ml, acute heart failure likely. 50 - 74 yrs: 300 - 900 pg/ml, further investigation warranted. > 900 pg/ml, acute heart failure likely . > or = 75 yrs: 450 - 1800 pg/ml, further investigation warranted. > 1800 pg/ml, acute heart failure likely. B. Non-acute Setting < 75 yrs < 125 pg/ml, rules out heart failure. > or = 125 pg/ml, further investigation warranted. > or = 75 yrs < 450 pg/ml, rules out heart failure. > or = 450 pg/ml, further investigation warranted. - Knowledge of each individual patient's NT-proBNP range may be more useful than using similar cut-points for every patient. Please note that marked elevations in NT-proBNP levels may be observed in state other than Left Ventricular Congestive Failure, including: acute coronary syndromes, right heart strain/failure (including pulmonary embolism and cor pulmonale), critical illness, renal failure, as well as advanced age. - References: 1. Vira BA et.al. Eur Heart J. 2006:27:330-337. 2. Zenia RW, Aicha AM. J. AM Maritnez Cardiol: Cardiovasc Imag. 2009;2: 216- 225. Interpretive Data Last Revised Date: 2018. Blood 09/28/2025 9:49 PM RANGE OPERATOR 09/28/2025 10:05 PM RANGE OPERATOR us Marquita Asencio MD LAB BLOOD ORDERABLES Final Resu lt Performing Organization Address City/[facility]/ZIP Co de Phone Number [facility] ([place]) 1 [facility] [place] [address] * MRSA Only (Staphylococcus aureus) PCR Nasal (09/28/2025 9:35 PM RANGE OPERATOR) PCR Scrn, Methicillin resistant Staphylococcus aureus (MRSA) Not Detected Not Detected Comment: Interpretive Data Testing performed using Nucleic Acid Amplification with the [employer] Xpert MRSA NxG Assay. This assay detects target DNA from mecA, mecC and the SCCmec insertion site of Staphylococcus aureus using Real-Time PCR and has been cleared by the FDA. Performance characteristics have been verified by the [facility]. Current Interpretive Data was last revised on 2023 Nasal 09/28/2025 9:35 PM RANGE OPERATOR 09/28/2025 9:43 PM RANGE OPERATOR Marquita Asencio MD LAB MICROBIOLOGY - GENERAL ORDE RABLES Final Result Performing Organization Address City/[facility]/ZIP Co de Phone Number [facility] ([place]) 1 [facility] [employer] [address] * POCT glucose (09/28/2025 8:12 PM RANGE OPERATOR) Pathologist [facility] Glucose, POC 132 70 - 199 mg/dL Blood 09/28/2025 8:12 PM RANGE OPERATOR 09/28/2025 8:12 PM RANGE OPERATOR Blanche Oakley MD LAB POCT ORDERABLES - DEV ICE Final Result [facility] ([place]) 1 [facility] [place] [address] * Procalcitonin (09/28/2025 7:53 PM RANGE OPERATOR) Pathologist [facility] Procalcitonin 0.20 <=0.25 ng/mL Comment:Testing performed by : [facility], [address] [place] [address]., [id number] Blood 09/28/2025 7:53 PM RANGE OPERATOR 09/29/2025 7:17 PM RANGE OPERATOR us Marquita Asencio MD LAB BLOOD ORDERABLES Final Resu lt Performing Organization Address [facility]/ZIP Co de Phone Number [facility] ([place]) 1 [place] [address] * (ABNORMAL) Troponin T high-sensitivity 4-hour (09/28/2025 7:47 PM RANGE OPERATOR) Trop T hs 183(H) <=22 ng/L Comment: Interpretive Data For further hscTnT resources including the diagnostic algorithm and an aid in interpretation, copy and paste this link: https://nrl.testcatalog.org/show/hsTrop Current Interpretive Data last revised 2020. Trop T hs pct delta -3 % [facility] ([place] Trop T hs interp Insignificant [facility] ([place]) Blood 09/28/2025 7:47 PM RANGE OPERATOR 09/28/2025 7:53 PM RANGE OPERATOR us Marc PALACIOS LAB BLOOD ORDERABLES Final Result Performing Organization Address [facility] Co de Phone Number [facility] ([place]) 1 [place] [address] * (ABNORMAL) Urinalysis reflex to microscopic and culture Urine (09/28/2025 6:18 PM RANGE OPERATOR) Color, ur Straw Yellow Clarity, ur Clear Clear [facility] ([place]) Specific gravity, ur 1.010 1.003 - 1.030 [facility] ([place]) pH, urine 5.5 [facility] ([place]) Comment: Interpretive Data U rine pH is affected by diet, medications, systemic acid-base disturbances, and renal tubular function. pH may affect urinary stone formation. For example, urine pH below 6.0 may help reduce the tendency for calcium phosphate stones and pH greater than 6.0 may reduce the tendency for uric acid stone formation. Source: [facility] Current Interpretive Data was last revised on 2017 Protein, ur ql Trace Negative [facility] ([place]) Glucose, ur ql Negative Negative [facility] ([place]) Ketones, ur Negative Negative [facility] ([place]) Bilirubin, ur Negative Negative [facility] ([place]) Blood, ur Trace(A) Negative [facility] ([place]) Urobilinogen, ur <2.0 <2.0 mg/dL [facility] ([place]) Nitrite, ur Negative Negative [facility] ([place]) Leukocyte esterase, ur 3+(A) Negative [facility] ([place]) UA reflex comment Reflex to microscopic UA will be performed. [facility] ([place]) Urine 09/28/2025 6:18 PM RANGE OPERATOR 09/28/2025 6:25 PM RANGE OPERATOR us Marc PALACIOS LAB MICROBIOLOGY - GENERAL ORDERABLES Final Result Performing Organization Address [facility] Co de Phone Number [facility] ([place]) 1 [facility] [employer] [place] [address] * Strep pneumoniae antigen, urine Urine (09/28/2025 6:18 PM RANGE OPERATOR) S. pneumoniae Ag Negative Negative Comment: Interpretive Data A positive result is indicative of pneumococcal pneumonia in patients with severe CAP. Cross-reactivity with closely related Streptococcus bacteria may occur. A negative result suggests no current or recent pneumococcal infection but cannot rule out infection with S. pneumoniae. The results of this testing should be used in conjunction with clinical findings and other diagnostic testing, including microbiologic culture. Current Interpretive Data was last revised on 2023 Testing performed by: [facility], [address] [place] [address], [place]., [address] Urine 09/28/2025 6:18 PM RANGE OPERATOR 09/29/2025 9:41 AM RANGE OPERATOR us Marquita Asencio MD LAB MICROBIOLOGY - GENERAL ORDAnusha JAQUEZ Final Result Performing Organization Address [facility]/ZIP Co de Phone Number [facility] ([place]) 1 [facility] [place] [address] * Urea nitrogen, urine, random (09/28/2025 6:18 PM RANGE OPERATOR) Urea nitrogen, ur 308 mg/dL Comment: Interpretive Data No reference range established. Current interpretive data was last revised 2019. Testing performed by: [facility], [address] [place] [address], [id number] Urine 09/28/2025 6:18 PM RANGE OPERATOR 09/29/2025 9:41 AM RANGE OPERATOR Marquita Asencio MD LAB URINE ORDERABLES Final Resu lt Performing Organization Address City/[facility]/ZIP Co de Phone Number [facility] ([place]) [address] [place] [id number] * Legionella antigen Urine (09/28/2025 6:18 PM RANGE OPERATOR) Pathologist [facility] Legionella Ag Negative Negative Comment: Interpretive Data This test detects only Legionella pneumophila serogroup 1 antigen. Current interpretive data was last revised on 2020. Testing performed by: [facility], [address] [place] [address]., [id number] Urine 09/28/2025 6:18 PM RANGE OPERATOR 09/29/2025 9:41 AM RANGE OPERATOR Marquita Asencio MD LAB MICROBIOLOGY - GENERAL ORDE RABLES Final Result [facility] ([place]) 1 [place] [address] * Sodium, urine, random (09/28/2025 6:18 PM RANGE OPERATOR) Sodium, ur 125 mmol/L Comment: Interpretive Data No reference range established. Current interpretive data was last revised 2019. Urine 09/28/2025 6:18 PM RANGE OPERATOR 09/28/2025 8:50 PM RANGE OPERATOR Narrative [facility] ([place]) - 09/28/2025 9:00 PM RANGE OPERATOR No normal range us Herminia Aceves MD LAB URINE ORDERABLES Final Re sult [facility] ([place]) 1 [facility] Department [place] [address] * Creatinine, urine, random (09/28/2025 6:18 PM RANGE OPERATOR) Creatinine Ur 33.6 mg/dL Comment: Interpretive Data No reference range established. Current interpretive data was last revised 2019. Urine 09/28/2025 6:18 PM RANGE OPERATOR 09/28/2025 8:50 PM RANGE OPERATOR Narrative [facility] ([place]) - 09/28/2025 9:12 PM RANGE OPERATOR No normal range us Marquita Asencio MD LAB URINE ORDERABLES Final Resu lt Performing Organization Address [facility] Co de Phone Number [facility] ([place]) 1 [facility] [place] [address] * (ABNORMAL) Urinalysis, microscopic only (09/28/2025 6:18 PM RANGE OPERATOR) WBC, ur 6-10(A) 0 - 5 /HPF RBC, ur 0-2 0 - 2 /HPF [facility] ([place]) Epithelial cells, squamous, ur 1-5 0 - 5 /HPF [facility] ([place]) Bacteria, ur 1+(A) [facility] ([place]) Mucous, ur Present(A) [facility] ([place]) Culture Reflex Comment Reflex conditions for urine culture (WBC >10) not met. [facility] ([place]) Urine 09/28/2025 6:18 PM RANGE OPERATOR 09/28/2025 6:25 PM RANGE OPERATOR us Marc PALACIOS LAB URINE ORDERABLES Final Result Performing Organization Address City/[facility]/ZIP Co de Phone Number BRETT GOMEZ (BUDA) 1 [facility] [place] [address] * Critical Care (09/28/2025 5:50 PM RANGE OPERATOR) Narrative Marc Joya PA - 09/28/2025 5:50 PM RANGE OPERATOR Marc Joya PA 09/28/2025 5:51 PM Critical Care Performed by: Marc Joya PA Authorized by: Amy Trivedi MD Critical care provider statement: As reflected in the history, physical exam, orders, notes, and/or MDM, I was personally present while the patient was critically ill and provided critical care services for 32 minutes, excluding time involved in separately billable procedures. Critical care was necessary to treat or prevent imminent or life-threatening deterioration of the following condition(s): acute congestive heart failure excerbation (CHF) hyperkalemia management and acute renal failure pneumonia Critical care was time spent by me providing the following: continuous telemetry, continuous pulse oximetry, interpretation of bedside monitors, imaging, and arterial/venous lab draws, serial bedside patient exams and serial laboratory checks acute diuresis hyperkalemia medical management I provided emergent necessary critical care medicine services to this patient. I ordered and reviewed test results and/or imaging studies. I spent time discussing the management of this critically ill patient with consultants and the medical staff. I spent time discussing the management and therapeutic options for this critically ill patient with the patient themselves or with the appropriate designated surrogate decision-maker. I spent time documenting in the medical record. I admitted this patient to a continuous cardiac monitored bed. us Amy Trivedi MD IN CLINIC/BEDSIDE O RDERABLES Final Result * (ABNORMAL) Troponin T high-sensitivity 2-hour (09/28/2025 5:48 PM RANGE OPERATOR) Trop T hs 176(H) <=22 ng/L Comment: Interpretive Data For further hscTnT resources including the diagnostic algorithm and an aid in interpretation, copy and paste this link: https://nrl.testcatalog.org/show/hsTrop Current Interpretive Data last revised 2020. Trop T hs pct delta -7 % [facility] ([place]) Trop T hs interp Equivocal [facility] ([place]) Blood 09/28/2025 5:48 PM RANGE OPERATOR 09/28/2025 5:57 PM RANGE OPERATOR Marc PALACIOS LAB BLOOD ORDERABLES Final Result BRETT GOMEZ (BUDA) 1 [place] [address] * Sepsis Lactate w/ Reflex (09/28/2025 5:48 PM RANGE OPERATOR) Pathologist [facility] Sepsis Lactate 0.8 0.7 - 2.0 mmol/L Blood 09/28/2025 5:48 PM RANGE OPERATOR 09/28/2025 5:57 PM RANGE OPERATOR Marc PALACIOS LAB BLOOD ORDERABLES Final Result Performing Organization Address [facility] de Phone Number BRETT GOMEZ (BUDA) 1 [place] [address] * (ABNORMAL) Blood culture Blood (09/28/2025 5:48 PM RANGE OPERATOR) [facility] Direct Specimen Exam Stain: Gram Positive Cocci in clusters Time to culture positivity (anaerobic media): 41.9 hours Notification of: Gram Positive Cocci in clusters called to and read back by: Kathy Madrigal MLT, on 09/30/2025 14:20:53 by: Christy Wagner MLT Test result called to and read back by Nery CELAYA on 09/30/2025 14:24:28 by Kathy Madrigal. Notification of: Staphylococcus epidermidis (methicillin-susce ptible) called to and read back by: Sharda CELAYA on 09/30/2025 16:14:12 by: Kimmy Sheets Comment:Testing performed by : [facility], 1 [facility], [place]., [address] Direct Specimen Exam Molecular Analysis: Staphylococcus epidermidis (methicillin-susce ptible) detected by pam ePlex BCID-GP panel. Single positive culture may represent contamination. This test does not exclude the possibility of a mixed bacterial infection. Notification of: Staphylococcus epidermidis (methicillin-susce ptible) called to and read back by: Kimmy Sudeep, PA [phone] on 09/30/2025 16:08:49 by: NISSA Ziegler ([place]) Comment:Testing performed by : [facility], [address] [place] [address]., [id number] Report Final Report: Staphylococcus epidermidis Single blood culture positive for this microorganism. Isolate is a possible contaminant. If a similar isolate is recovered from a second blood culture collected within 3 days of this culture, both will be evaluated and, if determined to be the same species, antimicrobial susceptibility testing will be performed. (.) BRETT GOMEZ ([place]) Comment:Testing performed by : [facility], 1 [place]., [address] Organism STAPHYLOCOCCUS EPIDERMIDIS BRETT [facility] ([place]) Blood 09/28/2025 5:48 PM RANGE OPERATOR 09/28/2025 7:56 PM RANGE OPERATOR Narrative BRETT [facility] ([place]) - 10/03/2025 8:12 AM RANGE OPERATOR From a different site than #1. Collection->Peripheral 1. Blood cultures are incubated for 4 days on a continuously monitored blood culture system. The first report of a negative culture is issued within 24 hours of receipt of the specimen in the laboratory. 2. Positive culture results are reported as soon as they are detected. 3. The most important factor for detection of microbes in the setting of bloodstream infection is the volume of blood submitted for culture. Failure to collect an optimal blood volume can result in false negative blood cultures. 4. For pediatric patients, the recommended blood volume to collect follows a weight based strategy. See the electronic test catalog for collection instructions. 5. For positive blood cultures, a rapid molecular test may be performed for organism identification using the pam ePlex blood culture identification panel for gram positive (BCID-GP) and gram negative (BCID-GN) organisms. This nucleic acid amplification test detects microbial DNA in positive blood culture broth. This assay has been cleared by the [place] Food and Drug Administration and its performance characteristics have been verified by the [facility] Microbiology Laboratory. For questions about this culture, contact the Microbiology Laboratory at [phone]. Interpretive data was last revised on 24. Marc PALACIOS LAB MICROBIOLOGY - GENERAL ORDERABLES Final Result BRETT VILLALOBOS) 1 [facility] [place] [address] * Blood culture Blood (09/28/2025 5:48 PM RANGE OPERATOR) Report Final Report: No growth Comment:Testing performed by : [facility], 1 [facility], [place]., [address] Blood 09/28/2025 5:48 PM RANGE OPERATOR 09/28/2025 7:55 PM RANGE OPERATOR Narrative BRETT GOMEZ ([place]) - 10/03/2025 7:00 AM RANGE OPERATOR Collection->Peripheral 1. Blood cultures are incubated for 4 days on a continuously monitored blood culture system. The first report of a negative culture is issued within 24 hours of receipt of the specimen in the laboratory. 2. Positive culture results are reported as soon as they are detected. 3. The most important factor for detection of microbes in the setting of bloodstream infection is the volume of blood submitted for culture. Failure to collect an optimal blood volume can result in false negative blood cultures. 4. For pediatric patients, the recommended blood volume to collect follows a weight based strategy. See the electronic test catalog for collection instructions. 5. For positive blood cultures, a rapid molecular test may be performed for organism identification using the pam ePlex blood culture identification panel for gram positive (BCID-GP) and gram negative (BCID-GN) organisms. This nucleic acid amplification test detects microbial DNA in positive blood culture broth. This assay has been cleared by the [place] Food and Drug Administration and its performance characteristics have been verified by the [facility]biology Laboratory. For questions about this culture, contact the Microbiology Laboratory at [phone]. Interpretive data was last revised on 24. Marc PALACIOS LAB MICROBIOLOGY - GENERAL ORDERABLES Final Result BRETT VILLALOBOS) 1 [facility] Department [place] [address] * XR Chest PA Lateral 2 Views (09/28/2025 4:17 PM RANGE OPERATOR) Anatomical Region Laterality Modality Body, Chest N/A Computed Radiogr aphy 09/28/2025 4:42 PM RANGE OPERATOR Impressions 09/28/2025 4:42 PM RANGE OPERATOR 2 views of the chest are compared to 01/15/2025. There are are patchy opacities at the left lung base, which could be atelectasis or pneumonia in the appropriate clinical setting. No atelectasis at the right lung base. Unchanged mild lateral pleural thickening at the left lung base. No definite pleural effusion. No pneumothorax. Mild cardiomegaly. The central contours are otherwise normal. Suture anchor in the proximal right humerus. No aggressive bone lesion or acute fracture is seen. The visualized upper abdomen is grossly unremarkable. There is degenerative disc disease. Electronically signed by: Wilian Woods M.D. Narrative 09/28/2025 4:42 PM RANGE OPERATOR EXAMINATION: 2 view chest radiograph Procedure Note Wilian Woods MD - 09/28/2025 EXAMINATION: 2 view chest radiograph IMPRESSION: 2 views of the chest are compared to 01/15/2025. There are are patchy opacities at the left lung base, which could be atelectasis or pneumonia in the appropriate clinical setting. No atelectasis at the right lung base. Unchanged mild lateral pleural thickening at the left lung base. No definite pleural effusion. No pneumothorax. Mild cardiomegaly. The central contours are otherwise normal. Suture anchor in the proximal right humerus. No aggressive bone lesion or acute fracture is seen. The visualized upper abdomen is grossly unremarkable. There is degenerative disc disease. Electronically signed by: Wilian Woods M.D. Marc PALACIOS IMG XR PROCEDURES Final Re sult * (ABNORMAL) Troponin T high-sensitivity series (baseline, 2hr, 4hr, 6hr) (09/28/2025 4:04 PM RANGE OPERATOR) Trop T hs 189(H) <=22 ng/L Comment: Interpretive Data For further hscTnT resources including the diagnostic algorithm and an aid in interpretation, copy and paste this link: https://nrl.testcatalog.org/show/hsTrop Current Interpretive Data last revised 2020. Blood 09/28/2025 4:04 PM RANGE OPERATOR 09/28/2025 4:14 PM RANGE OPERATOR us Marc PALACIOS LAB BLOOD ORDERABLES Final Result Performing Organization Address [facility] Co de Phone Number BRETT GOMEZ ([place]) 1 [facility] [place] [employer] [address] * (ABNORMAL) eGFR (09/28/2025 4:04 PM RANGE OPERATOR) eGFR 14(L) >=60 mL/min/1. 73 m2 Comment: Interpretive Data [...] interpretive data was last reviewed 2021. Blood 09/28/2025 4:04 PM RANGE OPERATOR 09/28/2025 4:14 PM RANGE OPERATOR Marc PALACIOS LAB BLOOD ORDERABLES Final Result Performing Organization Address [facility]/ZIP Co de Phone Number [facility] ([place]) 1 [facility] [place] [address] * (ABNORMAL) Differential, auto (09/28/2025 4:04 PM RANGE OPERATOR) Neutrophil abs 7.96(H) 1.50 - 6.50 K/cumm Imm gran abs 0.05 0.00 - 0.10 K/cumm [facility] ([place]) Lymphocyte abs 1.51 0.80 - 3.30 K/cumm [facility] ([place]) Monocyte abs 0.74 0.20 - 0.80 K/cumm [facility] ([place]) Eosinophil abs 0.30 0.00 - 0.50 K/cumm [facility] ([place]) Basophil abs 0.05 0.00 - 0.10 K/cumm [facility] ([place]) Neutrophil pct 75.0 % [facility] ([place]) Comment: Interpretive Data Percent cell count reference ranges are not reported, since discordance with absolute values may lead to misinterpretation of CBC data. Current Interpretive Data was last revised on 2018. Imm gran pct 0.5 % [facility] ([place]) Comment: Interpretive Data Percent cell count reference ranges are not reported, since discordance with absolute values may lead to misinterpretation of CBC data. Current Interpretive Data was last revised on 2018. Lymphocyte pct 14.2 % [facility] ([place]) Comment: Interpretive Data Percent cell count reference ranges are not reported, since discordance with absolute values may lead to misinterpretation of CBC data. Current Interpretive Data was last revised on 2018. Monocyte pct 7.0 % [facility] ([place]) Comment: Interpretive Data Percent cell count reference ranges are not reported, since discordance with absolute values may lead to misinterpretation of CBC data. Current Interpretive Data was last revised on 2018. Eosinophil pct 2.8 % [facility] ([place]) Comment: Interpretive Data Percent cell count reference ranges are not reported, since discordance with absolute values may lead to misinterpretation of CBC data. Current Interpretive Data was last revised on 2018. Basophil pct 0.5 % [facility] ([place]) Comment: Interpretive Data Percent cell count reference ranges are not reported, since discordance with absolute values may lead to misinterpretation of CBC data. Current Interpretive Data was last revised on 2018. Blood 09/28/2025 4:04 PM RANGE OPERATOR 09/28/2025 4:13 PM RANGE OPERATOR Marc PALACIOS LAB BLOOD ORDERABLES Final Result [facility] ([place]) 1 [facility] Department [place] [address] * (ABNORMAL) Pro B-type natriuretic peptide (09/28/2025 4:04 PM RANGE OPERATOR) NT-proBNP 6,358(H) <=450 pg/mL Comment: Interpretive Comments: A. Dyspnea in Acute Care Setting All Ages: < 300 pg/ml, acute heart failure unlikely. < 50 yrs: 300 - 450 pg/ml, further investigation warranted. > 450 pg/ml, acute heart failure likely. 50 - 74 yrs: 300 - 900 pg/ml, further investigation warranted. > 900 pg/ml, acute heart failure likely . > or = 75 yrs: 450 - 1800 pg/ml, further investigation warranted. > 1800 pg/ml, acute heart failure likely. B. Non-acute Setting < 75 yrs < 125 pg/ml, rules out heart failure. > or = 125 pg/ml, further investigation warranted. > or = 75 yrs < 450 pg/ml, rules out heart failure. > or = 450 pg/ml, further investigation warranted. - Knowledge of each individual patient's NT-proBNP range may be more useful than using similar cut-points for every patient. Please note that marked elevations in NT-proBNP levels may be observed in state other than Left Ventricular Congestive Failure, including: acute coronary syndromes, right heart strain/failure (including pulmonary embolism and cor pulmonale), critical illness, renal failure, as well as advanced age. - References: 1. Vira BA et.al. Eur Heart J. 2006:27:330-337. 2. Zenia BETH, Aicha KC. J. AM Martinez Cardiol: Cardiovasc Imag. 2009;2: 216- 225. Interpretive Data Last Revised Date: 2018. Blood 09/28/2025 4:04 PM RANGE OPERATOR 09/28/2025 4:13 PM RANGE OPERATOR us Marc PALACIOS LAB BLOOD ORDERABLES Final Result [facility] ([place]) 1 [facility] [place] [address] * (ABNORMAL) CBC with auto differential (09/28/2025 4:04 PM RANGE OPERATOR) WBC 10.61(H) 3.80 - 9.90 K/cumm Hgb 9.5(L) 13.0 - 17.5 g/dL [facility] ([place]) Hct 30.6(L) 38.9 - 50.3 % [facility] ([place]) Plt 249 150 - 400 K/cumm [facility] ([place]) MPV 11.1 9.1 - 12.3 fL [facility] ([place]) RBC 3.41(L) 4.30 - 5.80 M/cumm [facility] ([place]) MCV 89.7 81.3 - 96.4 fL [facility] ([place]) MCH 27.9 27.1 - 33.3 pg [facility] ([place]) MCHC 31.0(L) 32.3 - 35.7 g/dL [facility] ([place]) RDW CV 14.4 11.1 - 14.9 % [facility] ([place]) RDW SD 46.5 35.7 - 48.1 fL [facility] ([place]) NRBC abs 0.00 0.00 - 0.01 K/cumm [facility] ([place]) Blood 09/28/2025 4:04 PM RANGE OPERATOR 09/28/2025 4:13 PM RANGE OPERATOR Marc PALACIOS LAB BLOOD ORDERABLES Final Result BRETT GOMEZ ([place]) 1 [facility] [place] [address] * (ABNORMAL) Comprehensive metabolic panel (09/28/2025 4:04 PM RANGE OPERATOR) Pathologist [facility] Sodium 141 135 - 145 mmol/L Potassium, pl 5.4(H) 3.3 - 4.9 mmol/L [facility] ([place]) Chloride 109 97 - 110 mmol/L [facility] ([place]) CO2 20(L) 22 - 32 mmol/L [facility] ([place]) Anion gap 12 2 - 15 mmol/L [facility] ([place]) BUN 65(H) 6 - 25 mg/dL [facility] ([place]) Creatinine 4.11(H) 0.80 - 1.30 mg/dL [facility] ([place]) Glucose 161 70 - 199 mg/dL [facility] ([place]) [...] classification and Diagnosis of Diabetes Diabetes Care 2021; 46: S19-S40. Current interpretive data was last revised 2022. Calcium 9.5 8.5 - 10.3 mg/dL [facility] ([place]) Bilirubin, total 0.3 0.1 - 1.2 mg/dL [facility] ([place]) Protein, pl 7.4 6.5 - 8.5 g/dL [facility] ([place]) Albumin 3.8 3.5 - 5.0 g/dL [facility] ([place]) Alk phos 102 40 - 130 Units/L [facility] ([place]) ALT 19 7 - 55 Units/L [facility] ([place]) AST 14 10 - 50 Units/L [facility] ([place]) Blood 09/28/2025 4:04 PM RANGE OPERATOR 09/28/2025 4:14 PM RANGE OPERATOR us Marc PALACIOS LAB BLOOD ORDERABLES Final Result [facility] ([place]) 1 [facility] Department [place] [address] * POCT glucose (09/28/2025 4:03 PM RANGE OPERATOR) Glucose, POC 148 70 - 199 mg/dL Blood 09/28/2025 4:03 PM RANGE OPERATOR 09/28/2025 4:03 PM RANGE OPERATOR Notinfile Unknown LAB POCT ORDERABLES - DEVICE F inal Result Performing Organization Address City/[facility]/ZIP Co de Phone Number BRETT [address] Department [place] [address] * ECG 12 lead (09/28/2025 3:51 PM RANGE OPERATOR) 09/28/2025 3:51 PM RANGE OPERATOR Narrative [facility] - 09/30/2025 1:19 AM RANGE OPERATOR Vent Rate: 101 bpm RR Interval: 592 msec [place] Interval: 0 msec QRS Duration: 118 msec QT Interval: 358 msec QTC Interval: 416 msec P-R-T Viola: [phone] - -55 - 33 degrees IMPRESSION: ATRIAL FIBRILLATION WITH RAPID VENTRICULAR RESPONSE LOW QRS VOLTAGE IN PRECORDIAL LEADS [QRS DEFLECTION < 1.0 mV IN CHEST LEADS] INCOMPLETE RIGHT BUNDLE BRANCH BLOCK [90+ ms QRS DURATION, TERMINAL R IN V1/V2, 40+ ms S IN I/aVL/V4/V5/V6] LEFT ANTERIOR FASCICULAR BLOCK [QRS AXIS <= -45, QR IN I, RS IN II] POSSIBLE ANTERIOR MYOCARDIAL INFARCTION , PROBABLY OLD [30 ms Q WAVE IN V3/V4, OR R < 0.2 mV IN V4] ABNORMAL ECG NO CHANGE FROM PREVIOUS TRACING NOTED Electronically Signed By: Ilya Lockwood MD Marc PALACIOS ECG ORDERABLES Final Resu lt [facility] * (ABNORMAL) Albumin Creatinine Ratio, Urine (08/28/2025 11:44 AM CDT) Pathologist [facility] Albumin Ur 229.5 mg/L Comment: Interpretive Data No reference range established. Current interpretive data was last revised 2019. Testing performed by: [facility], [address] [place] [address], [place]., [address] Creatinine Ur 141.6 mg/dL BRETT GOMEZ ([place]) Comment: Interpretive Data No reference range established. Current interpretive data was last revised 2019. Testing performed by: [facility], [address] [place] [address]., [address] Albumin Creatinine Ratio, Ur 162(H) 1 - 29 mg/g REECEKIMBERLY JASON ([place]) Comment:Testing performed by : [facility], [address] [place] [address]., [address] Urine 08/28/2025 11:4 4 AM CDT 08/28/2025 4:43 PM CDT us Ciera Aldridge NP LAB URINE ORDERABLES Final Re sult BRETT JASON ([place]) 1 [facility] Department [place] [address] * (ABNORMAL) eGFR (08/28/2025 9:59 AM CDT) eGFR 22(L) >=60 mL/min/1. 73 m2 Comment: Interpretive Data [...] of Race in Diagnosing Kidney Disease, JASN 202). The CKD-EPI equation should not be used for patients with unstable renal function and has not been validated in children and those over 70. Current interpretive data was last reviewed 2021. Testing performed by: [facility], [address] [place] [address]., [address] Blood 08/28/2025 9:59 AM CDT 08/28/2025 1:07 PM CDT us Ciera Aldridge NP LAB BLOOD ORDERABLES Final Re sult BRETT GOMEZ ([place]DA) 1 [facility] Department [place] [address] * (ABNORMAL) Differential, auto (08/28/2025 9:59 AM CDT) Neutrophil abs 5.77 1.50 - 6.50 K/cumm Comment:Testing performed by : [facility], [address] [place] [address]., [id number] Imm gran abs 0.03 0.00 - 0.10 K/cumm [facility] ([place]) Comment:Testing performed by : [address], [address] Lymphocyte abs 2.48 0.80 - 3.30 K/cumm [facility] ([place]) Comment:Testing performed by : [facility], [address] [place] [address], [address] Monocyte abs 0.88(H) 0.20 - 0.80 K/cumm [facility] ([place]) Comment:Testing performed by : [facility], [address] [place] [address]., [address] Eosinophil abs 0.24 0.00 - 0.50 K/cumm [facility] ([place]) Comment:Testing performed by : [address] [address] Basophil abs 0.06 0.00 - 0.10 K/cumm [facility] ([place]) Comment:Testing performed by : [address] [address] Neutrophil pct 61.1 % [facility] ([place]) Comment: Interpretive Data Percent cell count reference ranges are not reported, since discordance with absolute values may lead to misinterpretation of CBC data. Current Interpretive Data was last revised on 2018. Testing performed by: [address], [address] Imm gran pct 0.3 % [facility] ([place]) Comment: Interpretive Data Percent cell count reference ranges are not reported, since discordance with absolute values may lead to misinterpretation of CBC data. Current Interpretive Data was last revised on 2018. Testing performed by: [facility], [address] [place] [address]., [address] Lymphocyte pct 26.2 % [facility] ([place]) Comment: Interpretive Data Percent cell count reference ranges are not reported, since discordance with absolute values may lead to misinterpretation of CBC data. Current Interpretive Data was last revised on 2018. Testing performed by: [facility], [address] [place] [address]., [address] Monocyte pct 9.3 % [facility] ([place]) Comment: Interpretive Data Percent cell count reference ranges are not reported, since discordance with absolute values may lead to misinterpretation of CBC data. Current Interpretive Data was last revised on 2018. Testing performed by: [facility], [address] [place] [address]., [address] Eosinophil pct 2.5 % [facility] ([place]) Comment: Interpretive Data Percent cell count reference ranges are not reported, since discordance with absolute values may lead to misinterpretation of CBC data. Current Interpretive Data was last revised on 2018. Testing performed by: [facility], [address] [place] [address]., [address] Basophil pct 0.6 % [facility] ([place]) Comment: Interpretive Data Percent cell count reference ranges are not reported, since discordance with absolute values may lead to misinterpretation of CBC data. Current Interpretive Data was last revised on 2018. Testing performed by: [address] [address] Blood 08/28/2025 9:59 AM CDT 08/28/2025 1:02 PM CDT us Ciera Aldridge NP LAB BLOOD ORDERABLES Final Re sult BRETT GOMEZ ([place]) 1 [facility] Department [place] [address] * (ABNORMAL) CBC with auto differential (08/28/2025 9:59 AM CDT) WBC 9.46 3.80 - 9.90 K/cumm Comment:Testing performed by : [facility], [address] [place] [address], [address] Hgb 11.5(L) 13.0 - 17.5 g/dL [facility] ([place]) Comment:Testing performed by : [address], [address] Hct 39.0 38.9 - 50.3 % [facility] ([place]) Comment:Testing performed by : [address], [address] Plt 213 150 - 400 K/cumm [facility] ([place]) Comment:Testing performed by : [address], [address] MPV 11.0 9.1 - 12.3 fL [facility] ([place]) Comment:Testing performed by : [address], [address] RBC 4.15(L) 4.30 - 5.80 M/cumm [facility] ([place]) Comment:Testing performed by : [address], [address] MCV 94.0 81.3 - 96.4 fL [facility] ([place]) Comment:Testing performed by : [address], [address] MCH 27.7 27.1 - 33.3 pg [facility] ([place]) Comment:Testing performed by : [address], [address] MCHC 29.5(L) 32.3 - 35.7 g/dL [facility] ([place]) Comment:Testing performed by : [address], [address] RDW CV 14.8 11.1 - 14.9 % [facility] ([place]) Comment:Testing performed by : [address], [address] RDW SD 52.0(H) 35.7 - 48.1 fL [facility] ([place]) Comment:Testing performed by : [address], [address] NRBC abs 0.00 0.00 - 0.01 K/cumm [facility] ([place]) Comment:Testing performed by : [facility], [address] [place] [address]., [address] Blood 08/28/2025 9:59 AM CDT 08/28/2025 1:02 PM CDT Ciera Aldridge UROGYNECOLOGY PHYSICIAN LAB BLOOD ORDERABLES Final Re sult Performing Organization Address City/[facility]/ZIP Co de Phone Number [facility] ([place]) 1 [facility] [place] [address] * (ABNORMAL) Hemoglobin A1c (08/28/2025 9:59 AM CDT) Hgb A1C 7.9(H) 4.0 - 5.6 % Comment:Testing performed by : [facility], [address] [place] [address]., [address] Estimated Average Glucose 180 mg/dL [facility] ([place]) Comment: The ADA recommends reporting an estimated Average Glucose (eAG) with all Hemoglobin A1c results using the equation derived from a study of 507 normal and diabetic adults. Minority populations were underrepresented and children were not included. (Diabetes Care 31:5585-7854, 2008). The eAG is not equivalent to a fasting glucose. Testing performed by: [facility], [address] [place] [address]., [address] Blood 08/28/2025 9:59 AM CDT 08/28/2025 1:02 PM CDT Ciera Aldridge NP LAB BLOOD ORDERABLES Final Re sult Performing Organization Address City/[facility]/ZIP Co de Phone Number BRETT [facility] ([place]) 1 [facility] [employer] [address] * (ABNORMAL) Lipid panel (08/28/2025 9:59 AM CDT) Cholesterol 105 30 - 199 mg/dL Comment: Interpretive Data Ages < or = 19 years Acceptable: <170 mg/dL Borderline high: 170-199 mg/dL High: >or= 200 mg/dL Ages > or = 20 years Desirable: <200 mg/dL Borderline high: 200-239 mg/dL High: >or= 240 mg/dL Literature References: 1. Expert Panel on Integrated Guidelines for Cardiovascular Health and Risk Reduction in Children and Adolescents. Pediatrics 2011;128:S213 2. NCEP Expert Panel. Circulation 2004;110:227 Current Interpretive Data was last revised on 2018. Testing performed by: [facility], [address] [place] [address]., [address] Triglycerides 87 <=149 mg/dL [facility] ([place]) Comment: Interpretive Data Ages < or = 9 years Acceptable: <75 mg/dL Borderline high: 75-99 mg/dL High: >or= 100 mg/dL Ages 10 to 20 years Acceptable: <90 mg/dL Borderline high: 90-129 mg/dL High: >or= 130 mg/dL Ages > or = 20 years Desirable: <150 mg/dL Borderline high: 150-199 mg/dL High: 200-499 mg/dL Very high: >or= 499 mg/dL Literature References: 1. Expert Panel on Integrated Guidelines for Cardiovascular Health and Risk Reduction in Children and Adolescents. Pediatrics 2011;128:S213 2. NCEP Expert Panel. Circulation 2004;110:227 Current Interpretive Data was last revised on 2018. Testing performed by: [facility], [address] [place] [address]., [address] HDL 38(L) >=40 mg/dL [facility] ([place]) Comment: Interpretive Data Ages < or = 19 years Acceptable: >45 mg/dL Borderline low: 40-45 mg/dL Low: <40 mg/dL Ages > or = 20 years Desirable: >or= 60 mg/dL Low: <40 mg/dL Literature References: 1. Expert Panel on Integrated Guidelines for Cardiovascular Health and Risk Reduction in Children and Adolescents. Pediatrics 2011;128:S213 2. NCEP Expert Panel. Circulation 2004;110:227 Current Interpretive Data was last revised on 2018. Testing performed by: [facility], [address] [place] [address]., [address] LDL, calculated 50 <=129 mg/dL [facility] ([place]) Comment: Interpretive Data Ages < or = 19 years Acceptable: <110 mg/dL Borderline high: 110-129 mg/dL High: >or= 130 mg/dL Ages > or = 20 years Optimal: <100 mg/dL Near optimal: 100-129 mg/dL Borderline high: 130-159 mg/dL High: >160 mg/dL Calculated using the Markos LDL-C estimating equation. This equation was implemented on 2024. Prior to this date LDL-C was estimated using the Friedewald equation. Literature References: 1. Expert Panel on Integrated Guidelines for Cardiovascular Health and Risk Reduction in Children and Adolescents. Pediatrics 2011;128:S213 2. NCEP Expert Panel. Circulation 2004;110:227 3. Markos Mcgrath et al. RADHA Cardiol. 2020 March 12;5(5):540-548. doi: 10.1001/jamacardio.2020.0013 Current Interpretive Data was last revised on 2024. Testing performed by: [address] [address] Non-HDL Cholesterol 67 mg/dL [facility] ([place]) Comment: Interpretive Data Ages < or = 19 years Acceptable: <120 mg/dL Borderline high: 120-144 mg/dL High: >145 mg/dL Ages > or = 20 years When triglycerides are >200 mg/dL, Non-HDL cholesterol is a secondary target of therapy with treatment goals that are 30 mg/dL greater than the LDL cholesterol target. Literature References: 1. Expert Panel on Integrated Guidelines for Cardiovascular Health and Risk Reduction in Children and Adolescents. Pediatrics 2011;128:S213 2. NCEP Expert Panel. Circulation 2004;110:227 Current Interpretive Data was last revised on 2018. Testing performed by: [address] [address] Chol/HDL ratio 3 RHONDA [facility] ([place]) Comment:Testing performed by : [address] [address] Blood 08/28/2025 9:59 AM CDT 08/28/2025 1:02 PM CDT us Ciera Aldridge NP LAB BLOOD ORDERABLES Final Re sult [facility] ([place]) 1 [facility] [place] [address] * (ABNORMAL) Comprehensive metabolic panel (08/28/2025 9:59 AM CDT) Sodium 144 135 - 145 mmol/L Comment:Testing performed by : [address] [address] Potassium, pl 4.4 3.3 - 4.9 mmol/L [facility] ([place]) Comment:Testing performed by : [facility], [address] [place] [address]., [address] Chloride 109 97 - 110 mmol/L [facility] ([place]) Comment:Testing performed by : [facility], [address] [place] [address]., [address] CO2 21(L) 22 - 32 mmol/L [facility] ([place]) Comment:Testing performed by : [address], [address] Anion gap 14 2 - 15 mmol/L [facility] ([place]) Comment:Testing performed by : [address] [address] BUN 45(H) 6 - 25 mg/dL [facility] ([place]) Comment:Testing performed by : [address] [address] Creatinine 2.81(H) 0.80 - 1.30 mg/dL [facility] ([place]) Comment:Testing performed by : [address] [address] Glucose 100 70 - 199 mg/dL [facility] ([place]) [...] Current interpretive data was last revised 2022. Testing performed by: [facility], [address], [place]., [address] Calcium 9.7 8.5 - 10.3 mg/dL [facility] ([place]) Comment:Testing performed by : [facility], [address] [place] [address]., [address] Bilirubin, total 0.4 0.1 - 1.2 mg/dL [facility] ([place]) Comment:Testing performed by : [facility], [address] [place] [address], [address] Protein, pl 7.5 6.5 - 8.5 g/dL [facility] ([place]) Comment:Testing performed by : [facility], [address] [place] [address], [address] Albumin 4.0 3.5 - 5.0 g/dL [facility] ([place]) Comment:Testing performed by : [address], [address] Alk phos 97 40 - 130 Units/L [facility] ([place]) Comment:Testing performed by : [address], [address] ALT 19 7 - 55 Units/L [facility] ([place]) Comment:Testing performed by : [facility], [address] [place] [address], [address] AST 22 10 - 50 Units/L [facility] ([place]) Comment:Testing performed by : [facility], [address] [place] [address], [address] Blood 08/28/2025 9:59 AM CDT 08/28/2025 1:02 PM CDT Ciera Aldridge NP LAB BLOOD ORDERABLES Final Re sult [facility] ([place]) 1 [facility] Department [place] [address] * Diabetic Eye Exam (09/30/2021) Historical Provider HEALTH MAINTENANCE Final Result * COLONOSCOPY (11/19/2020 8:53 AM RANGE OPERATOR) Anatomical Region Laterality Modality Other Narrative Procedure Note Grayson Arriola MD - 11/19/2020 8:53 AM CST [facility] Patient Name: Monico Gleason Procedure Date: 11/19/2020 8:53 AM Date of : 1945 Admit Type: Outpatient Age: 74 Gender: Male Note Status: Finalized Attending MD: Grayson Arriola M.D. Procedure Date: 11/19/2020 Procedure: Colonoscopy Indications: Positive Cologuard test Providers: Grayson Arriola M.D., Bebe Coles CRNA (Anesthesia Staff), Abdiel Hutchins RN Referring MD: Luis Carlos Calzada M.D. Medicines: Monitored Anesthesia Care Complications: No immediate complications. Estimated Blood Loss: Estimated blood loss: none. Procedure: Pre-Anesthesia Assessment: - Airway Examination: small/crowded oropharyngeal airway. - Respiratory Examination: clear to auscultation. - ASA Grade Assessment: III - A patient with severe systemic disease. - After reviewing the risks and benefits, thepatient was deemed in satisfactory condition to undergo the procedure. - The risks and benefits of the procedure and the sedation options and risks were discussed with the patient. All questions were answered and informed consent was obtained. After I obtained informed consent, the scope waspassed under direct vision. Throughout the procedure, the patient's blood pressure, pulse, and oxygensaturations were monitored continuously. The scope was passedunder direct vision. The Colonoscope was introducedthrough the anus and advanced to the the cecum, identifiedby the appendiceal orifice, ileocecal valve andpalpation. The colonoscopy was performed with ease. The qualityof the bowel preparation was good. The quality of the bowel preparation was evaluated using the BBPS(Wiggins Bowel Preparation Scale) with scores of: Right Colon= 3 (entire mucosa seen well with no residualstaining, small fragments of stool or opaque liquid),Transverse Colon = 3 (entire mucosa seen well with no residual staining, small fragments of stool or opaque liquid) and Left Colon = 2 (minor amount of residualstaining, small fragments of stool and/or opaque liquid, but mucosa seen well). The total BBPS score equals 8.The bowel preparation used was SUPREP. Bowel prep was administered using a split dose. Findings: The perianal and digital rectal examinations were normal. A 5 mm polyp was found in the ascending colon. The polyp was sessile. The polyp was removed with a cold snare. Resection and retrieval were complete. Estimated blood loss: none. Multiple medium-mouthed diverticula were found in the entire colon. Two sessile polyps were found in the sigmoid colon. The polyps were 3to 4 mm in size. These polyps were removed with a cold biopsy forceps. Resection and retrieval were complete. Estimated blood loss: none. Internal hemorrhoids were found during retroflexion. The hemorrhoids were mild. Impression: - One 5 mm polyp in the ascending colon. Resectedand retrieved. - Diverticulosis in the entire examined colon. - Two 3 to 4 mm polyps in the sigmoid colon.Resected and retrieved. - Internal hemorrhoids. Recommendation: - Repeat colonoscopy in 3 years for surveillance. - Discharge patient to home (ambulatory). - Await pathology results. - No aspirin, ibuprofen, naproxen, or other non-steroidal anti-inflammatory drugs after polyp removal. Procedure Code(s): --- Professional --- 47821, Colonoscopy, flexible; with removal oftumor(s), polyp(s), or other lesion(s) by snare technique 93747, 59, Colonoscopy, flexible; with biopsy,single or multiple Diagnosis Code(s): --- Professional --- D12.2, Benign neoplasm of ascending colon K64.8, Other hemorrhoids D12.5, Benign neoplasm of sigmoid colon R19.5, Other fecal abnormalities K57.30, Diverticulosis of large intestine without perforation or abscess without bleeding CPT copyright 2017 [employer]. All rights reserved. The codes documented in this report are preliminary and upon coding spec reviewmay be revised to meet current compliance requirements. Electronically signed by Grayson Arriola MD Grayson Arriola M.D. 11/19/2020 9:33:00 AM Number of Addenda: 0 Note Initiated On: 11/19/2020 8:53 AM Grayson Arriola MD ENDOSCOPY PROCEDURES Final Resul t * DIABETES FOOT EXAM (11/19/2017) Diabetic Foot Exam Normal SCRIBED DM FOOT SITES SENSED 6 Comment:6:6 sensed Historical Provider HEALTH MAINTENANCE Final Result from Last 3 Months or Most Recently Relevant to Health Maintenance [place] [address] [employer] SENIOR SUPPLEMENT MEDICARE [facility] MEDICARE [employer] SENIOR SUPPLEMENT MEDICARE [employer] SENIOR SUPPLEMENT Advance Directives For more information, please contact: [phone] Documents on File Type Date Recorded 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 ADVANCE DIRECTIVE 03/26/2023 10:07 AM Jennifer r of Geriatric Physical Therapist-Medical * Full Code (Latest Code Status on File) Date Activated Date Inactivated Comments 09/28/2025 5:49 PM 10/06/2025 10:10 PM * Full Code Date Activated Date Inactivated Comments 01/10/2025 12:45 AM 01/16/2025 8:50 PM * Full Code Date Activated Date Inactivated Comments 03/24/2023 11:36 AM 03/28/2023 4:16 PM * Full Code Date Activated Date Inactivated Comments 01/04/2021 2:57 PM 01/05/2021 8:53 PM * Full Code Date Activated Date Inactivated Comments 12/17/2017 2:53 PM 12/18/2017 6:23 PM Care Teams Flat Folding Machine Operator Relationship Specialty Start Date End Date Luis Carlos Calzada MD [address] [place] [address] PCP - General 02/09/17 Zena Pandya, RN [address] [place] [address] [address] [place], [place] [id number] Title Closer 10/07/25 Richie Arroyo LCSW [address] [place] [address] [address] [place] [address] Acid Etch Operator 10/07/25
--- OUTSIDE RECORDS SUMMARY | 2025-11-03 07:13 | XMS_ITS | Clinical Summary ---
Author Organization [facility] Address [address] [place] [address] Care Team Providers Care Professional Builder Name Role Phone Luis Carlos Calzada MD Primary Care Provider [phone] Source Comments [facility],non-owned Affiliates and Associated Physician Practices is amultiple site organization consisting of ambulatory clinics and hospital sitesin [place], [place], [place] and [place]. This disclosure is being madepursuant to the Care Everywhere program and may not contain all information available regarding this patient. Last updated 18.[facility] Allergies Active Allergy Reactions Criticality Noted Date Comments Aspirin 04/18/2017 Medications * Be aware that medications may not be up to date on this document. Alwaysverify current medications with the patient. 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 Gender Identity Not on file Sexual Orientation Not on file Last Filed Vital Signs Vital Sign Reading Time Taken Comments Blood Pressure 128/80 04/18/2017 10:09 AM CDT Pulse 100 04/18/2017 10:09 AM CDT Temperature 36.6 C (97.9 F) 04/18/2017 10:09 AM CDT Respiratory Rate - - Oxygen Saturation 100% 04/18/2017 10:09 AM CDT Inhaled Oxygen Concentration - - Weight 113.4 kg (250 lb) 04/18/2017 10:09 AM CDT Height 170.2 cm (5' 7) 04/18/2017 10:09 AM CDT Body Mass Index 39.16 04/18/2017 10:09 AM CDT Plan of Treatment Health Maintenance Due Date Last Done Comments MEDICARE AWV 12 MONTHS 1945 HEPATITIS C SCREENING 12/25/1965 DTAP/TDAP/TD VACCINES (1 - Tdap) 1966 PNEUMOCOCCAL VACCINE 50+ (1 of 1 - PCV) 1997 ZOSTER VACCINE (1 of 2) 1997 Respiratory Syncytial Virus (RSV) Vaccine Pt: or over 60 yrs (1 - 1-dose 75+ series) 2022 DEPRESSION SCREENING 11/12/2024 COVID-19 VACCINE (1 - 2024-2 6 season) 2025 INFLUENZA VACCINE (#1) 2025 HEPATITIS B VACCINE Aged Out No longe r eligible based on patient's age to complete this topic HIB VACCINE Aged Out No longer eligi ble based on patient's age to complete this topic HPV VACCINE Aged Out No longer eligi ble based on patient's age to complete this topic MENINGOCOCCAL (Group B) VACC INE SHARED DECISION-MAKING Aged Out No longer eligibl e based on patient's age to complete this topic MENINGOCOCCAL GROUPS A/C/Y/W VACCINE Aged Out No longer eligible b ased on patient's age to complete this topic Insurance MEDICARE MEDICARE Care Teams Professional Builder Relationship Specialty Start Date End Date Luis Carlos Calzada MD [address] [place] [address] PCP - General Internal Medicine 04/18/17
--- OUTSIDE RECORDS SUMMARY | 2025-11-03 07:13 | XMS_ITS | Clinical Summary ---
Author Organization [facility] Facility Address [address] [place] [address] Care Team Providers Care Acute Dialysis Nurse Name Role Phone Unavailable Primary Care Provider Unavailabl e Allergies No known active allergies Medications albuterol HFA (PROVENTIL HFA;VENTOLIN HFA) 108 (90 Base) MCG/ACT inhaler Inhale 2 puffs 01/21/20 25 Active Eliquis 5 MG tablet Take 5 mg by mouth every 12 (twelve) hours Active atorvastatin (LIPITOR) 80 MG tablet Take 80 mg by mouth in the morning. 09/10/20 25 Active Continuous Glucose Sensor (FreeStyle Dylan 3 Sensor) [facility] FREESTYLE DYLAN 3 SENSOR USE FOR 14 DAYS TO MONITOR BLOOD SUGAR., E11.65/Z79.4 10/07/20 25 Active glucose blood (OneTouch Verio) test strip 1 each by Other route 08/28/20 24 Active dilTIAZem XR (DILACOR XR) 120 MG 24 hr capsule Take by mouth 1 (one) time each day 10/07/20 25 Active DULoxetine (CYMBALTA) [address] capsule Take by mouth 1 (one) time each day 05/11/20 25 Active glipiZIDE (GLUCOTROL) 5 MG tablet TAKE 1 TABLET BY MOUTH TWICE DAILY BEFORE BREAKFAST AND LUNCH 05/28/20 25 Active gabapentin (NEURONTIN) 600 MG tablet Take 600 mg by mouth in the morning and 600 mg in the evening and 600 mg before bedtime. Active tamsulosin (FLOMAX) 0.4 MG 24 hr capsule Take 0.4 mg by mouth in the morning. 10/07/20 25 026 Active levothyroxine (SYNTHROID, LEVOTHROID) 75 MCG tablet Take 75 mcg by mouth in the morning. 08/11/20 25 Active Insulin Lispro 100 UNIT/ML solution Inject 1-14 Units under the skin in the morning and 1-14 Units at noon and 1-14 Units in the evening. Active Lantus SoloStar 100 UNIT/ML injection Inject 24 Units under the skin in the morning. 09/28/20 25 026 Active Sodium Zirconium Cyclosilicate (Lokelma) 10 g pack Take 1 packet by mouth 3 times weekly: Sun and Sunday morning Active furosemide (LASIX) 40 MG tablet Take 40 mg by mouth in the morning. 09/28/20 25 025 Discontinued (Discontinue d by another clinician (does not appear on AVS)) Sodium Zirconium Cyclosilicate (Lokelma) 10 g pack Take 10 g by mouth Once for 1 dose 1 each 3 10/26/20 025 Additional Information Patient not taking.Reported on 10/27/2025 Active Problems No known active problems Encounters Date Type Department Care Team Description 10/28/2025 Orders Only [facility] [address] [place] [phone] Latia Rajput MA 10/27/2025 10:30 AM VEGETABLE TRIMMER Office Visit [facility] [address] [place] [phone] Ryan Aceves MD Chronic kidney disease, stage 4 (severe) (HCC) (Primary Dx); Hypertension; Type 2 diabetes mellitus with diabetic nephropathy, not otherwise specified (HCC); Hyperkalemia; Anemia in chronic kidney disease; Chronic kidney disease stage 4 (HCC) 10/27/2025 Orders Only [facility] [address] [place] [phone] Brandy Weaver MA Chronic kidney disease, stage 4 (severe) (HCC) (Primary Dx) 10/26/2025 Documentation Only [facility] [address] [place] [phone] Ryan Aceves MD 10/20/2025 Documentation Only [facility] [address] [place] [address] Ryan Aceves MD 10/20/2025 Orders Only [facility] [address] [place] [phone] Latia Rajput MA Hyperkalemia (Primary Dx); Other acute kidney failure (HCC) 10/20/2025 Documentation Only [facility]. [address] [facility] [place] [phone] Lani Rajput MA 10/12/2025 Orders Only [facility]. [address] [facility] [place] [phone] Latia Rajput MA 10/12/2025 Orders Only [facility]. [address] [facility] [place] [phone] Latia Rajput MA Other acute kidney failure (HCC) (Primary Dx); Chronic diastolic congestive heart failure (HCC) from Last 3 Months Family History Medical History Relation Comments Alzheimer's disease Father Relation Status Comments Father Mother Social History Tobacco Use Types Packs/Day Years Used Date Smoking Tobacco: Never Assessed Sex and Gender Information Value Date Recorded Sex Assigned at Not on file Legal Sex Male 12:20 PM EDT Gender Identity Not on file Sexual Orientation Not on file Last Filed Vital Signs Vital Sign Reading Time Taken Comments Blood Pressure 118/74 10/27/2025 10:57 AM VEGETABLE TRIMMER Pulse 84 10/27/2025 10:57 AM VEGETABLE TRIMMER Temperature 36.6 C (97.8 F) 10/27/2025 10:57 AM VEGETABLE TRIMMER Respiratory Rate - - Oxygen Saturation 98% 10/27/2025 10:57 AM VEGETABLE TRIMMER Inhaled Oxygen Concentration - - Weight 103 kg (227 lb) 10/27/2025 10:57 AM VEGETABLE TRIMMER Height 162.6 cm (5' 4) 10/27/2025 10:57 AM VEGETABLE TRIMMER Body Mass Index 38.96 10/27/2025 10:57 AM VEGETABLE TRIMMER Plan of Treatment Upcoming Encounters Date Type Department Care Team (Late st Contact Info) Description 12/09/2025 3:15 PM VEGETABLE TRIMMER Office Visit [facility] [address] [facility] [place] [phone] Ryan Aceves MD [address] [facility] [place] [phone] 12/15/2025 10:45 AM VEGETABLE TRIMMER Office Visit [facility]. [address] [facility] [address] [place] [address] Ryan Aceves MD [address] [facility] [address] [place] [phone] Health Maintenance Due Date Last Done Comments Diabetes: Ophthalmology Exam 01/23/2025 Diabetes: Pedal Pulse Checked 01/23/2025 Diabetes: Sensory Foot Exam 01/23/2025 Diabetes: Visual Foot Exam 01/23/2025 Diabetes: Hemoglobin A1C 11/28/2025 025, 03/19/2025, 01/12/2025, Additional history exists Pneumococcal Vaccine: 50+ Years Completed 11/18/2021, 09/22/2020 Influenza Vaccine Completed 09/10/2025, , 09/02/2015, Additional history exists Hepatitis B Vaccine Aged Out No longe r eligible based on patient's age to complete this topic Insurance Medicare [employer]na [facility] ([id number])
--- OUTSIDE RECORDS SUMMARY | 2025-11-03 07:13 | XMS_ITS | Patient Health Record ---
Author Organization [facility] Address [address] [place] [address] Care Team Providers Care Licensed Pesticide Applicator Name Role Phone Juanita Mitchell Unavailable [phone] Allergies No Known Allergies Reason For Referral No Information Medications Medication SIG (Take, Route, Fr equency, Duration) Notes Start Date End Date Status metFORMIN HCl 1000 MG 1 tablet with a me al Orally Once a day Active Social History CRAFFT V2.1 Question Answer Notes 1. Drink more than a few sip s of beer, wine, or any drink containing alcohol? Say 0 if none 0 2. Use any marijuana (cannab is, weed, oil, wax, or hash by smoking, vaping, dabbing, or in edibles) or synthetic marijuana: (like K2, Spice)? Say 0 if none 0 3. Use anything else to get high (like other illegal drugs, pills, prescription or [id number] medications, and things that you sniff, morris, vape, or inject)? Say 0 if none 0 Have you ever ridden in a [place] R driven by someone (including yourself) who was high or had been using alcohol or drugs? No Problems Problem Type SNOMED Code ICD Code Onset Dates Problem Status W/U Status Risk Notes Problem Type II diabetes mellitus without complication (094334945) Type 2 diabetes mellitus without complications (E11.9) Active confirmed Problem Essential hypertension (58849432) Essential (primary) hypertension (I10) Active confirmed Plan Of Treatment No Information Insurance Providers Payer Name Payer Address Payer Phone Subscriber Number Group Number Insured Name Patient Relationship to Insured Coverage Start Date Coverage End Date [place] [employer] [address] [place] [phone] [id number] MONICO GLEASON Self - patient is the insured Medical (General) History Medical History History ICD Code rotator cuff tear Knee Replacement X2 right
== END 2025-11-03 07:09 | disposition home or self-care (01) ==
PROVIDERS: PCP Family Medicine; Visit Provider Student in an Organized Health Care Education/Training Program
DX: C61 Malignant neoplasm of prostate (principal); Z90.79 Acquired absence of other genital organ(s)
CPT/HCPCS: 78815; A9596